=== PATIENT | male | born 1955 | race Caucasian/White ===

== ENCOUNTER 2023-11-07 20:39 | Inpatient (IN) | payer OTHER, SELFPAY ==
[2023-11-07] VITALS (7 sets, daily range): BP systolic 119–141; BP diastolic 62–90; BMI 23.4; BMI 22.7
[2023-11-07 15:46] LABS: % Basophils 0.5 % (0-2); % Eosinophils 3.6 % (0-6); % Immature Granulocytes 0.2 % (0-0.5); % Lymphocytes 24.7 % (20.5-51.1); % Monocytes 9.2 % (1.7-9.3); % Neutrophils 61.8 % (42.2-75.2); Absolute Eosinophils 0.2 10^3/uL (0-0.7); Absolute Lymphocytes 1.4 10^3/uL (1.2-3.4); Absolute Monocytes 0.5 10^3/uL (0.1-0.6); Absolute Neutrophils 3.4 10^3/uL (1.4-6.5); Hematocrit 37.6 % (39.0-52.0); Hemoglobin 13.4 g/dL (13.0-18.0); Mean Corp Hgb Conc. 35.6 g/dL (33.0-37.0); Mean Corpuscular Hgb 32.4 pg (27.0-31.0); Mean Corpuscular Volume 90.8 fL (80.0-94.0); Mean Platelet Volume 10.2 fL (7.4-10.4); Nucleated Red Blood Cells % 0 % (-); Platelet Count 265 10^3/uL (130-400); Red Blood Cell Count 4.14 10^6/uL (4.70-6.10); Red Cell Dist. Width 13.4 % (11.5-14.5); White Blood Cell Count 5.6 10^3/uL (4.8-10.8)
[2023-11-07 16:04] LABS: INR 1.03; PT 13.5 Sec (11.4-14.6)
[2023-11-07 16:05] LABS: APTT 28.5 Sec (23.4-35.0)
[2023-11-07 16:06] LABS: ALT (SGPT) 368 U/L (0-50); AST (SGOT) 182 U/L (17-59); Albumin 4.3 g/dl (3.5-5.0); Alkaline Phosphatase 438 U/L (38-126); Blood Urea Nitrogen 15 mg/dl (9-20); Calcium 9.8 mg/dl (8.4-10.2); Carbon Dioxide 22 mmol/L (22-30); Chloride 101 mmol/L (98-107); Glucose 217 mg/dl (70-99); Lipase 45 U/L (23-300); Potassium 3.9 mmol/L (3.5-5.1); Sodium 137 mmol/L (135-145); Total Bilirubin 11.2 mg/dl (0.2-1.3); Total Protein 7.1 g/dl (6.3-8.2); eGFR > 60.00
--- NOTE | 2023-11-07 17:22 | ED.GENMED ---
History of Present Illness
General
Chief Complaint: Abdominal Symptoms
Source: patient
Time Seen by Provider: 11/07/23 17:11
History of Present Illness
History of Present Illness:
68yoM with a history of erectile dysfunction presenting for evaluation of abdominal pain. Patient reports abdominal and back pain for the past month or so. Pain is worse with eating. He has not been eating much due to his symptoms and has lost
about 20 pounds since his symptoms began. About 1 to 2 weeks ago, he started to notice that his urine appeared dark and his stool was very light-colored. noticed today that his skin started to appear yellow. His PCP and he was advised to go
to the ED for evaluation. Patient denies any regular alcohol use and has only had 1-2 drinks over the past several months. He takes 4 extra strength Tylenol daily for his pain. No previous abdominal surgeries.
Review of Systems
Review of Systems
Constitutional: Reports weight loss and fatigue
ABD/GI: Reports abdominal pain and anorexia
Phy Exam
General Physical Exam
General Presentation: no apparent distress
General age: appears stated age
General Skin: warm and dry
General Habitus: elderly
General Mental: alert
ENT Exam
ENT Exam: normocephalic
Cardiovascular Exam
Cardiovascular Exam: regular rate/rhythm
Pulmonary Exam
Pulmonary Exam: no respiratory distress
Gastrointestinal Exam
Gastrointestinal Exam: soft, non distended and tender (+Mild tenderness in lower abdomen. No rebound or guarding. )
Skin Exam
Skin Exam: warm/dry and jaundice
Psychiatric Exam
Psychiatric Exam: normal mood/affect
Course
Orders/Labs/Results
Orders:
Orders
11/07/23 15:39
Acetaminophen Urgent
Comment: ADD ON
Complete Blood Count/With Diff Urgent
Comprehensive Metabolic Panel Urgent
Lipase Urgent
PT/INR [Prothrombin Time] Urgent
PTT Urgent
11/07/23 17:22
CT Abd/pelvis W Iv Cont Urgent
Comment:
Reason For Exam: Abd pain, jaundice
11/07/23 17:34
Add On- LAB Urgent
Tests Added?: Tylenol level
11/07/23 20:02
Admit/Transfer Patient As Directed
Co-Sign Provider:
Level of Care: Inpatient admission
Assign to:: Medical/Surgical
Physician / Group: Radha
Diagnosis: Jaundice, Pancreatic Mass
Reason for Hospitalization: GI consult
Expected length of stay greater than two midnights?: Yes
ELOS- Estimated Length of Stay in days: 3
I certify the patient meets the requirements for IP care: Yes
11/07/23 20:03
Code Status As Directed
Resuscitation Status: Full Code
PRN Pain Medication Management As Directed
May give lesser potent ordered pain med per pt: Yes
preference::
Protocol:: Medication orders for pain may be administered in a
manner that supports deferring to patient preference
when the pt is:
- Requesting an ordered lesser potent pain medication.
Least to most potent pain medications are defined
as: acetaminophen < NSAID < tramadol < opioids
(morphine, oxycodone, hydromorphone).
- Requesting a lesser dose of the same medication IF
ORDERED.
- Requesting a less intrusive route of administration
if both routes are prescribed by the provider (PO <
IV).
Abnormal Lab Results
11/07/23
15:39
RBC 4.14 L 10^6/uL
(4.70-6.10)
Hct 37.6 L %
(39.0-52.0)
MCH 32.4 H pg
(27.0-31.0)
Glucose 217 H mg/dl
(70-99)
Total Bilirubin 11.2 H mg/dl
(0.2-1.3)
AST 182 H U/L
(17-59)
ALT 368 H U/L
(0-50)
Alkaline Phosphatase 438 H U/L
(38-126)
Acetaminophen < 10 L ug/ml
(10-30)
11/07/23 15:39
11/07/23 15:39
Vital Signs
Initial and Last Documented VS:
Initial Vital Signs
Temp Pulse Resp BP Pulse Ox
97.9 F 74 16 129/77 98
11/07/23 15:30 11/07/23 15:30 11/07/23 15:30 11/07/23 15:30 11/07/23 15:30
Last Documented Vital Signs
Temp Pulse Resp BP Pulse Ox
97.9 F 74 16 131/90 99
11/07/23 15:30 11/07/23 15:30 11/07/23 15:30 11/07/23 20:00 11/07/23 20:00
MDM/Problems Addressed
Differential Diagnosis Includes:
68yoM here with abdominal pain x 1 month with new jaundice. +Fatigue and weight loss. VSS. He is visibly jaundiced on exam. No signs of peritonitis on abdominal exam. Differential diagnosis includes but is not limited to: malignancy,
choledocholithiasis, pancreatitis, hepatitis
Initial ED plan: Abdominal labs checked in triage. Total bilirubin 11, AST 182, ALT 368. Lipase normal. Will proceed with CT abdomen.
*Critical Care Note
Total Time (30-74mins, 75-104mins- exclusive of procedures): Not Applicable
Update Note
Update Note:
CT abdomen shows findings concerning for malignancy with pancreatic head mass with biliary ductal dilatation and possible hepatic metastases. Patient and informed of results. He was admitted for further evaluation.
ED Attending Note
-
Portions of this chart may have been created with voice recognition software.� Occasional wrong word or��sound alike� substitutions may have occurred due to the inherent limitations of voice recognition software.
Discharge Plan
Departure
Patient Disposition: Admit
Date of Disposition: 11/07/23
Time of Disposition: 19:26
Presentation/result/management discussed w/ accepting MD/DO: Hospitalist
Discharge Problem:
Pancreatic mass, Obstructive jaundice
Interventions
Interventions:
*Risk Screen - Suicide Last Done: 11/07/23 17:21
*General Assessment Last Done: 11/07/23 17:21
*Neglect/Abuse Screening Last Done: 11/07/23 17:21
ED- Fall Risk Assessment Last Done: 11/07/23 17:21
*ED COVID-19 Vaccine History Last Done: 11/07/23 17:21
RZ-Digxdz-Tukyifphys Assessment Last Done: 11/07/23 17:21
[2023-11-07 18:30] LABS: Acetaminophen < 10 ug/ml (10-30)
--- NOTE | 2023-11-07 19:59 | HPS.HSE ---
Family Physician
-
Family Physician: Sanford Momin, DO
Chief Complaint
-
Jaundice
History of Present Illness
Patient is a 68 y/o male without significant past medical history who presents with jaundice x 1 day. Patient reports he has been experincing some mid back pain that radiates around the rib cage for the past 2-3 weeks. Patient reports dark urine
with light colored stool over the past 1-2 weeks. Today he noticed his skin was yellow and he came to the emergency department for evaluation. Patient reports 20 lb weight loss over the past few weeks. He denies any fevers, sweats or chills.
Medical History
Past Medical History
Past Medical History: Reports None
Past Surgical History: Reports Other
Additional Past Surgical History:
Orchiectomy for undescended testicle
Social History
Tobacco: Non-smoker
Alcohol: Occasional (No alcohol since July)
Family History
Family History: Not pertinent
Allergies / Home Medications
Allergies reflects when Allergies were last updated in [employer].
Home Medications with original date entered in [employer]
Allergy/Medication List:
Allergies
Allergy/AdvReac Type Severity Reaction Status Date / Time
No Known Allergies Allergy Unverified 11/07/23 15:33
Home Medications
doxylamine succinate 25 mg tablet (Sleep Aid (doxylamine)) 25 mg PO HSPRN PRN sleep 11/07/23
ibuprofen 200 mg tablet 400 mg PO Q6HPRN PRN mild pain 11/07/23
sildenafil 25 mg tablet 25 mg PO DAILYPRN PRN ED 11/07/23
therapeutic multivitamin 1 tab PO DAILY 11/07/23
Review of Systems
-
A 12 point ROS was completed and negative except as noted: Yes
Constitutional: Denies Fever or Chills
Respiratory: Denies Cough or Trouble Breathing
Cardiac: Denies Chest Pain or Palpitations
Abdomen/GI: Reports See HPI
Physical Exam
Vital Signs
Vital Signs
Temp Pulse Resp BP Pulse Ox
97.9 F 74 16 141/84 98
11/07/23 15:30 11/07/23 15:30 11/07/23 15:30 11/07/23 19:09 11/07/23 19:10
Physical Exam
General: Comfortable and Conversant
HEENT: Moist mucous membranes and Other (Sclera Icteric)
Respiratory: Clear and Non Labored Respirations
Cardiac: S1/S2 and Regular Rhythm
GI: Soft, Non Tender and Non Distended
Rectal: Deferred by Provider
Musculoskeletal: No Clubbing, No Cyanosis and No Edema
Skin: Warm, Dry and Jaundice
Neuro: Awake, Alert, Oriented and Nonfocal/grossly intact
Psych: Calm
Laboratory Results
-
11/07/23 15:39
11/07/23 15:39
Laboratory Results
PT 13.5 Sec (11.4-14.6) 11/07/23 15:39
INR 1.03 11/07/23 15:39
APTT 28.5 Sec (23.4-35.0) 11/07/23 15:39
Total Bilirubin 11.2 mg/dl (0.2-1.3) H 11/07/23 15:39
AST 182 U/L (17-59) H 11/07/23 15:39
ALT 368 U/L (0-50) H 11/07/23 15:39
Alkaline Phosphatase 438 U/L (38-126) H 11/07/23 15:39
Lipase 45 U/L (23-300) 11/07/23 15:39
Abd/Pelvis CT Scan:
Findings suspicious for pancreatic head mass/primary malignancy with biliary ductal dilatation.
Several small scattered low-attenuation hepatic lesions suspicious for malignancy/metastatic disease
Sigmoid diverticulosis..
Small simple left renal cyst.
Data Reviewed
-
CT Scan: Report Reviewed by me
Lab Data: Labs Reviewed by me
Impression/Plan
-
Obstructive Jaundice secondary to Pancreatic Mass
-Consult GI
-Check CA 19-9
-Check Abd MRI
-NPO after midnight for possible ERCP/EUS tomorrow
DVT proph: Lovenox
Code Status: Full Code
--- NOTE | 2023-11-07 20:21 | W.PN.UPDATE ---
Update Note
Progress Note Update
Patient seen in conjunction with LISSET. I agree with her findings on history and physical. I concur with the assessment and plan unless stated otherwise.
Briefly this is a 68-year-old male who is otherwise healthy developed abdominal and back pain approximately over 1 month ago. Initially thought this was dyspepsia possibly from H. pylori. He was able to tolerate the pain with minimal nausea or
vomiting. He was using Tylenol 650 mg for pain control and especially to help him sleep at night. He follow-up with his PMD who did not provide a definitive diagnosis. Patient continued to tolerate pain. However this a.m. he woke up with skin
jaundice suddenly. He denied any changes in his abdominal pain. He denies any new vomiting. He denies fevers or chills. Patient denies any history of gallstones. He denies a family history of biliary or liver disease. He has no new medications.
In the emergency department the patient was afebrile hemodynamically stable in no acute distress. CBC was unremarkable. Chemistries were also stable except for elevated total bilirubin of 11.2 ALT of 22 AST of 360 and alk phos of 438. Lipase was
normal.
Her CT of the abdomen pelvis with contrast shows a pancreatic head mass with biliary ductal dilatation and small scattered lesions in the liver.
Assessment and plan
New onset jaundice with mild abdominal pain�new finding of pancreatic head mass consistent with likely pancreatic carcinoma.
- admit to med/surg
- NPO after midnight
- pain control and antiemetics
- check panc ca marker
- MRI abd/ MRCP in am
- possible endoscopic procedure in am
- GI consultation
DVT PPX - lovenox sq
Code Status - Full
[2023-11-07] MEDS: NSS 1000 IV (21:40)
--- NOTE | 2023-11-07 21:59 | PTCARENOTE ---
Patient arrived on unit @0 via stretcher, ambulate from stretcher to bed. Patient AAOx3 denies any pain or discomfort. Skin assessment completed, oriented to unit, call schwab in reach.
[2023-11-08] VITALS (9 sets, daily range): BP systolic 98–140; BP diastolic 57–81; BMI 22.6
[2023-11-08 07:58] LABS: Hematocrit 35.2 % (39.0-52.0); Hemoglobin 13.1 g/dL (13.0-18.0); Mean Corp Hgb Conc. 37.2 g/dL (33.0-37.0); Mean Corpuscular Hgb 34.1 pg (27.0-31.0); Mean Corpuscular Volume 91.7 fL (80.0-94.0); Mean Platelet Volume 10.2 fL (7.4-10.4); Platelet Count 237 10^3/uL (130-400); Red Blood Cell Count 3.84 10^6/uL (4.70-6.10); Red Cell Dist. Width 13.5 % (11.5-14.5); White Blood Cell Count 5.3 10^3/uL (4.8-10.8)
[2023-11-08] MEDS: FLOMAX 0.4 MG PO (07:58)
--- NOTE | 2023-11-08 08:40 | CON.GI ---
Addendum entered and electronically signed by Leonela Schafer MD 11/08/23 10:19:
I saw and examined the patient.
The DAMASCENER's note was reviewed and I agree with the note.
Comment: This is a very pleasant 68-year-old male with no significant past medical history who was in his usual state of health up until about 3 to 4 weeks ago when he started to experience epigastric pain radiating to the back associated with loss
of appetite and about a 8 pound weight loss. 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 He had seen his PCP and was recommended blood work and also
was started on PPI which he says somewhat helped with his symptoms and he was also going to get an H. pylori stool test so he had held his PPI for 10 days and then he had blood work yesterday but he had also noticed yesterday that he looked
jaundiced on his chest called his PCP and was told to come into the ER and on admission he had a CT scan which was concerning for a pancreatic head mass and had labs consistent with obstructive jaundice. No rectal bleeding or melena no diarrhea or
constipation. He says his colonoscopy was over 10 years ago he did have a Cologuard last year that was negative.
Assessment and plan. Obstructive jaundice and MRI confirms pancreatic head mass with liver lesions concerning for mets and also possible neoplastic lymphadenopathy noted. Will schedule him for EUS for biopsy and staging with ERCP and stent
placement with Dr. Garrison later today and if not able to perform today then tomorrow. Currently has no signs of cholangitis or pruritus. Oncology also has been consulted, CA 19-9 and CEA are pending
11/08/23 MRI with MRCP
IMPRESSION: There is an obstructing pancreatic head mass, almost certainly represents pancreatic carcinoma. See above description.
There are hepatic lesions with increased diffusion-weighted signal and decreased enhancement postcontrast, which are highly suspicious for hepatic metastatic lesions.
Slightly enlarged lymph node just inferior to the portacaval space. [id number] lymph node in the interaortocaval region. These are suspicious for neoplastic lymphadenopathy.
Original Note:
Consultation
-
Date/Time Consultation Requested: 11/07/23 2100
Date/Time Consultation Performed: 11/08/23 0840
Requesting Provider: Shae Jensen PA-C
Performing Provider: LISSET Bennett, Leonela Schafer MD
Reason for Consultation: jaundice
Medical History
Chief Complaint / HPI
Chief Complaint: back pain, jaundice
History of Present Illness:
Pt is a 68yo without significant past medical history with onset of jaundice with back pain, nausea and wt loss. On admission noted with bilirubin 11.2 with ASt 182, ALT 368, alk phod 438 with lipase of 45. CT on admission with concern for
pancreatic head mass/ malignancy with ductal dilatation, and several scattered low attenuation hepatic lesions with concern for mets.
In review with patient noted with recent GERD and though he had H pylori as recent partner Paty was treated for disease. He was due for OP stool testing but not completed. He also developed wt loss and back pain with increased NSAID use over
last 2-3 weeks. He then noted dark urine and change in stools with onset of jaundice. He has one episode of vomiting with mild nausea. He denies dysphagia. diarrhea, constipation, or black stools. distant
Past Medical History
Past Medical History: Other (H pylori)
Social History
Tobacco: Non-Smoker
Alcohol: Occasional
Drug: None
Personal: Partner
Living: With Family
Employment: Retired
Family History
Family History: Other (mother with lung CA, no family hx pancreatic CA or colon CA)
Allergies / Home Medications
Allergy/AdvReac Type Severity Reaction Status Date / Time
No Known Allergies Allergy Unverified 11/07/23 15:33
�Medication �Instructions �Recorded
doxylamine succinate 25 mg tablet 25 mg PO HSPRN PRN sleep 11/07/23
(Sleep Aid (doxylamine))
ibuprofen 200 mg tablet 400 mg PO Q6HPRN PRN mild pain 11/07/23
sildenafil 25 mg tablet 25 mg PO DAILYPRN PRN ED 11/07/23
therapeutic multivitamin 1 tab PO DAILY Supplement 11/07/23
Review of Systems
-
History Source: Patient
Constitutional: Reports Weight Loss
EENT: Reports No Symptoms
Respiratory: Reports No Symptoms
Cardiac: Reports No Symptoms
Abdomen/GI: Reports Nausea, Vomiting and Other (indigestion, change in stool color)
: Reports Dark Urine
Musculoskeletal: Reports Other (back pain )
Skin: Reports No Symptoms
Neurological: Reports No Symptoms
Endocrine: Reports No Symptoms
Hematologic/Lymphatic: Reports No Symptoms
Vital Signs
Temp Pulse Resp BP Pulse Ox
98.0 F 67 16 119/62 98
11/07/23 23:35 11/07/23 23:35 11/07/23 23:35 11/07/23 23:35 11/07/23 23:35
Physical Exam
Exam
General: Well Developed, Well Nourished and No Apparent Distress
HEENT: Normocephalic and Other (marked jaundice )
Respiratory: Clear
Cardiac: Regular Rhythm
GI: Soft, Non Tender and Non Distended
Musculoskeletal: No Clubbing and No Cyanosis
Skin: Warm and Dry
Neuro: Awake, Alert and AO x 3
Psych: Calm
Results
WBC 5.3 10^3/uL (4.8-10.8) 11/08/23 07:28
Hgb 13.1 g/dL (13.0-18.0) 11/08/23 07:28
Hct 35.2 % (39.0-52.0) L 11/08/23 07:28
MCV 91.7 fL (80.0-94.0) 11/08/23 07:28
Plt Count 237 10^3/uL (130-400) 11/08/23 07:28
Absolute Neuts (auto) 3.4 10^3/uL (1.4-6.5) 11/07/23 15:39
PT 13.5 Sec (11.4-14.6) 11/07/23 15:39
INR 1.03 11/07/23 15:39
APTT 28.5 Sec (23.4-35.0) 11/07/23 15:39
Sodium 137 mmol/L (135-145) 11/07/23 15:39
Potassium 3.9 mmol/L (3.5-5.1) 11/07/23 15:39
Chloride 101 mmol/L (98-107) 11/07/23 15:39
Carbon Dioxide 22 mmol/L (22-30) 11/07/23 15:39
BUN 15 mg/dl (9-20) 11/07/23 15:39
Creatinine 0.8 mg/dL (0.7-1.3) 11/07/23 15:39
Calcium 9.8 mg/dl (8.4-10.2) 11/07/23 15:39
Total Bilirubin 11.2 mg/dl (0.2-1.3) H 11/07/23 15:39
AST 182 U/L (17-59) H 11/07/23 15:39
ALT 368 U/L (0-50) H 11/07/23 15:39
Alkaline Phosphatase 438 U/L (38-126) H 11/07/23 15:39
Lipase 45 U/L (23-300) 11/07/23 15:39
Diagnostic Image Results:
11/07/23 CT Abd/pelvis W Iv Cont
Findings suspicious for pancreatic head mass/primary malignancy with biliary ductal dilatation.
Several small scattered low-attenuation hepatic lesions suspicious for malignancy/metastatic disease
Sigmoid diverticulosis..
Small simple left renal cyst
Prior GI Procedures:
EGD: none
Colonoscopy: years ago-- hx colonguard neg last year
Assessment / Plan
-
Pt is a 68yo without significant past medical history with onset of jaundice with back pain, nausea, wt loss, dark urine and change in stool color. On admission noted with bilirubin 11.2 with ASt 182, ALT 368, alk phod 438 with lipase of 45. CT on
admission with concern for pancreatic head mass/ malignancy with ductal dilatation, and several scattered low attenuation hepatic lesions with concern for mets. distant hx colonoscopy. reports neg cologuard last year.
-new onset jaundice with nausea/indigestion and back pain with elevated LFT's
-CT concerning for pancreatic mass/ductal dilatation and hepatic lesions
-recent NSAID use for back pain
-wt loss
PLAN:
etiology of jaundice/nausea/wt loss/back pain with concern for pancreatic malignancy with alsi noted liver lesions
await MRI reading
trend LFT's
reviewed with patient will likely need EUS/ERCP with stenting and biopsy possible later today vs tomorrow
Ct ordered by primary team reviewed with nursing to hold for now with possible EUS today
for oncology evaluation
add CEA and Ca19-9
will follow
-
-
Thank you for consultation and allowing me to participate in the patient's care. Please call the professional benefits sales consultant GI physician during the after hours with any questions or concerns.
--- NOTE | 2023-11-08 08:49 | W.PN.HOSP.TC ---
Today's Communication/Plan
-
See PN
Assessment / Plan
Assessment / Plan
68yo M with no significant PMHx, never a smoker, however drinking 1-2 bottles of beer daily for many years came with 1 mo of epigastric pain and jaundice, found pancreatic mass and signs of biliary and pancreatic duct obstruction with bilirubinemia
A/P
#Pancreatic mass with biliary and pancreatic duct obstruction with several hepatic lesions suspected for metastatic disease
Follow LFT
MRCP reading pending
GI consult
Onc consult
initial imaging for staging with CT head/chest/abd/pelvis
#Diverticulosis w/o diverticulitis
#Simple L renal cyst
high fiber diet
DVT ppx Lovenox
Full code
I have spent at least 58min reviewing chart, test results, communication with consultants and direct patient care
Anticipated Discharge: 24 - 48 hours
Subjective/Interval History
-
Date of Service: November 08, 2023
Objective Data
-
Labs:
Laboratory Results
11/08/23
07:28
WBC 5.3
Hgb 13.1
Hct 35.2 L
Plt Count 237
Sodium Pending
Potassium Pending
Chloride Pending
Carbon Dioxide Pending
BUN Pending
Creatinine Pending
Glucose Pending
Calcium Pending
Total Bilirubin Pending
AST Pending
ALT Pending
Alkaline Phosphatase Pending
Vital Signs:
Vital Signs
Temp Pulse Resp BP Pulse Ox
98.0 F 67 16 119/62 98
11/07/23 23:35 11/07/23 23:35 11/07/23 23:35 11/07/23 23:35 11/07/23 23:35
I&O
11/07/23 11/08/23 11/09/23
06:59 06:59 06:59
Intake Total 934 / 934
Balance 934 / 934
Review of Systems
-
History Source: Patient
All other systems: Reviewed and negative
Physical Exam
-
General: No Apparent Distress
HEENT: Normocephalic
Respiratory: Clear to Auscultation
Cardiac: Regular Rhythm and S1/S2
GI: Soft and Nontender (mild epigastric tenderness )
Genito-urinary: No Costovertebral Tender
Skin: Warm and Jaundice
Neuro: Awake, Alert, Oriented and AO x 3
Psych: Calm
[2023-11-08 08:52] LABS: ALT (SGPT) 322 U/L (0-50); AST (SGOT) 160 U/L (17-59); Albumin 3.8 g/dl (3.5-5.0); Alkaline Phosphatase 431 U/L (38-126); Blood Urea Nitrogen 11 mg/dl (9-20); Calcium 9.2 mg/dl (8.4-10.2); Carbon Dioxide 23 mmol/L (22-30); Chloride 105 mmol/L (98-107); Estimated Creatinine Clearance 117 ml/min; Glucose 115 mg/dl (70-99); Potassium 4.1 mmol/L (3.5-5.1); Sodium 139 mmol/L (135-145); Total Bilirubin 10.9 mg/dl (0.2-1.3); Total Protein 6.4 g/dl (6.3-8.2); eGFR > 60.00
--- NOTE | 2023-11-08 10:53 | CON.ONC ---
Documented by User: LISSET Randall 11/08/23 11:06
Impression
Impression
p/w painless jaundice
pancreatic mass with biliary and pancreatic duct obstruction, several hepatic lesions, and adenopathy suggestive of pancreatic cancer with metastasis
weight loss
Plan
Plan
f/u CEA, Ca 19.9
f/u CT chest
f/u hepatitis C ab
f/u ERCP/EUS
f/u GI consult
Will follow for pathology and arrange close outpatient follow up with my office
Patient History
History of Present Illness
68yo M presented with jaundice. He tells me that he has become jaundice with tea colored urine over the past several weeks. He was referred to the ER with OP labs showed an elevated bilirubin level for further evaluation. ER evaluation showed WBC
5.6, Hgb 13.4, MVC 90.8, platelet count 265,000, PT 13.5, INR 1.03, PTT 28.5, Tbili 11.2, AST 160, ALT 322, Alk phos 431. CT ab/pelvis showed a pancreatic head mass with biliary ductal dilatation and several small scattered low-attenuation hepatic
lesions. MRCP showed obstructing pancreatic head mass, hepatic lesions, and slightly enlarged lymph node just inferior to the portacaval space and lymph node in the interaortocaval region. He has been admitted for further evaluation.
Afebrile, no hypoxia or hypotension
Past-Medical/Surgical History
PSH wisdom teeth, undescended testicle
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 Lives with partner, Paty.
Family: mother lung cancer
Patient Medication
�Medication �Instructions �Recorded �Confirmed �Last Taken �Type
doxylamine succinate 25 mg tablet 25 mg PO HSPRN PRN sleep 11/07/23 11/07/23 Unknown History
(Sleep Aid (doxylamine))
ibuprofen 200 mg tablet 400 mg PO Q6HPRN PRN mild pain 11/07/23 11/07/23 11/07/23 History
sildenafil 25 mg tablet 25 mg PO DAILYPRN PRN ED 11/07/23 11/07/23 Unknown History
therapeutic multivitamin 1 tab PO DAILY Supplement 11/07/23 11/07/23 11/07/23 History
Active Medications
Generic Name Dose Route Start Last Admin
Trade Name Freq PRN Reason Stop Dose Admin
Acetaminophen 650 mg 11/07/23 21:11
Acetaminophen 325 Mg Tablet PO 12/05/23 21:10
Q4HPRN PRN
mild pain/ fever>100.5F
Enoxaparin Sodium 40 mg 11/08/23 18:00
Enoxaparin Sodium 40 Mg/0.4 Ml Syringe SC 12/06/23 17:59
QPM CHHAYA
Sodium Chloride 1,000 mls @ 80 mls/hr 11/07/23 21:11 11/07/23 21:40
Nss IV 1,000 mls
.[id number] CHHAYA Administration
Ondansetron HCl 4 mg 11/07/23 21:11
Ondansetron 4 Mg/2 Ml Vial IV 12/05/23 21:10
Q6HPRN PRN
NAUSEA/VOMITING
Oxycodone HCl 5 mg 11/07/23 21:11
Oxycodone 5 Mg Regular Release Tablet PO 11/21/23 21:10
Q4HPRN PRN
moderate/severe pain
Sodium Chloride 0 flush 11/07/23 22:00
Sodium Chloride 0.9% (Flush) Syringe IV 12/05/23 21:59
PER PROTOCOL CHHAYA
Tamsulosin HCl 0.4 mg 11/08/23 08:00 11/08/23 07:58
Tamsulosin 0.4 Mg Capsule PO 12/06/23 07:59 0.4 mg
DAILY CHHAYA Administration
Review of Systems
-
Review of systems notable for HPI, otherwise negative
Physical Exam
-
General: No Apparent Distress and Conversant
HEENT: Jaundice and Moist Mucous Membranes
Cardiology: Normal Sinus Rhythm
Pulmonary: Clear
GI: Soft
Extremities: Pulses Present; Negative Phlebitic Signs or Edema
Neurology: Non Focal
Skin: Warm
Psych: Calm
Labs
Lab Results
WBC 5.3 10^3/uL (4.8-10.8) 11/08/23 07:28
RBC 3.84 10^6/uL (4.70-6.10) L 11/08/23 07:28
Hgb 13.1 g/dL (13.0-18.0) 11/08/23 07:28
Hct 35.2 % (39.0-52.0) L 11/08/23 07:28
MCV 91.7 fL (80.0-94.0) 11/08/23 07:28
MCH 34.1 pg (27.0-31.0) H 11/08/23 07:28
MCHC 37.2 g/dL (33.0-37.0) H 11/08/23 07:28
RDW 13.5 % (11.5-14.5) 11/08/23 07:28
Plt Count 237 10^3/uL (130-400) 11/08/23 07:28
MPV 10.2 fL (7.4-10.4) 11/08/23 07:28
Abs Immat Gran (auto) 0.0 10^3/uL (0-0.05) 11/07/23 15:39
Absolute Neuts (auto) 3.4 10^3/uL (1.4-6.5) 11/07/23 15:39
Absolute Lymphs (auto) 1.4 10^3/uL (1.2-3.4) 11/07/23 15:39
Absolute Monos (auto) 0.5 10^3/uL (0.1-0.6) 11/07/23 15:39
Absolute Eos (auto) 0.2 10^3/uL (0-0.7) 11/07/23 15:39
Absolute Basos (auto) 0.0 10^3/uL (0-0.2) 11/07/23 15:39
Immature Gran % 0.2 % (0-0.5) 11/07/23 15:39
Neutrophils % 61.8 % (42.2-75.2) 11/07/23 15:39
Lymphocytes % 24.7 % (20.5-51.1) 11/07/23 15:39
Monocytes % 9.2 % (1.7-9.3) 11/07/23 15:39
Eosinophils % 3.6 % (0-6) 11/07/23 15:39
Basophils % 0.5 % (0-2) 11/07/23 15:39
Creatinine 0.7 mg/dL (0.7-1.3) 11/08/23 07:28
Vital Signs
Vital Signs
Temp Pulse Resp BP Pulse Ox
98.1 F 68 16 140/77 98
11/08/23 07:00 11/08/23 07:00 11/08/23 07:00 11/08/23 07:00 11/08/23 07:00

Documented by User: Baljeet Hammer DO 11/08/23 11:14
Impression
Impression
Painless jaundice
Pancreatic mass with biliary and pancreatic duct obstruction, several hepatic lesions, and adenopathy suggestive of pancreatic cancer with metastasis
Weight loss
Plan
Plan
f/u CEA, Ca 19.9
f/u CT chest
f/u hepatitis C ab
f/u ERCP/EUS
f/u GI consult
Will follow for pathology and arrange close outpatient follow up with my office for systemic therapy for what appears to be advanced disease
Patient History
History of Present Illness
68yo M presented with jaundice. He tells me that he has become jaundice with tea colored urine over the past several weeks. He was referred to the ER with OP labs showed an elevated bilirubin level for further evaluation. ER evaluation showed WBC
5.6, Hgb 13.4, MVC 90.8, platelet count 265,000, PT 13.5, INR 1.03, PTT 28.5, Tbili 11.2, AST 160, ALT 322, Alk phos 431. CT ab/pelvis showed a pancreatic head mass with biliary ductal dilatation and several small scattered low-attenuation hepatic
lesions. MRCP showed obstructing pancreatic head mass, hepatic lesions, and slightly enlarged lymph node just inferior to the portacaval space and lymph node in the interaortocaval region. He has been admitted for further evaluation.
[2023-11-08] MEDS: NSS 1000 IV (11:12)
[2023-11-08 11:48] LABS: CEA 4.95 ng/ml
--- NOTE | 2023-11-08 13:53 | PN.CDI ---
Addendum entered and electronically signed by Conor Turk MD 11/08/23 14:09:
Not applicable to this patient
Original Note:
CDI
- -
CDI:
Physician Documentation Request
Admit Date: 11/07/23 20:39
Dear Doctor Rosalee,
Clinical Indicators:
Patient admitted with pancreatic mass & jaundice.
11/07 note/assessment: 'pt reports a 20 lb weight loss in past month with decreased appetite due to pain that
radiated around his back.'
-'Weight loss reflective of (10%), significant. With weight loss of > 5% in 1 month and
< 75% estimated needs pt meets AND/ASPEN criteria for moderate protein calorie
malnutrition of chronic illness.'
Based on the above information and your assessment, which of the following most accurately represents the patient's nutritional status?
Moderate Protein Calorie Malnutrition
Other (please specify)
Winth[place] Criteria (ACP Hospitalist 2017)
2 or more criteria must be present for either
non severe or severe malnutrition
Note that the criteria differs related to the
presence of an acute or chronic illness
Acute Illness Chronic Illness
Energy Intake Non Severe: <75% for >7 days Non Severe: <75% for >1 month
Severe: <50% for >5 days Severe: <75% for >1 month
Weight Loss Non Severe: 1-2% over 1 week Non Severe: 5% over 1 month
5% over 1 month 7.5% over 3 months
7.5% over 3 months 10% over 6 months
1 year N/A 20% over 1 year
Severe: >2% over 1 week Severe: >5% over 1 month
>5% over 1 month >7.5% over 3 months
>7.5% over 3 months >10% over 6 months
1 year N/A >20% over 1 year
Body Fat Non Severe: Mild Decrease Non Severe: Mild Loss
Severe: Moderate Decrease Severe: Severe Loss
Muscle Mass Non Severe: Mild Decrease Non Severe: Mild Loss
Severe: Moderate Decrease Severe: Severe Loss
Fluid Accumulation Non Severe: Mild Accumulation Non Severe: Mild Accumulation
Severe: Moderate to severe Severe: Moderate to severe
accumulation accumulation
Reduced Supervisor [employer] Strength Non Severe: N/A Non Severe: N/A
Severe: Measurably reduced Severe: Measurably reduced
Additional criteria that can be used to Determine if Mild or Moderate Malnutrition ([employer] Manual 2018)
Mild Moderate Severe
Albumin gm/dl <3.0 gm/dl <2.5 gm/dl <2.0 gm/dl
Pre Albumin mg/dl <15 gm/dl <10 mg/dl <5.0 mg/dl
BMI <18.5 <17 <16
Use of terms such as suspected, likely, concern for, or probable (associated with a specific diagnosis that is being evaluated, monitored, or treated as if it exists) are acceptable and can be coded in the inpatient setting, when documented at the
time of discharge.
Thank you,
Tasia Larson RN BSN
CDI Specialist
available via tiger text
Please use your independent medical judgment in providing your response.
--- NOTE | 2023-11-08 15:21 | CM ---
Alert awake oriented patient who lives with his PHILLY Newman who lives in a 2 story home with 0 step to enter and 12 steps to bed and bathroom. Pt was at an ERCP spoke with PHILLY Newman on phone.He is independent in driving and in all activities of daily
living.Paty believes he will be dc with out pt follow up.
No VN hx / No SNF history
Pharmacy [facility]
PCP DR Grace Momin
PLAN Home with no anticipated VN needs
[2023-11-08] MEDS: OMNIPAQUE 50 ML PO (16:27)
[2023-11-08] MEDS: LOVENOX 40 MG SC (17:48)
[2023-11-08 20:44] LABS: Hepatitis C Antibody Negative (Negative)
[2023-11-09] MEDS: NSS 1000 IV (04:43)
[2023-11-09 06:00] VITALS: BMI 23.1
[2023-11-09 06:27] LABS: Hematocrit 33.3 % (39.0-52.0); Hemoglobin 12.2 g/dL (13.0-18.0); Mean Corp Hgb Conc. 36.6 g/dL (33.0-37.0); Mean Corpuscular Hgb 33.3 pg (27.0-31.0); Mean Platelet Volume 10.6 fL (7.4-10.4); Platelet Count 237 10^3/uL (130-400); Red Blood Cell Count 3.66 10^6/uL (4.70-6.10); Red Cell Dist. Width 13.6 % (11.5-14.5); White Blood Cell Count 5.6 10^3/uL (4.8-10.8)
[2023-11-09 06:40] LABS: ALT (SGPT) 304 U/L (0-50); AST (SGOT) 135 U/L (17-59); Albumin 3.6 g/dl (3.5-5.0); Alkaline Phosphatase 374 U/L (38-126); Blood Urea Nitrogen 11 mg/dl (9-20); Carbon Dioxide 22 mmol/L (22-30); Chloride 104 mmol/L (98-107); Direct Bilirubin 3.7 mg/dl (0.0-0.4); Estimated Creatinine Clearance > 125 ml/min; Glucose 148 mg/dl (70-99); Potassium 4.4 mmol/L (3.5-5.1); Sodium 139 mmol/L (135-145); Total Bilirubin 5.1 mg/dl (0.2-1.3); Total Protein 6.2 g/dl (6.3-8.2); eGFR > 60.00
[2023-11-09 07:30] VITALS: BP 119/71
[2023-11-09] MEDS: FLOMAX 0.4 MG PO (08:22)
--- NOTE | 2023-11-09 08:47 | W.PN.GI.CBS2 ---
Today's Communication / Plan
-
-- good nutrition. GI sign off, Dr. Garrison in 4 months
Assessment / Plan
-
Pt is a 68yo without significant past medical history with onset of jaundice with back pain, nausea, wt loss, dark urine and change in stool color found to have unresectable pancreatic cancer based on EUS and imaging with FNA pending done on
11/08/2023 now status post palliative stenting. On admission noted with bilirubin 11.2 with ASt 182, ALT 368, alk phod 438 with lipase of 45. CT on admission with concern for pancreatic head mass/ malignancy with ductal dilatation, and several
scattered low attenuation hepatic lesions with concern for mets. distant hx colonoscopy. reports neg cologuard last year.
-new onset jaundice with nausea/indigestion and back pain with elevated LFT's
-CT concerning for pancreatic mass/ductal dilatation and hepatic lesions
-recent NSAID use for back pain
-wt loss
PLAN:
etiology of jaundice/nausea/wt loss/back pain with concern for pancreatic malignancy with alsi noted liver lesions
await MRI reading
trend LFT's
reviewed with patient will likely need EUS/ERCP with stenting and biopsy possible later today vs tomorrow
Ct ordered by primary team reviewed with nursing to hold for now with possible EUS today
for oncology evaluation
add CEA and Ca19-9
will follow
11/08/[address] Garrison showed a pancreatic head mass staged T2 NX MX status post FNA. There is sonographic evidence suggesting vascular involvement with invasion into the SMV with encasement. Not a surgical candidate. Also imaging is
concerning for metastatic disease. Enlarged lymph node in the fernando hepatis region
-- ERCP performed malignant appearing severe biliary stricture in the middle third of the main bile duct status post biliary sphincterotomy plastic stent placed into the right hepatic duct and covered metal stent in the common bile duct.
11/09/2023 -patient will need to follow-up with Dr. Garrison in 4 months, oncology for metastatic pancreatic cancer treatment
-- Review of labs today show a significant improvement in total bilirubin from 11 to 5
CA 19-9 pending
- I reviewed the procedures with him in detail and told him oncology would be running the show. I reinforced the need for good nutrition.
GI will sign off. Care per primary team and oncology. Needs follow-up with Dr. Garrison in 4 months
Subjective
Subjective
Date of Service: November 09, 2023
patient denies any pain and noticed his urine is less dark
Objective
Data Reviewed
Laboratory Data:
Laboratory Results
11/09/23 05:20
11/09/23 05:20
Laboratory Results
PT 13.5 Sec (11.4-14.6) 11/07/23 15:39
INR 1.03 11/07/23 15:39
APTT 28.5 Sec (23.4-35.0) 11/07/23 15:39
Total Bilirubin 5.1 mg/dl (0.2-1.3) H D 11/09/23 05:20
AST 135 U/L (17-59) H 11/09/23 05:20
ALT 304 U/L (0-50) H 11/09/23 05:20
Alkaline Phosphatase 374 U/L (38-126) H 11/09/23 05:20
Lipase 45 U/L (23-300) 11/07/23 15:39
Vital Signs and I&O:
Vital Signs
Temp Pulse Resp BP Pulse Ox
98.0 F 64 16 119/71 99
11/09/23 07:30 11/09/23 07:30 11/09/23 07:30 11/09/23 07:30 11/09/23 07:30
I&O
11/08/23 11/09/23 11/10/23
06:59 06:59 06:59
Intake Total 2474 / 2474
Balance 2474 / 2474
Physical Exam
Physical Exam
HEENT: Other (icteric)
Pulmonary: Clear
GI: Soft
Neuro: Non Focal
--- NOTE | 2023-11-09 10:58 | W.PN.ONC2 ---
Today's Communication / Plan
-
Close OP follow up will be arranged upon discharge
Impression
Impression
p/w Painless jaundice
Pancreatic mass with biliary and pancreatic duct obstruction, several hepatic lesions, and adenopathy suggestive of pancreatic cancer with metastasis. CT chest no evidence of pulmonary mets. NML CEA.
ERCP/EUS-malignant appearing severe biliary stricture of the main bile duct s/p biliary sphincterotomy plastic stent placed into the right hepatic duct and covered metal stent in the common bile duct.
Weight loss
Plan
Plan
f/u Ca 19.9
Will follow for pathology and arrange close outpatient follow up with my office for systemic therapy for what appears to be advanced disease
Subjective/Objective
Chief Complaint
no new complaints
improved Tbili s/p stent
Subjective
denies pain, n/v
Vital Signs:
Vital Signs
Temp Pulse Resp BP Pulse Ox
98.0 F 64 16 119/71 99
11/09/23 07:30 11/09/23 07:30 11/09/23 07:30 11/09/23 07:30 11/09/23 07:30
Lab Results:
Laboratory Data
WBC 5.6 10^3/uL (4.8-10.8) 11/09/23 05:20
Hgb 12.2 g/dL (13.0-18.0) L 11/09/23 05:20
Plt Count 237 10^3/uL (130-400) 11/09/23 05:20
PT 13.5 Sec (11.4-14.6) 11/07/23 15:39
INR 1.03 11/07/23 15:39
APTT 28.5 Sec (23.4-35.0) 11/07/23 15:39
eGFR > 60.00 11/09/23 05:20
Physical Exam
General: No Apparent Distress and Conversant
HEENT: Jaundice and Moist Mucous Membranes
Cardiology: Normal Sinus Rhythm
Pulmonary: Clear
GI: Soft
Extremities: Pulses Present; Negative Phlebitic Signs or Edema
Neurology: Non Focal
Skin: Warm
Psych: Calm
Review of Systems
Review of Systems
ROS notable for subjective, otherwise negative
--- NOTE | 2023-11-09 11:06 | W.PN.HOSP.TC ---
Today's Communication/Plan
-
dc
Assessment / Plan
Assessment / Plan
68yo M with no significant PMHx, never a smoker, however drinking 1-2 bottles of beer daily for many years came with 1 mo of epigastric pain and jaundice, found pancreatic mass and signs of biliary and pancreatic duct obstruction with bilirubinemia,
s/p ERCP with plastic and metal biliary stents placed on 11/09/23 with subsequent decrease in bilirubin. MRI abd found liver lesion suspicious for mets and pancreatic head tumor also encircling SMA and SMV without obstruction. Onc planning for
further outpatient workup. Medically stable for d/c
A/P
#Pancreatic mass with biliary and pancreatic duct obstruction with several hepatic lesions suspected for metastatic disease
Follow LFT
GI consult
Onc consult
initial imaging for staging with CT head/chest/abd/pelvis
#Diverticulosis w/o diverticulitis
#Simple L renal cyst
high fiber diet
DVT ppx Lovenox
Full code
I have spent at least 58min reviewing chart, test results, communication with consultants and direct patient care
Anticipated Discharge: Today
Subjective/Interval History
-
Date of Service: November 09, 2023
Objective Data
-
Labs:
Laboratory Results
11/09/23
05:20
WBC 5.6
Hgb 12.2 L
Hct 33.3 L
Plt Count 237
Sodium 139
Potassium 4.4
Chloride 104
Carbon Dioxide 22
BUN 11
Creatinine 0.6 L
Glucose 148 H
Calcium 9.0
Total Bilirubin 5.1 H D
AST 135 H
ALT 304 H
Alkaline Phosphatase 374 H
Vital Signs:
Vital Signs
Temp Pulse Resp BP Pulse Ox
98.0 F 64 16 119/71 99
11/09/23 07:30 11/09/23 07:30 11/09/23 07:30 11/09/23 07:30 11/09/23 07:30
I&O
11/08/23 11/09/23 11/10/23
06:59 06:59 06:59
Intake Total 7834 / 3324
Balance 9784 / 2474
Physical Exam
-
General: No Apparent Distress
HEENT: Normocephalic, Atraumatic and Moist Mucous Membranes
Cardiac: Regular Rhythm
Skin: Warm
Neuro: Awake, Alert, Oriented and AO x 3
--- NOTE | 2023-11-09 11:17 | W.DCSUMMARY ---
Discharge Summary
Discharge Data
Date of Admission: 11/07/23
Date of Discharge: 11/09/23
-
Pending Results: No
Hospital Course
68yo M with no significant PMHx, never a smoker, however drinking 1-2 bottles of beer daily for many years came with 1 mo of epigastric pain and jaundice, found pancreatic mass and signs of biliary and pancreatic duct obstruction with bilirubinemia,
s/p ERCP with plastic and metal biliary stents placed on 11/09/23 with subsequent decrease in bilirubin. MRI abd found liver lesion suspicious for mets and pancreatic head tumor also encircling SMA and SMV without obstruction. Onc planning for
further outpatient workup. Medically stable for d/c with close outpatient follow up with Onc. GI to see patient in 4mo
I have spent at least 38min discharging the patient
A/P
#Pancreatic mass with biliary and pancreatic duct obstruction with several hepatic lesions suspected for metastatic disease
#Diverticulosis w/o diverticulitis
#Simple L renal cyst
Discharge Plan
-
Patient Disposition: Home (Routine Discharge)
Diet: Low Fat
Driving Restrictions: As prior to admission
Referrals:
Baljeet Hammer DO [Active] - in less than 1 week (for mgmt of pancreatic tumor)
Sanford Momin DO [Family Provider] -
Ulises Garrison MD [Active] - (Schedule in 4 months)
Prescriptions:
New
tamsulosin 0.4 mg Capsule
0.4 mg PO DAILY Qty: 30 0RF
Continued
therapeutic multivitamin Tablet
1 tab PO DAILY
sildenafil 25 mg Tablet
25 mg PO DAILYPRN PRN (Reason: ED)
ibuprofen 200 mg Tablet
400 mg PO Q6HPRN PRN (Reason: mild pain)
Sleep Aid (doxylamine) 25 mg Tablet
25 mg PO HSPRN PRN (Reason: sleep)
Discharge Date and Time
Print Language: SYRIAN
[2023-11-09 13:05] VITALS: BP 116/75
--- NOTE | 2023-11-09 17:39 | CM ---
MD entered order for discharge.
spoke with pt he said he was ready for dc.
Paty MARA will drive hi m home.
Offered Vn he declined need.
PLAn Home no needs
[2023-11-10 10:29] LABS: CA 19-9 1375 U/mL (<=35)
== END 2023-11-09 13:32 | disposition home or self-care (01) | DRG 435 ==
LOC: 3 WEST ACU 20:39
PROVIDERS: Internal Medicine Gastroenterology; Nurse Practitioner Adult Health; Physician Assistant Medical; ADMITTING PHYSICIAN Internal Medicine; ATTENDING PHYSICIAN Internal Medicine; CONSULT PHYSICIAN Internal Medicine Gastroenterology; CONSULT PHYSICIAN Internal Medicine Hematology & Oncology; EMERGENCY PHYSICIAN Student in an Organized Health Care Education/Training Program; FAMILY PHYSICIAN Student in an Organized Health Care Education/Training Program
PROC: 0FBG8ZX Excision of Pancreas, Via Natural or Artificial Opening Endoscopic, Diagnostic (ICD-10-PCS; 2023-11-08)
PROC: 0F798DZ Dilation of Common Bile Duct with Intraluminal Device, Via Natural or Artificial Opening Endoscopic (ICD-10-PCS; 2023-11-08)
DX: C25.0 Malignant neoplasm of head of pancreas (principal); K83.1 Obstruction of bile duct; C78.7 Secondary malignant neoplasm of liver and intrahepatic bile duct; R63.4 Abnormal weight loss; K83.8 Other specified diseases of biliary tract; K57.30 Diverticulosis of large intestine without perforation or abscess without bleeding; N28.1 Cyst of kidney, acquired; K21.9 Gastro-esophageal reflux disease without esophagitis; M54.6 Pain in thoracic spine; N52.9 Male erectile dysfunction, unspecified; R59.0 Localized enlarged lymph nodes; R79.89 Other specified abnormal findings of blood chemistry; Z68.23 Body mass index [BMI] 23.0-23.9, adult; Z79.899 Other long term (current) drug therapy
CPT/HCPCS: 88172; 88173; 88305; 70450; 71260; 74177; 74183; 74330; 76000; 80053; 80143; 82248; 82378; 83690; 85025; 85027; 85610; 85730; 86301; 86803; 99285; A9575; C1769; C1874; C2617; Q9967

== ENCOUNTER → 2023-11-28 10:26 | Outpatient (REF) | payer OTHER, SELFPAY ==
[2023-11-28 10:52] LABS: % Basophils 0.4 % (0-2); % Eosinophils 4.9 % (0-6); % Lymphocytes 27.2 % (20.5-51.1); % Monocytes 8.6 % (1.7-9.3); % Neutrophils 58.9 % (42.2-75.2); Absolute Eosinophils 0.3 10^3/uL (0-0.7); Absolute Lymphocytes 1.5 10^3/uL (1.2-3.4); Absolute Monocytes 0.5 10^3/uL (0.1-0.6); Absolute Neutrophils 3.2 10^3/uL (1.4-6.5); Hematocrit 39.1 % (39.0-52.0); Mean Corp Hgb Conc. 35.8 g/dL (33.0-37.0); Mean Corpuscular Volume 92.2 fL (80.0-94.0); Mean Platelet Volume 9.6 fL (7.4-10.4); Platelet Count 194 10^3/uL (130-400); Red Blood Cell Count 4.24 10^6/uL (4.70-6.10); Red Cell Dist. Width 12.2 % (11.5-14.5); White Blood Cell Count 5.4 10^3/uL (4.8-10.8)
[2023-11-28 12:14] LABS: ALT (SGPT) 56 U/L (0-50); AST (SGOT) 40 U/L (17-59); Albumin 4.2 g/dl (3.5-5.0); Alkaline Phosphatase 174 U/L (38-126); Blood Urea Nitrogen 9 mg/dl (9-20); Calcium 9.6 mg/dl (8.4-10.2); Carbon Dioxide 23 mmol/L (22-30); Chloride 105 mmol/L (98-107); Glucose 118 mg/dl (70-99); Sodium 142 mmol/L (135-145); Total Bilirubin 1.4 mg/dl (0.2-1.3); Total Protein 6.7 g/dl (6.3-8.2); eGFR > 60.00
[2023-11-28 12:53] LABS: Phosphorus 3.5 mg/dl (2.5-4.5)
[2023-12-01 03:16] LABS: CA 19-9 2211 U/mL (<=35)
== END ==
LOC: OIDL 10:26
PROVIDERS: ATTENDING PHYSICIAN Internal Medicine Hematology & Oncology
DX: C25.0 Malignant neoplasm of head of pancreas (principal); C78.7 Secondary malignant neoplasm of liver and intrahepatic bile duct
CPT/HCPCS: 36415; 80053; 84100; 85025; 86301

== ENCOUNTER → 2023-11-28 10:28 | Outpatient (REF) | payer OTHER, SELFPAY ==
[2023-11-28 11:56] LABS: Reticulocyte Count 1.2 % (0.4-2.8)
[2023-11-28 12:05] LABS: INR 1.04; PT 13.6 Sec (11.4-14.6)
[2023-11-28 12:06] LABS: APTT 31.5 Sec (23.4-35.0); Fibrinogen 358 MG/DL (199-459)
[2023-11-28 12:11] LABS: Urine Albumin Negative (Neg - Trace); Urine Bilirubin Negative (Negative); Urine Character Clear (Clear); Urine Color Yellow; Urine Glucose Negative (Negative); Urine Ketone Negative (Negative); Urine Leukocyte Negative (Negative); Urine Nitrite Negative (Negative); Urine Occult Blood Negative (Negative); Urine Urobilinogen Negative (Neg - 1+)
[2023-11-28 12:12] LABS: Amylase 37 U/L (30-110); Creatine Phosphokinase 55 U/L (55-170); LDH 185 U/L (120-246); Lipase 42 U/L (23-300); Magnesium 2.1 mg/dl (1.6-2.3)
[2023-11-28 13:22] LABS: Free T4 1.02 ng/dl (0.78-2.19)
[2023-11-28 13:35] LABS: TSH 1.28 uIU/ml (0.47-4.68)
== END ==
LOC: OIDL 10:28
PROVIDERS: ATTENDING PHYSICIAN Internal Medicine Hematology & Oncology
DX: C25.0 Malignant neoplasm of head of pancreas (principal); C78.7 Secondary malignant neoplasm of liver and intrahepatic bile duct
CPT/HCPCS: 81003; 82150; 82550; 83615; 83690; 83735; 84439; 84443; 85045; 85384; 85610; 85730

== ENCOUNTER → 2023-12-04 07:19 | Outpatient (REF) | payer SELFPAY ==
[2023-12-04 08:12] LABS: Urine Albumin Trace (Neg - Trace); Urine Bilirubin Negative (Negative); Urine Character Clear (Clear); Urine Color Yellow; Urine Glucose Negative (Negative); Urine Ketone Negative (Negative); Urine Leukocyte Negative (Negative); Urine Nitrite Negative (Negative); Urine Occult Blood Negative (Negative); Urine Specific Gravity 1.025 (<1.030); Urine Urobilinogen Negative (Neg - 1+)
[2023-12-04 08:21] LABS: Reticulocyte Count 1.1 % (0.4-2.8)
[2023-12-04 09:03] LABS: Amylase 38 U/L (30-110); Creatine Phosphokinase 57 U/L (55-170); LDH 202 U/L (120-246); Lipase 41 U/L (23-300); Magnesium 2.2 mg/dl (1.6-2.3)
[2023-12-04 09:09] LABS: Free T4 1.14 ng/dl (0.78-2.19)
[2023-12-04 09:11] LABS: APTT 29.5 Sec (23.4-35.0); Fibrinogen 305 MG/DL (199-459); INR 0.99; PT 12.9 Sec (11.4-14.6)
[2023-12-04 09:23] LABS: TSH 1.87 uIU/ml (0.47-4.68)
[2023-12-06 12:06] LABS: Total T3 (Sendout) 132 ng/dL (80-200)
[2023-12-06 12:55] LABS: Free T3 4.98 pg/ml (2.77-5.27)
== END ==
LOC: RAD 07:19
PROVIDERS: ATTENDING PHYSICIAN Internal Medicine Hematology & Oncology; FAMILY PHYSICIAN Student in an Organized Health Care Education/Training Program
DX: C25.0 Malignant neoplasm of head of pancreas (principal); C78.7 Secondary malignant neoplasm of liver and intrahepatic bile duct
CPT/HCPCS: 36415; 71260; 74177; 81003; 82150; 82550; 83615; 83690; 83735; 84439; 84443; 84480; 84481; 85045; 85384; 85610; 85730; 93005; Q9967

== ENCOUNTER → 2023-12-06 10:22 | Outpatient (REF) | payer OTHER, SELFPAY ==
[2023-12-06 10:44] VITALS: BP 102/75; BP_SYST 69; BMI 22.5
[2023-12-06] MEDS: ANCEF 10 IV (11:16)
[2023-12-06 12:30] VITALS: BP 128/54
== END ==
LOC: RADI 10:22
PROVIDERS: ATTENDING PHYSICIAN Internal Medicine Hematology & Oncology; FAMILY PHYSICIAN Student in an Organized Health Care Education/Training Program
DX: C25.0 Malignant neoplasm of head of pancreas (principal)
CPT/HCPCS: 36561; 76937; 77001; 99152; 99153; C1788

== ENCOUNTER → 2023-12-10 15:10 | Outpatient (REF) | payer OTHER, SELFPAY | LOC: RCS 15:10 | PROVIDERS: ATTENDING PHYSICIAN Internal Medicine Hematology & Oncology; FAMILY PHYSICIAN Student in an Organized Health Care Education/Training Program | DX: C25.0 Malignant neoplasm of head of pancreas (principal); C78.7 Secondary malignant neoplasm of liver and intrahepatic bile duct | CPT/HCPCS: 93005 ==

== ENCOUNTER → 2023-12-10 15:34 | Outpatient (REF) | payer OTHER, SELFPAY ==
[2023-12-10 15:57] LABS: % Basophils 0.4 % (0-2); % Eosinophils 3.9 % (0-6); % Immature Granulocytes 0.2 % (0-0.5); % Monocytes 11.1 % (1.7-9.3); % Neutrophils 51.4 % (42.2-75.2); Absolute Eosinophils 0.2 10^3/uL (0-0.7); Absolute Lymphocytes 1.7 10^3/uL (1.2-3.4); Absolute Monocytes 0.6 10^3/uL (0.1-0.6); Absolute Neutrophils 2.6 10^3/uL (1.4-6.5); Hematocrit 39.4 % (39.0-52.0); Hemoglobin 13.9 g/dL (13.0-18.0); Mean Corp Hgb Conc. 35.3 g/dL (33.0-37.0); Mean Corpuscular Hgb 33.9 pg (27.0-31.0); Mean Corpuscular Volume 96.1 fL (80.0-94.0); Mean Platelet Volume 10.1 fL (7.4-10.4); Nucleated Red Blood Cells % 0 % (-); Platelet Count 209 10^3/uL (130-400); Red Cell Dist. Width 12.6 % (11.5-14.5); White Blood Cell Count 5.1 10^3/uL (4.8-10.8)
[2023-12-10 15:59] LABS: INR 1.03; PT 13.3 Sec (11.4-14.6)
[2023-12-10 16:00] LABS: APTT 25.6 Sec (23.4-35.0)
[2023-12-10 16:01] LABS: Fibrinogen 316 MG/DL (199-459)
[2023-12-10 16:03] LABS: ALT (SGPT) 48 U/L (0-50); AST (SGOT) 43 U/L (17-59); Albumin 4.3 g/dl (3.5-5.0); Alkaline Phosphatase 161 U/L (38-126); Amylase < 30 U/L (30-110); Blood Urea Nitrogen 13 mg/dl (9-20); Calcium 9.5 mg/dl (8.4-10.2); Carbon Dioxide 23 mmol/L (22-30); Chloride 105 mmol/L (98-107); Creatine Phosphokinase 108 U/L (55-170); Glucose 111 mg/dl (70-99); LDH 206 U/L (120-246); Lipase 32 U/L (23-300); Magnesium 2.2 mg/dl (1.6-2.3); Phosphorus 3.8 mg/dl (2.5-4.5); Potassium 4.3 mmol/L (3.5-5.1); Sodium 140 mmol/L (135-145); Total Protein 6.8 g/dl (6.3-8.2); eGFR > 60.00
[2023-12-10 16:04] LABS: Urine Albumin Trace (Neg - Trace); Urine Bilirubin 1+ (Negative); Urine Character Clear (Clear); Urine Color Yellow; Urine Glucose Negative (Negative); Urine Ketone Trace (Negative); Urine Leukocyte Negative (Negative); Urine Nitrite Negative (Negative); Urine Occult Blood Negative (Negative); Urine Urobilinogen Negative (Neg - 1+)
== END ==
LOC: OIDL 15:34
PROVIDERS: ATTENDING PHYSICIAN Internal Medicine Hematology & Oncology
DX: C25.0 Malignant neoplasm of head of pancreas (principal); C78.7 Secondary malignant neoplasm of liver and intrahepatic bile duct
CPT/HCPCS: 80053; 81003; 82150; 82550; 83615; 83690; 83735; 84100; 85025; 85045; 85384; 85610; 85730

== ENCOUNTER → 2023-12-12 15:47 | Outpatient (REF) | payer OTHER, SELFPAY ==
[2023-12-12 11:52] LABS: Free T4 1.17 ng/dl (0.78-2.19)
[2023-12-12 12:05] LABS: TSH 1.83 uIU/ml (0.47-4.68)
== END ==
LOC: OIDL 15:47
PROVIDERS: ATTENDING PHYSICIAN Internal Medicine Hematology & Oncology
DX: C25.0 Malignant neoplasm of head of pancreas (principal); C78.7 Secondary malignant neoplasm of liver and intrahepatic bile duct
CPT/HCPCS: 84439; 84443

== ENCOUNTER → 2023-12-18 14:36 | Outpatient (REF) | payer OTHER, SELFPAY ==
[2023-12-18 15:06] LABS: % Basophils 0.1 % (0-2); % Eosinophils 2.6 % (0-6); % Immature Granulocytes 1.1 % (0-0.5); % Lymphocytes 11.8 % (20.5-51.1); % Monocytes 7.6 % (1.7-9.3); % Neutrophils 76.8 % (42.2-75.2); Absolute Eosinophils 0.3 10^3/uL (0-0.7); Absolute Immature Granulocytes 0.1 10^3/uL (0-0.05); Absolute Lymphocytes 1.5 10^3/uL (1.2-3.4); Absolute Neutrophils 9.9 10^3/uL (1.4-6.5); Hemoglobin 12.9 g/dL (13.0-18.0); Mean Corp Hgb Conc. 35.8 g/dL (33.0-37.0); Mean Corpuscular Hgb 33.2 pg (27.0-31.0); Mean Corpuscular Volume 92.8 fL (80.0-94.0); Mean Platelet Volume 9.8 fL (7.4-10.4); Platelet Count 117 10^3/uL (130-400); Red Blood Cell Count 3.88 10^6/uL (4.70-6.10); Red Cell Dist. Width 11.8 % (11.5-14.5); White Blood Cell Count 12.8 10^3/uL (4.8-10.8)
[2023-12-18 15:46] LABS: Nucleated Red Blood Cells % 0 % (-); Reticulocyte Count 0.2 % (0.4-2.8)
[2023-12-18 16:16] LABS: ALT (SGPT) 60 U/L (0-50); AST (SGOT) 36 U/L (17-59); Albumin 3.7 g/dl (3.5-5.0); Alkaline Phosphatase 180 U/L (38-126); Blood Urea Nitrogen 21 mg/dl (9-20); Calcium 9.6 mg/dl (8.4-10.2); Carbon Dioxide 23 mmol/L (22-30); Chloride 102 mmol/L (98-107); Glucose 138 mg/dl (70-99); Magnesium 1.9 mg/dl (1.6-2.3); Phosphorus 5.6 mg/dl (2.5-4.5); Sodium 138 mmol/L (135-145); Total Bilirubin 0.8 mg/dl (0.2-1.3); Total Protein 6.2 g/dl (6.3-8.2); eGFR > 60.00
[2023-12-18 16:27] LABS: Amylase < 30 U/L (30-110); Creatine Phosphokinase 42 U/L (55-170); LDH 226 U/L (120-246); Lipase 29 U/L (23-300)
== END ==
LOC: OIDL 14:36
PROVIDERS: ATTENDING PHYSICIAN Internal Medicine Hematology & Oncology
DX: C25.0 Malignant neoplasm of head of pancreas (principal)
CPT/HCPCS: 36415; 80053; 82150; 82550; 83615; 83690; 83735; 84100; 85025; 85045

== ENCOUNTER → 2023-12-19 14:05 | Outpatient (REF) | payer OTHER, SELFPAY ==
[2023-12-19 14:16] LABS: % Basophils 0.1 % (0-2); % Eosinophils 3.4 % (0-6); % Immature Granulocytes 0.6 % (0-0.5); % Lymphocytes 17.1 % (20.5-51.1); % Monocytes 10.1 % (1.7-9.3); % Neutrophils 68.7 % (42.2-75.2); Absolute Eosinophils 0.4 10^3/uL (0-0.7); Absolute Immature Granulocytes 0.1 10^3/uL (0-0.05); Absolute Lymphocytes 1.8 10^3/uL (1.2-3.4); Absolute Monocytes 1.1 10^3/uL (0.1-0.6); Absolute Neutrophils 7.3 10^3/uL (1.4-6.5); Hemoglobin 13.2 g/dL (13.0-18.0); Mean Corp Hgb Conc. 35.7 g/dL (33.0-37.0); Mean Corpuscular Hgb 32.8 pg (27.0-31.0); Platelet Count 115 10^3/uL (130-400); Red Blood Cell Count 4.02 10^6/uL (4.70-6.10); Red Cell Dist. Width 11.9 % (11.5-14.5); White Blood Cell Count 10.6 10^3/uL (4.8-10.8)
[2023-12-19 15:32] LABS: ALT (SGPT) 61 U/L (0-50); AST (SGOT) 38 U/L (17-59); Albumin 3.9 g/dl (3.5-5.0); Alkaline Phosphatase 212 U/L (38-126); Blood Urea Nitrogen 19 mg/dl (9-20); Calcium 9.7 mg/dl (8.4-10.2); Carbon Dioxide 25 mmol/L (22-30); Chloride 100 mmol/L (98-107); Glucose 101 mg/dl (70-99); Phosphorus 5.3 mg/dl (2.5-4.5); Potassium 3.6 mmol/L (3.5-5.1); Sodium 136 mmol/L (135-145); Total Protein 6.4 g/dl (6.3-8.2); eGFR > 60.00
== END ==
LOC: OIDL 14:05
PROVIDERS: ATTENDING PHYSICIAN Internal Medicine Hematology & Oncology
DX: C25.0 Malignant neoplasm of head of pancreas (principal)
CPT/HCPCS: 36415; 80053; 84100; 85025

== ENCOUNTER → 2023-12-24 14:00 | Outpatient (REF) | payer OTHER, SELFPAY ==
[2023-12-24 14:19] LABS: % Basophils 0.2 % (0-2); % Eosinophils 2.5 % (0-6); % Immature Granulocytes 0.7 % (0-0.5); % Monocytes 6.5 % (1.7-9.3); % Neutrophils 67.1 % (42.2-75.2); Absolute Eosinophils 0.2 10^3/uL (0-0.7); Absolute Immature Granulocytes 0.1 10^3/uL (0-0.05); Absolute Monocytes 0.6 10^3/uL (0.1-0.6); Absolute Neutrophils 5.7 10^3/uL (1.4-6.5); Hematocrit 34.4 % (39.0-52.0); Hemoglobin 12.3 g/dL (13.0-18.0); Mean Corp Hgb Conc. 35.8 g/dL (33.0-37.0); Mean Corpuscular Hgb 33.9 pg (27.0-31.0); Mean Corpuscular Volume 94.8 fL (80.0-94.0); Mean Platelet Volume 10.2 fL (7.4-10.4); Nucleated Red Blood Cells % 0 % (-); Platelet Count 152 10^3/uL (130-400); Red Blood Cell Count 3.63 10^6/uL (4.70-6.10); Red Cell Dist. Width 12.7 % (11.5-14.5); Reticulocyte Count 1.5 % (0.4-2.8); White Blood Cell Count 8.5 10^3/uL (4.8-10.8)
[2023-12-24 14:30] LABS: Urine Albumin Negative (Neg - Trace); Urine Bilirubin Negative (Negative); Urine Character Clear (Clear); Urine Color Yellow; Urine Glucose Negative (Negative); Urine Ketone Negative (Negative); Urine Leukocyte Negative (Negative); Urine Nitrite Negative (Negative); Urine Occult Blood Negative (Negative); Urine Specific Gravity 1.025 (<1.030); Urine Urobilinogen Negative (Neg - 1+)
[2023-12-24 14:36] LABS: ALT (SGPT) 54 U/L (0-50); AST (SGOT) 32 U/L (17-59); Albumin 3.5 g/dl (3.5-5.0); Alkaline Phosphatase 206 U/L (38-126); Amylase < 30 U/L (30-110); Blood Urea Nitrogen 15 mg/dl (9-20); Calcium 8.9 mg/dl (8.4-10.2); Carbon Dioxide 22 mmol/L (22-30); Chloride 103 mmol/L (98-107); Creatine Phosphokinase 46 U/L (55-170); Glucose 163 mg/dl (70-99); LDH 197 U/L (120-246); Lipase 22 U/L (23-300); Phosphorus 4.5 mg/dl (2.5-4.5); Potassium 3.5 mmol/L (3.5-5.1); Sodium 138 mmol/L (135-145); Total Bilirubin 0.7 mg/dl (0.2-1.3); Total Protein 5.9 g/dl (6.3-8.2); eGFR > 60.00
== END ==
LOC: OIDL 14:00
PROVIDERS: ATTENDING PHYSICIAN Internal Medicine Hematology & Oncology
DX: C25.0 Malignant neoplasm of head of pancreas (principal)
CPT/HCPCS: 80053; 81003; 82150; 82550; 83615; 83690; 83735; 84100; 85025; 85045

== ENCOUNTER 2024-01-04 16:39 | Emergency (ER) | payer OTHER, SELFPAY ==
[2024-01-04 16:45] VITALS: BP 99/78
[2024-01-04 17:18] LABS: ALT (SGPT) 52 U/L (0-50); AST (SGOT) 35 U/L (17-59); Albumin 3.7 g/dl (3.5-5.0); Alkaline Phosphatase 262 U/L (38-126); Blood Urea Nitrogen 17 mg/dl (9-20); Calcium 9.1 mg/dl (8.4-10.2); Carbon Dioxide 23 mmol/L (22-30); Chloride 99 mmol/L (98-107); Glucose 116 mg/dl (70-99); Potassium 4.5 mmol/L (3.5-5.1); Sodium 133 mmol/L (135-145); Total Bilirubin 0.5 mg/dl (0.2-1.3); Total Protein 6.3 g/dl (6.3-8.2); eGFR > 60.00
[2024-01-04 17:22] LABS: Hematocrit 36.5 % (39.0-52.0); Hemoglobin 13.1 g/dL (13.0-18.0); Mean Corp Hgb Conc. 35.9 g/dL (33.0-37.0); Mean Corpuscular Hgb 32.8 pg (27.0-31.0); Mean Corpuscular Volume 91.5 fL (80.0-94.0); Platelet Count 173 10^3/uL (130-400); Red Blood Cell Count 3.99 10^6/uL (4.70-6.10); Red Cell Dist. Width 12.5 % (11.5-14.5); White Blood Cell Count 12.5 10^3/uL (4.8-10.8)
[2024-01-04 17:29] LABS: Troponin I < 0.012 ng/ml
[2024-01-04 19:04] LABS: % Basophils 0.3 % (0-2); % Eosinophils 0.6 % (0-6); % Immature Granulocytes 1.5 % (0-0.5); % Lymphocytes 15.3 % (20.5-51.1); % Monocytes 10.7 % (1.7-9.3); % Neutrophils 71.6 % (42.2-75.2); Absolute Eosinophils 0.1 10^3/uL (0-0.7); Absolute Immature Granulocytes 0.2 10^3/uL (0-0.05); Absolute Lymphocytes 1.9 10^3/uL (1.2-3.4); Absolute Monocytes 1.3 10^3/uL (0.1-0.6); Nucleated Red Blood Cells % 0 % (-)
[2024-01-04 19:19] VITALS: BP 114/65
[2024-01-04 19:25] VITALS: BMI 20.2
--- NOTE | 2024-01-04 19:28 | EDRN ---
Pt says he has been dizzy today and he passed out three times. Pt says he went from sitting to standing and passed out three times. Pt denies injury. Pt had LOC for few seconds first time it was observed. Other two times unknown how long pt had
LOC. Pt says when he is sitting or lying down he feels fine. 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 Pt says his appetite is good and he has been drinking fluids. Pt has
slight lower abd pain that he says he usually gets prior to BM. Pt denies cp, sob, n/v, fever/chills/cough, urinary symptoms. Pt has diarrhea from chemo drug he is taking for which he takes imodium every 6 hours. Pt adds his hair is falling out.
[2024-01-04 19:38] VITALS: BP 94/61
--- NOTE | 2024-01-04 19:40 | ED.GENMED ---
History of Present Illness
General
Chief Complaint: Dizziness
Time Seen by Provider: 01/04/24 19:20
History of Present Illness
History of Present Illness:
68-year-old male with history of metastatic pancreatic cancer currently undergoing trial chemo/immunotherapy presents to the emergency department for evaluation of multiple syncopal events today. States that he feels dizzy whenever he rises from a
sitting position. All 4 syncopal events occurred during position changes. No history of vasovagal or orthostatic syncope. Denies any chest pain or palpitations. No associated shortness of breath associated with the syncope. Feels well while
sitting still in bed. Does report chronic diarrhea secondary to his chemotherapy.
Review of Systems
Review of Systems
Allergies reviewed?: Yes
All Other Systems: ROS reviewed and negative except as documented in HPI and ROS
Phy Exam
Physical Exam
Physical Exam:
GEN: Well appearing, NAD, WDWN, thin and cachectic appearing
HEENT: Oral mucosa moist, no scleral icterus
Cardiac: Regular rate and rhythm, no murmurs
Lung: No respiratory distress, no tachypnea, lungs clear to auscultation bilaterally
MSK: No gross deformity or injuries
Skin: Good color, no pallor or jaundice, no rashes
Neuro: AO x3, moves all extremities freely
Psych: Calm, cooperative
Course
Orders/Labs/Results
Orders:
Orders
01/04/24 16:40
EKG [Electrocardiogram (*1)] Urgent
Reason for Study: Syncope
EKG- Treatment ONCE
01/04/24 16:52
Complete Blood Count/With Diff Urgent
Comprehensive Metabolic Panel Urgent
Troponin I Urgent
01/04/24 18:59
Add On- LAB Urgent
Tests Added?: add on diff to CBC
01/04/24 19:40
0.9% Sodium Chloride 1000 ml [Nss] 1,000 ml IV BOLUS
Abnormal Lab Results
01/04/24
16:52
WBC 12.5 H 10^3/uL
(4.8-10.8)
RBC 3.99 L 10^6/uL
(4.70-6.10)
Hct 36.5 L %
(39.0-52.0)
MCH 32.8 H pg
(27.0-31.0)
Abs Immat Gran (auto) 0.2 H 10^3/uL
(0-0.05)
Absolute Neuts (auto) 9.0 H 10^3/uL
(1.4-6.5)
Absolute Monos (auto) 1.3 H 10^3/uL
(0.1-0.6)
Immature Gran % 1.5 H %
(0-0.5)
Lymphocytes % 15.3 L %
(20.5-51.1)
Monocytes % 10.7 H %
(1.7-9.3)
Sodium 133 L mmol/L
(135-145)
Glucose 116 H mg/dl
(70-99)
ALT 52 H U/L
(0-50)
Alkaline Phosphatase 262 H U/L
(38-126)
01/04/24 16:52
01/04/24 16:52
Vital Signs
Initial and Last Documented VS:
Initial Vital Signs
Temp Pulse Resp BP Pulse Ox
98 F 69 16 99/78 98
01/04/24 16:45 01/04/24 16:45 01/04/24 16:45 01/04/24 16:45 01/04/24 16:45
Last Documented Vital Signs
Temp Pulse Resp BP Pulse Ox
98 F 65 14 103/63 98
01/04/24 16:45 01/04/24 20:25 01/04/24 20:32 01/04/24 20:32 01/04/24 16:45
MDM/Problems Addressed
MDM/Problems Addressed:
Patient initially very orthostatic however improved with IV fluids. Likely vasovagal syncope/orthostatic syncope on the basis of dehydration due to diarrhea from chemotherapy. Stable at time of discharge
Comment
Comment:
EKG independently interpreted by me is limited due to patient motion artifact however normal sinus rhythm at a rate of [address] changes concerning for ischemia
*Critical Care Note
Total Time (30-74mins, 75-104mins- exclusive of procedures): Not Applicable
ED Attending Note
-
Portions of this chart may have been created with voice recognition software.� Occasional wrong word or��sound alike� substitutions may have occurred due to the inherent limitations of voice recognition software.
Discharge Plan
Departure
Patient Disposition: Home (Routine Discharge)
Date of Disposition: 01/04/24
Time of Disposition: 20:51
Patient with high blood pressure during this ER visit?: No
Discharge Problem:
Orthostatic hypotension, Syncope, vasovagal
Instructions: Orthostatic hypotension
Prescriptions:
No Action
sildenafil 25 mg Tablet
25 mg PO DAILYPRN PRN (Reason: ED)
Sleep Aid (doxylamine) 25 mg Tablet
25 mg PO HSPRN PRN (Reason: sleep)
tamsulosin 0.4 mg Capsule
0.4 mg PO DAILY Qty: 30 0RF
loperamide [Imodium] 2 mg Capsule
4 mg PO Q6
Chemo Trial Drug
5 tab PO DAILY
Patient Comments:
pt does not remember name of drug
Interventions
Interventions:
*Risk Screen - Suicide Last Done: 01/04/24 16:47
*General Assessment Last Done: 01/04/24 19:25
*Neglect/Abuse Screening Last Done: 01/04/24 16:47
ED- Fall Risk Assessment Last Done: 01/04/24 19:47
*ED COVID-19 Vaccine History Last Done: 01/04/24 19:25
*Nursing Disposition Last Done: 01/04/24 21:00
ED- Neurological Assessment Last Done: 01/04/24 19:35
ED- Cardiac Assessment Last Done: 01/04/24 19:35
Discharge Date and Time
Print Language: MACEDONIAN
[2024-01-04] MEDS: NSS 1000 IV (19:44)
[2024-01-04 20:32] VITALS: BP 103/63
== END 2024-01-04 21:00 | disposition home or self-care (01) ==
LOC: EMR 16:39
PROVIDERS: Student in an Organized Health Care Education/Training Program; EMERGENCY PHYSICIAN Emergency Medicine
DX: I95.1 Orthostatic hypotension (principal); R42 Dizziness and giddiness; C78.89 Secondary malignant neoplasm of other digestive organs
CPT/HCPCS: 99283; 96360; 80053; 84484; 85025; 93005

== ENCOUNTER → 2024-01-07 15:19 | Outpatient (REF) | payer OTHER, SELFPAY ==
[2024-01-07 16:09] LABS: % Basophils 0.4 % (0-2); % Eosinophils 0.3 % (0-6); % Immature Granulocytes 1.2 % (0-0.5); % Lymphocytes 12.2 % (20.5-51.1); % Monocytes 6.8 % (1.7-9.3); % Neutrophils 79.1 % (42.2-75.2); Absolute Basophils 0.1 10^3/uL (0-0.2); Absolute Eosinophils 0.1 10^3/uL (0-0.7); Absolute Immature Granulocytes 0.2 10^3/uL (0-0.05); Absolute Monocytes 1.1 10^3/uL (0.1-0.6); Absolute Neutrophils 12.7 10^3/uL (1.4-6.5); Hematocrit 35.7 % (39.0-52.0); Mean Corp Hgb Conc. 36.4 g/dL (33.0-37.0); Mean Corpuscular Hgb 34.7 pg (27.0-31.0); Mean Corpuscular Volume 95.2 fL (80.0-94.0); Mean Platelet Volume 10.5 fL (7.4-10.4); Nucleated Red Blood Cells % 0 % (-); Platelet Count 217 10^3/uL (130-400); Red Blood Cell Count 3.75 10^6/uL (4.70-6.10); Red Cell Dist. Width 13.3 % (11.5-14.5); Reticulocyte Count 2.1 % (0.4-2.8); White Blood Cell Count 16.1 10^3/uL (4.8-10.8)
[2024-01-07 16:23] LABS: Urine Albumin Negative (Neg - Trace); Urine Bilirubin Negative (Negative); Urine Character Clear (Clear); Urine Color Yellow; Urine Glucose Negative (Negative); Urine Ketone Negative (Negative); Urine Leukocyte Negative (Negative); Urine Nitrite Negative (Negative); Urine Occult Blood Negative (Negative); Urine Specific Gravity 1.025 (<1.030); Urine Urobilinogen Negative (Neg - 1+)
[2024-01-07 16:31] LABS: ALT (SGPT) 53 U/L (0-50); AST (SGOT) 38 U/L (17-59); Albumin 3.3 g/dl (3.5-5.0); Alkaline Phosphatase 266 U/L (38-126); Blood Urea Nitrogen 16 mg/dl (9-20); Calcium 8.8 mg/dl (8.4-10.2); Carbon Dioxide 22 mmol/L (22-30); Chloride 100 mmol/L (98-107); Glucose 103 mg/dl (70-99); Magnesium 2.1 mg/dl (1.6-2.3); Phosphorus 5.8 mg/dl (2.5-4.5); Potassium 3.9 mmol/L (3.5-5.1); Sodium 134 mmol/L (135-145); Total Bilirubin 0.5 mg/dl (0.2-1.3); Total Protein 5.8 g/dl (6.3-8.2); eGFR > 60.00
[2024-01-07 17:16] LABS: Amylase < 30 U/L (30-110); Creatine Phosphokinase 42 U/L (55-170); LDH 214 U/L (120-246); Lipase 30 U/L (23-300)
== END ==
LOC: OIDL 15:19
PROVIDERS: ATTENDING PHYSICIAN Internal Medicine Hematology & Oncology
DX: C25.0 Malignant neoplasm of head of pancreas (principal); C78.7 Secondary malignant neoplasm of liver and intrahepatic bile duct
CPT/HCPCS: 80053; 81003; 82150; 82550; 83615; 83690; 83735; 84100; 85025; 85045

== ENCOUNTER → 2024-01-18 15:00 | Outpatient (REF) | payer OTHER, SELFPAY | LOC: OIDL 15:00 | PROVIDERS: ATTENDING PHYSICIAN Internal Medicine Hematology & Oncology | DX: C25.0 Malignant neoplasm of head of pancreas (principal); C78.7 Secondary malignant neoplasm of liver and intrahepatic bile duct | CPT/HCPCS: 80053; 83735; 85025 ==

== ENCOUNTER → 2024-01-21 10:35 | Outpatient (REF) | payer OTHER, SELFPAY | LOC: RAD 10:35 | PROVIDERS: ATTENDING PHYSICIAN Internal Medicine Hematology & Oncology; FAMILY PHYSICIAN Student in an Organized Health Care Education/Training Program | DX: C25.0 Malignant neoplasm of head of pancreas (principal); C78.7 Secondary malignant neoplasm of liver and intrahepatic bile duct | CPT/HCPCS: 71260; 74177; 93005; Q9967 ==

== ENCOUNTER → 2024-01-21 16:36 | Outpatient (REF) | payer OTHER, SELFPAY ==
[2024-01-21 17:40] LABS: ALT (SGPT) 84 U/L (0-50); AST (SGOT) 51 U/L (17-59); Alkaline Phosphatase 260 U/L (38-126); Amylase < 30 U/L (30-110); Blood Urea Nitrogen 23 mg/dl (9-20); Calcium 8.5 mg/dl (8.4-10.2); Carbon Dioxide 18 mmol/L (22-30); Chloride 98 mmol/L (98-107); Creatine Phosphokinase 62 U/L (55-170); Glucose 107 mg/dl (70-99); LDH 349 U/L (120-246); Lipase 38 U/L (23-300); Magnesium 1.8 mg/dl (1.6-2.3); Phosphorus 6.4 mg/dl (2.5-4.5); Potassium 3.6 mmol/L (3.5-5.1); Sodium 131 mmol/L (135-145); Total Bilirubin 0.7 mg/dl (0.2-1.3); Total Protein 5.6 g/dl (6.3-8.2); Urine Albumin Trace (Neg - Trace); Urine Bilirubin 1+ (Negative); Urine Character Clear (Clear); Urine Color Yellow; Urine Glucose Negative (Negative); Urine Ketone Negative (Negative); Urine Leukocyte Negative (Negative); Urine Nitrite Negative (Negative); Urine Occult Blood Negative (Negative); Urine Urobilinogen Negative (Neg - 1+); eGFR > 60.00
[2024-01-21 17:56] LABS: Free T3 2.41 pg/ml (2.77-5.27); Free T4 0.94 ng/dl (0.78-2.19)
[2024-01-21 18:10] LABS: TSH 2.81 uIU/ml (0.47-4.68)
[2024-01-21 18:12] LABS: Hematocrit 38.8 % (39.0-52.0); Hemoglobin 13.4 g/dL (13.0-18.0); Mean Corp Hgb Conc. 34.5 g/dL (33.0-37.0); Mean Corpuscular Hgb 33.6 pg (27.0-31.0); Mean Corpuscular Volume 97.2 fL (80.0-94.0); Mean Platelet Volume 10.9 fL (7.4-10.4); Platelet Count 177 10^3/uL (130-400); Red Blood Cell Count 3.99 10^6/uL (4.70-6.10); White Blood Cell Count 9.5 10^3/uL (4.8-10.8)
[2024-01-21 18:58] LABS: % Basophils 0.7 % (0-2); % Immature Granulocytes 1.7 % (0-0.5); % Lymphocytes 8.9 % (20.5-51.1); % Monocytes 6.5 % (1.7-9.3); % Neutrophils 82.2 % (42.2-75.2); Absolute Basophils 0.1 10^3/uL (0-0.2); Absolute Immature Granulocytes 0.2 10^3/uL (0-0.05); Absolute Lymphocytes 0.8 10^3/uL (1.2-3.4); Absolute Monocytes 0.6 10^3/uL (0.1-0.6); Absolute Neutrophils 7.8 10^3/uL (1.4-6.5); Nucleated Red Blood Cells % 0 % (-)
[2024-01-21 19:06] LABS: Reticulocyte Count 3.3 % (0.4-2.8)
== END ==
LOC: CLAB 16:36
PROVIDERS: ATTENDING PHYSICIAN Internal Medicine Hematology & Oncology
DX: C25.0 Malignant neoplasm of head of pancreas (principal); C78.7 Secondary malignant neoplasm of liver and intrahepatic bile duct
CPT/HCPCS: 80053; 81003; 82150; 82550; 83615; 83690; 83735; 84100; 84439; 84443; 84481; 85025; 85045

== ENCOUNTER → 2024-02-22 11:25 | Outpatient (REF) | payer OTHER, SELFPAY ==
[2024-02-22 11:39] LABS: % Eosinophils 0.2 % (0-6); % Immature Granulocytes 0.2 % (0-0.5); % Neutrophils 88.6 % (42.2-75.2); Absolute Lymphocytes 0.5 10^3/uL (1.2-3.4); Absolute Monocytes 0.1 10^3/uL (0.1-0.6); Absolute Neutrophils 4.4 10^3/uL (1.4-6.5); Hematocrit 35.6 % (39.0-52.0); Hemoglobin 11.8 g/dL (13.0-18.0); Mean Corp Hgb Conc. 33.1 g/dL (33.0-37.0); Mean Corpuscular Hgb 33.2 pg (27.0-31.0); Mean Corpuscular Volume 100.3 fL (80.0-94.0); Mean Platelet Volume 9.2 fL (7.4-10.4); Platelet Count 145 10^3/uL (130-400); Red Blood Cell Count 3.55 10^6/uL (4.70-6.10); Red Cell Dist. Width 14.2 % (11.5-14.5)
[2024-02-22 13:02] LABS: ALT (SGPT) 85 U/L (0-50); AST (SGOT) 72 U/L (17-59); Albumin 3.2 g/dl (3.5-5.0); Alkaline Phosphatase 162 U/L (38-126); Blood Urea Nitrogen 9 mg/dl (9-20); Calcium 8.2 mg/dl (8.4-10.2); Carbon Dioxide 25 mmol/L (22-30); Chloride 103 mmol/L (98-107); Glucose 188 mg/dl (70-99); Sodium 137 mmol/L (135-145); Total Bilirubin 0.9 mg/dl (0.2-1.3); Total Protein 5.8 g/dl (6.3-8.2); eGFR > 60.00
[2024-02-22 13:34] LABS: Hepatitis B Surface Antigen Negative (Negative)
[2024-02-22 13:52] LABS: Hepatitis B Core Ab, Total Negative (Negative); Hepatitis B Surface Antibody Negative
== END ==
LOC: OIDL 11:25
PROVIDERS: ATTENDING PHYSICIAN Internal Medicine Hematology & Oncology; FAMILY PHYSICIAN Student in an Organized Health Care Education/Training Program
DX: C25.0 Malignant neoplasm of head of pancreas (principal)
CPT/HCPCS: 80053; 85025; 86704; 86706; 87340

== ENCOUNTER → 2024-03-11 10:04 | Outpatient (REF) | payer OTHER, SELFPAY ==
[2024-03-11 10:19] LABS: % Basophils 0.1 % (0-2); % Eosinophils 0.1 % (0-6); % Immature Granulocytes 0.1 % (0-0.5); % Monocytes 4.4 % (1.7-9.3); % Neutrophils 90.3 % (42.2-75.2); Absolute Lymphocytes 0.4 10^3/uL (1.2-3.4); Absolute Monocytes 0.4 10^3/uL (0.1-0.6); Absolute Neutrophils 7.2 10^3/uL (1.4-6.5); Hematocrit 34.3 % (39.0-52.0); Hemoglobin 11.3 g/dL (13.0-18.0); Mean Corp Hgb Conc. 32.9 g/dL (33.0-37.0); Mean Corpuscular Hgb 32.8 pg (27.0-31.0); Mean Corpuscular Volume 99.7 fL (80.0-94.0); Mean Platelet Volume 8.9 fL (7.4-10.4); Platelet Count 168 10^3/uL (130-400); Red Blood Cell Count 3.44 10^6/uL (4.70-6.10); Red Cell Dist. Width 13.5 % (11.5-14.5); White Blood Cell Count 7.9 10^3/uL (4.8-10.8)
[2024-03-11 12:19] LABS: ALT (SGPT) 42 U/L (0-50); AST (SGOT) 41 U/L (17-59); Albumin 3.8 g/dl (3.5-5.0); Alkaline Phosphatase 154 U/L (38-126); Blood Urea Nitrogen 13 mg/dl (9-20); Calcium 8.4 mg/dl (8.4-10.2); Carbon Dioxide 19 mmol/L (22-30); Chloride 101 mmol/L (98-107); Glucose 170 mg/dl (70-99); Magnesium 2.3 mg/dl (1.6-2.3); Potassium 4.7 mmol/L (3.5-5.1); Sodium 131 mmol/L (135-145); Total Bilirubin 0.9 mg/dl (0.2-1.3); Total Protein 6.8 g/dl (6.3-8.2); eGFR > 60.00
[2024-03-13 21:28] LABS: CA 19-9 3287 U/mL (<=35)
== END ==
LOC: OIDL 10:04
PROVIDERS: ATTENDING PHYSICIAN Internal Medicine Hematology & Oncology
DX: C25.0 Malignant neoplasm of head of pancreas (principal)
CPT/HCPCS: 36415; 80053; 83735; 85025; 86301

== ENCOUNTER → 2024-03-24 10:38 | Outpatient (REF) | payer OTHER, SELFPAY ==
[2024-03-24 11:08] LABS: % Basophils 0.2 % (0-2); % Eosinophils 0.2 % (0-6); % Immature Granulocytes 0.1 % (0-0.5); % Lymphocytes 6.6 % (20.5-51.1); % Monocytes 6.2 % (1.7-9.3); % Neutrophils 86.7 % (42.2-75.2); Absolute Lymphocytes 0.6 10^3/uL (1.2-3.4); Absolute Monocytes 0.5 10^3/uL (0.1-0.6); Absolute Neutrophils 7.2 10^3/uL (1.4-6.5); Hematocrit 33.5 % (39.0-52.0); Hemoglobin 11.2 g/dL (13.0-18.0); Mean Corp Hgb Conc. 33.4 g/dL (33.0-37.0); Mean Corpuscular Hgb 32.9 pg (27.0-31.0); Mean Corpuscular Volume 98.5 fL (80.0-94.0); Mean Platelet Volume 9.9 fL (7.4-10.4); Platelet Count 150 10^3/uL (130-400); Red Cell Dist. Width 13.1 % (11.5-14.5); White Blood Cell Count 8.3 10^3/uL (4.8-10.8)
[2024-03-24 12:46] LABS: ALT (SGPT) 33 U/L (0-50); AST (SGOT) 35 U/L (17-59); Albumin 3.1 g/dl (3.5-5.0); Alkaline Phosphatase 164 U/L (38-126); Blood Urea Nitrogen 17 mg/dl (9-20); Calcium 8.7 mg/dl (8.4-10.2); Carbon Dioxide 18 mmol/L (22-30); Chloride 101 mmol/L (98-107); Glucose 143 mg/dl (70-99); Magnesium 2.2 mg/dl (1.6-2.3); Phosphorus 2.3 mg/dl (2.5-4.5); Potassium 4.5 mmol/L (3.5-5.1); Sodium 132 mmol/L (135-145); Total Bilirubin 1.3 mg/dl (0.2-1.3); eGFR > 60.00
== END ==
LOC: OIDL 10:38
PROVIDERS: ATTENDING PHYSICIAN Internal Medicine Hematology & Oncology; FAMILY PHYSICIAN Student in an Organized Health Care Education/Training Program
DX: C25.0 Malignant neoplasm of head of pancreas (principal)
CPT/HCPCS: 36415; 80053; 83735; 84100; 85025

== ENCOUNTER → 2024-04-01 15:00 | Outpatient (REF) | payer OTHER, SELFPAY ==
[2024-04-01 14:54] LABS: % Basophils 0.1 % (0-2); % Immature Granulocytes 0.4 % (0-0.5); % Lymphocytes 10.1 % (20.5-51.1); % Monocytes 5.9 % (1.7-9.3); % Neutrophils 83.5 % (42.2-75.2); Absolute Lymphocytes 0.9 10^3/uL (1.2-3.4); Absolute Monocytes 0.5 10^3/uL (0.1-0.6); Absolute Neutrophils 7.1 10^3/uL (1.4-6.5); Hematocrit 33.8 % (39.0-52.0); Hemoglobin 11.2 g/dL (13.0-18.0); Mean Corp Hgb Conc. 33.1 g/dL (33.0-37.0); Mean Corpuscular Hgb 32.3 pg (27.0-31.0); Mean Corpuscular Volume 97.4 fL (80.0-94.0); Mean Platelet Volume 9.1 fL (7.4-10.4); Platelet Count 282 10^3/uL (130-400); Red Blood Cell Count 3.47 10^6/uL (4.70-6.10); Red Cell Dist. Width 12.9 % (11.5-14.5); White Blood Cell Count 8.5 10^3/uL (4.8-10.8)
[2024-04-01 16:01] LABS: ALT (SGPT) 38 U/L (0-50); AST (SGOT) 37 U/L (17-59); Alkaline Phosphatase 250 U/L (38-126); Blood Urea Nitrogen 20 mg/dl (9-20); Calcium 8.6 mg/dl (8.4-10.2); Carbon Dioxide 26 mmol/L (22-30); Chloride 95 mmol/L (98-107); Glucose 260 mg/dl (70-99); Potassium 4.6 mmol/L (3.5-5.1); Sodium 130 mmol/L (135-145); Total Bilirubin 1.1 mg/dl (0.2-1.3); eGFR > 60.00
[2024-04-01 16:09] LABS: Albumin 3.1 g/dl (3.5-5.0)
== END ==
LOC: OIDL 15:00
PROVIDERS: ATTENDING PHYSICIAN Internal Medicine Hematology & Oncology; FAMILY PHYSICIAN Student in an Organized Health Care Education/Training Program
DX: C25.0 Malignant neoplasm of head of pancreas (principal); C78.7 Secondary malignant neoplasm of liver and intrahepatic bile duct; Z92.26 Personal history of immune checkpoint inhibitor therapy; T45.AX5 Adverse effect of immune checkpoint inhibitors and immunostimulant drugs; R19.7 Diarrhea, unspecified; K52.1 Toxic gastroenteritis and colitis
CPT/HCPCS: 36415; 80053; 85025

== ENCOUNTER → 2024-04-03 14:45 | Outpatient (REF) | payer OTHER, SELFPAY | LOC: RAD 14:45 | PROVIDERS: ATTENDING PHYSICIAN Internal Medicine Hematology & Oncology; FAMILY PHYSICIAN Student in an Organized Health Care Education/Training Program | DX: C25.0 Malignant neoplasm of head of pancreas (principal); C78.7 Secondary malignant neoplasm of liver and intrahepatic bile duct; Z92.26 Personal history of immune checkpoint inhibitor therapy; T45.AX5 Adverse effect of immune checkpoint inhibitors and immunostimulant drugs; K52.1 Toxic gastroenteritis and colitis | CPT/HCPCS: 71260; 74177; Q9967 ==

== ENCOUNTER 2024-04-09 04:20 | Inpatient (IN) | payer OTHER, SELFPAY ==
[2024-04-09] VITALS (21 sets, daily range): BP systolic 75–108; BP diastolic 52–74; BMI 21.2; BMI 21.6
[2024-04-09 01:56] LABS: % Basophils 0.3 % (0-2); % Eosinophils 0.8 % (0-6); % Immature Granulocytes 0.6 % (0-0.5); % Lymphocytes 6.8 % (20.5-51.1); % Monocytes 2.5 % (1.7-9.3); Absolute Basophils 0.1 10^3/uL (0-0.2); Absolute Eosinophils 0.2 10^3/uL (0-0.7); Absolute Immature Granulocytes 0.1 10^3/uL (0-0.05); Absolute Lymphocytes 1.3 10^3/uL (1.2-3.4); Absolute Monocytes 0.5 10^3/uL (0.1-0.6); Absolute Neutrophils 16.7 10^3/uL (1.4-6.5); Hematocrit 39.4 % (39.0-52.0); Hemoglobin 13.3 g/dL (13.0-18.0); Mean Corp Hgb Conc. 33.8 g/dL (33.0-37.0); Mean Corpuscular Hgb 31.4 pg (27.0-31.0); Mean Corpuscular Volume 92.9 fL (80.0-94.0); Mean Platelet Volume 9.4 fL (7.4-10.4); Nucleated Red Blood Cells % 0 % (-); Platelet Count 329 10^3/uL (130-400); Red Blood Cell Count 4.24 10^6/uL (4.70-6.10); Red Cell Dist. Width 13.5 % (11.5-14.5); White Blood Cell Count 18.8 10^3/uL (4.8-10.8)
--- NOTE | 2024-04-09 01:59 | ED.GENMED ---
History of Present Illness
General
Chief Complaint: Vomiting Blood
Source: patient and spouse
Exam Limitations: none
Time Seen by Provider: 04/09/24 01:49
Nursing documentation reviewed up to this point in time: agreed with
History of Present Illness
History of Present Illness:
69-year-old male currently being treated for pancreatic cancer with Dr. Hammer at [facility], history of chronic diarrhea since starting chemotherapy last December then had to stop due to severe diarrhea. 3 weeks ago started again with
chemo but again had severe diarrhea. Had CT abdomen/pelvis on 04/03 d/t diarrhea and found bilateral PEs and started on Eliquis, increase in pancreatic mass w increase in metastatic disease. Also new large volume ascites. Pt denies fever. Does feel
nauseous, abdominal pain worsened at midnight and vomited couple teaspoons amount of black emesis which relieved that pain some.
States pain is 6/10.
Past History
Past History
ED Past Medical History: Cancer (Pancreatic with metastasis), Other (Multiple PEs) and Other (chronic diarrhea)
Social History
Alcohol: None
Personal:
Living: with family
Review of Systems
Review of Systems
Allergies reviewed?: Yes
All Other Systems: ROS reviewed and negative except as documented in HPI and ROS
Constitutional: Reports fatigue; Denies fever
EENT: Denies sore throat
Respiratory: Denies trouble breathing
Cardiac: Denies chest pain
ABD/GI: Reports abdominal pain, nausea, vomiting, diarrhea and anorexia
: Denies dysuria, frequency or difficulty voiding
Musculoskeletal: Reports no symptoms
Skin: Reports other (Access port R upper chest wall )
Neurological: Reports no symptoms
Phy Exam
Physical Exam
Physical Exam:
GENERAL: No acute distress. A&Ox3.
CONSTITUTIONAL: Afebrile.
EYES: clear, conjunctivae normal
ENMT: moist mucus membranes, Pharynx nl
RESPIRATORY: Regular respirations, nonlabored, lungs clear.
CARDIOVASCULAR: Regular rate and rhythm, no murmurs, no rubs.
GI: Distended, tender, hypoactive BS
MUSCULOSKELETAL: Moves with ease. Well perfused. No edema
SKIN: Warm, dry, pale, mildly jaundiced. Access port R upper chest wall
PSYCH: Normal mood and affect. Well kept, interactive and appropriate
NEUROLOGIC: Awake, alert and oriented. No focal neurological deficits
Course
Orders/Labs/Results
Orders:
Orders
04/09/24 01:40
EKG [Electrocardiogram (*1)] Urgent
Reason for Study: Chest Pain
04/09/24 01:44
Type+Screen Urgent
Complete Blood Count/With Diff Urgent
Comprehensive Metabolic Panel Urgent
Lactate Level [Lactic Acid] Urgent
PTT Urgent
Prothrombin Time Urgent
04/09/24 01:58
0.9% Sodium Chloride 1000 ml [Nss] 1,000 ml IV BOLUS
Morphine Sulfate 2 mg IV NOW STA
Ondansetron Injectable [Zofran] 4 mg IV NOW STA
04/09/24 02:12
ABO2 Urgent
[employer] Wristband Number:
Associate notified that ABO2 has been ordered: [id number]
Date: 04/09/24
Time: 02:09
Vehicle Monitor Technician ID: [id number]
04/09/24 03:34
Prochlorperazine [Compazine] 10 mg .ROUTE .STK-MED ONE
04/09/24 03:39
CT Abd/pelvis W Iv Cont Stat
Comment:
Reason For Exam: ab.pain, eval obs, panc ca, tari obs and ascites
HYDROmorphone [Dilaudid] 0.5 mg IV NOW STA
04/09/24 03:44
Prochlorperazine [Compazine] 10 mg IV NOW STA
04/09/24 03:58
Admit/Transfer Patient As Directed
Co-Sign Provider:
Level of Care: Inpatient admission
Assign to:: Medical/Surgical
Physician / Group: hospitalist
Diagnosis: abdominal pain
Reason for Hospitalization: abdominal pain.
Expected length of stay greater than two midnights?: Yes
ELOS- Estimated Length of Stay in days: 2
I certify the patient meets the requirements for IP care: Yes
Cefepime HCl [Maxipime] 2,000 mg IV NOW STA
MetroNIDAZOLE 500 MG/100 ML [Flagyl 500 mg] 100 ml IV NOW
PRN Pain Medication Management As Directed
May give lesser potent ordered pain med per pt: Yes
preference::
Protocol:: Medication orders for pain may be administered in a
manner that supports deferring to patient preference
when the pt is:
- Requesting an ordered lesser potent pain medication.
Least to most potent pain medications are defined
as: acetaminophen < NSAID < tramadol < opioids
(morphine, oxycodone, hydromorphone).
- Requesting a lesser dose of the same medication IF
ORDERED.
- Requesting a less intrusive route of administration
if both routes are prescribed by the provider (PO <
IV).
04/09/24 04:00
Flush (0.9% Sodium Chloride) [Flush (Nss)] See Dose Instructions IV PER PROTOCOL
04/09/24 04:01
Code Status As Directed
Resuscitation Status: Full Code
04/09/24 Breakfast
NPO
Allow oral meds: Yes
Allow clear liquids: Sips of Clears
NPO with Ice Chips: Yes
04/09/24 06:46
Acetaminophen [Tylenol] 650 mg PO Q4HPRN PRN
HYDROmorphone [Dilaudid] 0.5 mg IV Q4HPRN PRN
Lactated Ringers [Lr] 1,000 ml IV 125 mls/hr
Ondansetron Injectable [Zofran] 4 mg IV Q6HPRN PRN
Oxycodone [Roxicodone] 5 mg PO Q4HPRN PRN
04/09/24 06:46
Consult Notification Routine
Specialty to Notify: Gastroenterology
Date consulting provider notified: 04/09/24
Time consulting provider notified: 18:19
Notified:: Provider
Comment: MICHAEL BETH
Consult Notification Routine
Specialty to Notify: IRAD (Interventional Radiology)
Date consulting provider notified: 04/09/24
Time consulting provider notified: 18:18
Notified:: Provider
Comment: MACKENZIE ALMEIDA
GASTROINTESTINAL CONSULT Routine
Consulting Provider: Michael Beth
Was physician already notified: No
Reason for consult: panc ca, ascites, rising bili
IRAD CONSULT Routine
Consulting Provider: Mackenzie Almeida
Was physician already notified: No
Reason for Consult/Procedure: dgx and therapeutic paracentesis
Acknowledgement that appropriate orders are entered: Yes
Activity As Directed
Activity Level: With Assistance
Pneumatic Compression Sleeves As Directed
Type: Knee high
Vital Signs As Directed
Frequency: Per unit guidelines
DX Deep Vein Thrombosis Video Routine
04/09/24 08:00
Apixaban [Eliquis] 5 mg PO BID
Pantoprazole [Protonix IV] 40 mg IV DAILY
04/09/24 11:53
Body Fluid Albumin Routine
Fluid Source: Peritoneal (Ascites)
Date Specimen was Collected: 04/09/24
Time Specimen was Collected: 11:49
Body Fluid Amylase Routine
Fluid Source: Peritoneal (Ascites)
Date Specimen was Collected: 04/09/24
Time Specimen was Collected: 11:49
Body Fluid Cell Count Routine
What is the Body Fluid: peritoneal fluid
Date Specimen was Collected: 04/09/24
Time Specimen was Collected: 11:49
Comment: post procedure
Body Fluid LDH Routine
Fluid Source: Peritoneal (Ascites)
Date Specimen was Collected: 04/09/24
Time Specimen was Collected: 11:49
Body Fluid Protein Routine
Fluid Source: Peritoneal (Ascites)
Date Specimen was Collected: 04/09/24
Time Specimen was Collected: 11:49
Fluid Culture with Gram Stain Routine
NICKO Source: Peritoneal Fluid
Specimen Description:
Date Specimen was Collected: 04/09/24
Time Specimen was Collected: 11:49
Comment: Post Procedure
04/09/24 14:00
MetroNIDAZOLE 500 MG/100 ML [Flagyl 500 mg] 100 ml IV Q8H
04/09/24 18:00
Cefepime HCl [Maxipime] 2,000 mg IV Q12H
04/09/24 18:39
Urine Reflex Culture from UA [Urinalysis Reflex To Culture] Stat
Date Specimen was Collected: 04/09/24
Time Specimen was Collected: 18:35
Abnormal Lab Results
04/09/24
01:44
WBC 18.8 H 10^3/uL
(4.8-10.8)
RBC 4.24 L 10^6/uL
(4.70-6.10)
MCH 31.4 H pg
(27.0-31.0)
Abs Immat Gran (auto) 0.1 H 10^3/uL
(0-0.05)
Absolute Neuts (auto) 16.7 H 10^3/uL
(1.4-6.5)
Immature Gran % 0.6 H %
(0-0.5)
Neutrophils % 89.0 H %
(42.2-75.2)
Lymphocytes % 6.8 L %
(20.5-51.1)
PT 26.1 H Sec
(11.4-14.6)
APTT 37.4 H Sec
(23.4-35.0)
Sodium 128 L mmol/L
(135-145)
Chloride 97 L mmol/L
(98-107)
Carbon Dioxide 15 L mmol/L
(22-30)
BUN 22 H mg/dl
(9-20)
Creatinine 1.5 H mg/dL
(0.7-1.3)
Glucose 140 H mg/dl
(70-99)
Lactic Acid 5.8 H* mmol/L
(0.7-2.0)
Calcium 8.1 L mg/dl
(8.4-10.2)
Total Bilirubin 4.9 H mg/dl
(0.2-1.3)
AST 167 H U/L
(17-59)
ALT 128 H U/L
(0-50)
Alkaline Phosphatase 1005 H U/L
(38-126)
Albumin 2.7 L g/dl
(3.5-5.0)
04/09/24 01:44
04/09/24 01:44
Vital Signs
Initial and Last Documented VS:
Initial Vital Signs
Temp Pulse Resp BP Pulse Ox
99 F 104 20 75/52 95
04/09/24 01:19 04/09/24 01:19 04/09/24 01:19 04/09/24 01:19 04/09/24 01:19
Last Documented Vital Signs
Temp Pulse Resp BP Pulse Ox
98.1 F 83 16 102/68 92
04/11/24 07:38 04/11/24 07:38 04/11/24 07:38 04/11/24 07:38 04/11/24 07:38
Sales Representative Meats consulted with Physician
Sales Representative Meats consulted with physician?: Yes
Name of Physician Consulted: Deb
MDM/Problems Addressed
Differential Diagnosis Includes:
progressing abdominal mass, ascites, SBP
MDM/Problems Addressed:
69-year-old male currently being treated for pancreatic cancer with Dr. Hammer at [facility], history of chronic diarrhea since starting chemotherapy last December then had to stop due to severe diarrhea. 3 weeks ago started again with
chemo but again had severe diarrhea. Had CT abdomen/pelvis on 04/03 d/t diarrhea and found bilateral PEs and started on Eliquis, increase in pancreatic mass w increase in metastatic disease. Also new large volume ascites. Pt denies fever. Does feel
nauseous, abdominal pain worsened at midnight and vomited couple teaspoons amount of black emesis which relieved that pain some.
States pain is 6/10.
Afebrile,
CBC: WBC 18.8 w left shift
CMP: Creat 1.5
Lactate: 5.8
2:50 a.m.
Abd/pelvis CT result pending
Hospitalist notified of admission
Case discussed with Dr. Boyd
*Critical Care Note
Total Time (30-74mins, 75-104mins- exclusive of procedures): Not Applicable
ED Attending Note
-
Portions of this chart may have been created with voice recognition software.� Occasional wrong word or��sound alike� substitutions may have occurred due to the inherent limitations of voice recognition software.
Discharge Plan
Departure
Patient Disposition: Admit
Date of Disposition: 04/09/24
Time of Disposition: 02:55
Presentation/result/management discussed w/ accepting MD/DO: Hospitalist
Condition: Serious
Discharge Problem:
Pancreatic cancer, Abdominal pain, Abdominal distension
Interventions
Interventions:
*Risk Screen - Suicide Last Done: 04/09/24 01:19
*General Assessment Last Done: 04/09/24 01:41
*Neglect/Abuse Screening Last Done: 04/09/24 01:19
*ED- Fall Risk Assessment Last Done: 04/09/24 01:41
*ED COVID-19 Vaccine History Last Done: 04/09/24 14:59
*Nursing Disposition Last Done: 04/09/24 06:48
JQ-Amwllk-Hrkbsacxyv Assessment Last Done: 04/09/24 01:41
ED- Cardiac Assessment Last Done: 04/09/24 01:41
ED- Neurological Assessment Last Done: 04/09/24 01:41
ED- Pulmonary Assessment Last Done: 04/09/24 01:41
Discharge Date and Time
Discharge Date/Time: 04/09/24 06:48
[2024-04-09] MEDS: ZOFRAN 4 MG IV (02:03)
[2024-04-09] MEDS: NSS 1000 IV (02:03)
[2024-04-09] MEDS: MORPHINE SULFATE 2 MG IV (02:03)
[2024-04-09 02:08] LABS: INR 2.39; PT 26.1 Sec (11.4-14.6)
[2024-04-09 02:09] LABS: APTT 37.4 Sec (23.4-35.0)
[2024-04-09 02:12] LABS: Lactic Acid 5.8 mmol/L (0.7-2.0)
[2024-04-09 02:16] LABS: AST (SGOT) 167 U/L (17-59); Albumin 2.7 g/dl (3.5-5.0); Alkaline Phosphatase 1005 U/L (38-126); Blood Urea Nitrogen 22 mg/dl (9-20); Calcium 8.1 mg/dl (8.4-10.2); Carbon Dioxide 15 mmol/L (22-30); Chloride 97 mmol/L (98-107); Estimated Creatinine Clearance 50 ml/min; Glucose 140 mg/dl (70-99); Potassium 4.5 mmol/L (3.5-5.1); Sodium 128 mmol/L (135-145); Total Bilirubin 4.9 mg/dl (0.2-1.3); Total Protein 6.4 g/dl (6.3-8.2); eGFR 50.08
[2024-04-09 02:26] LABS: ALT (SGPT) 128 U/L (0-50)
--- NOTE | 2024-04-09 03:40 | HPS.HSE ---
Family Physician
-
Family Physician: Sanford Momin, DO
Chief Complaint
-
Abdominal pain and vomiting
History of Present Illness
This is a 69-year-old was diagnosed with pancreatic cancer in November 2023 status post biliary stent placement presenting to the emergency department with 1 day history of abdominal pain and vomiting.
Patient and spouse provided history. He reported that patient was initially on experimental chemotherapeutic regimen with resultant severe continuous diarrhea for several weeks. He had to be discontinued on the experimental trial and has been off
for chemo for several weeks up until around 3 weeks ago when he was started on a new regimen. They cannot tell me the exact regimen is being followed by Dr. Horvath. Even with this regimen the patient has continued to have diarrhea and there is
plan to start a different regimen in 1 day from today.
Patient had a recent follow-up CT scan which showed increased interval progression of his pancreatic cancer with new large volume ascites. He also had new finding of pulmonary embolism. This was done on 04/03. Patient reported that he started
having abdominal discomfort and generalized pain about 2 days ago. He did follow-up with oncology and time there was a plan to place him on a fentanyl patch but was not yet approved. He was given oxycodone and antiemetics. Patient took the
oxycodone at home but had nausea vomiting. He also tried a antiemetics Compazine. Continue to have nausea and vomiting. The patient reported he then had 1 large episode of possibly coffee-ground emesis. No diarrhea. He denies having fevers but
cannot safely chills or not. He denies any urinary symptoms.
Here in the emergency department he was afebrile, blood pressure was initially 90/64, pulse was 86. He was satting 90% on room air. White count is 18,000 with hemoglobin of 13.3 and a platelet count 339. Sodium was 128 bicarb 15, BUN 22 and a
creatinine of 1.5. Glucose was normal at 140. He had lactic acid of 5.8, bilirubin was now elevated to 4.9 with slight elevation in AST and ALT to the 110s. Phos was elevated to 1000.
Medical History
Past Medical History
Past Medical History: Reports Cancer (Primary cancer diagnosed November 2023. Status post biliary stenting?)
Past Surgical History: Reports Other
Social History
Tobacco: Non-smoker
Alcohol: None
Drug: None
Personal:
Living: With Family
Family History
Family History: Not pertinent
Allergies / Home Medications
Allergies reflects when Allergies were last updated in [facility].
Home Medications with original date entered in [facility]
Allergy/Medication List:
Allergies
Allergy/AdvReac Type Severity Reaction Status Date / Time
No Known Allergies Allergy Verified 01/04/24 19:26
Home Medications
Eliquis 5 mg tablet, 5 mg p.o. twice daily
Review of Systems
-
History Source: Patient and Family
Constitutional: Reports Fatigue
EENT: Reports No Symptoms
Respiratory: Reports No Symptoms
Cardiac: Reports No Symptoms
Abdomen/GI: Reports Abdominal Pain, Nausea, Vomiting and Diarrhea
: Reports No Symptoms
Musculoskeletal: Reports No Symptoms
Skin: Reports No Symptoms
Neurological: Reports No Symptoms
Endocrine: Reports No Symptoms
Hematologic/Lymphatic: Reports No Symptoms
Psych: Reports No Symptoms
Physical Exam
Vital Signs
Vital Signs
Temp Pulse Resp BP Pulse Ox
98.3 F 86 19 89/64 93
04/09/24 01:35 04/09/24 03:00 04/09/24 03:00 04/09/24 03:00 04/09/24 03:00
Physical Exam
General: Pain, Poor Appetite and Appears Chronically Ill
HEENT: NormoCephalic, Anicteric and Moist mucous membranes
Respiratory: Clear
Cardiac: S1/S2 and Regular Rhythm
Breast: Deferred by me
GI: Tender (Generalized) and Distended
Rectal: Deferred by Provider
Genito-urinary: Deferred by me
Musculoskeletal: No Clubbing, No Cyanosis and No Edema
Skin: Warm
Neuro: AO x 3 and Nonfocal/grossly intact
Hematologic/Lymphatic: No Lymphadenopathy
Psych: Calm
Laboratory Results
-
04/09/24 01:44
04/09/24 01:44
Laboratory Results
PT 26.1 Sec (11.4-14.6) H 04/09/24 01:44
INR 2.39 04/09/24 01:44
APTT 37.4 Sec (23.4-35.0) H 04/09/24 01:44
Lactic Acid 5.8 mmol/L (0.7-2.0) H* 04/09/24 01:44
Total Bilirubin 4.9 mg/dl (0.2-1.3) H 04/09/24 01:44
AST 167 U/L (17-59) H 04/09/24 01:44
ALT 128 U/L (0-50) H 04/09/24 01:44
Alkaline Phosphatase 1005 U/L (38-126) H 04/09/24 01:44
Data Reviewed
-
CT Scan: Report Reviewed by me (From 04/03/24)
Lab Data: Labs Reviewed by me
Old Records: Reviewed
Impression/Plan
-
IMPRESSION:
69-year-old with metastatic pancreatic cancer on chemotherapy last chemotherapy was ago presenting with abdominal distention abdominal pain nausea and vomiting. Has leukocytosis and elevated total bilirubin and alk phos. History complicated by
history of PE on Eliquis. History in addition he has severe lactic acidosis of 5.8, INR was 2.3, sodium 128. Is hemodynamically stable with somewhat soft blood pressure of 90s over 60. Suspect pain from ascites with possibility of new biliary
obstruction. UA is equivocal although is positive he does have lots of squamous cells. He has ongoing chronic diarrhea and is highly dehydrated but cannot rule out sepsis in the setting of elevated lactic acid and elevated PVCs.
PLAN:
1. Abdominal pain -cholestasis with elevated bilirubin likely from enlarging pancreatic masses, ascites
- admit to med/surg
- obtain follow up CT scan to eval for biliary obstruction
- trend tbili and lft
- npo for now
- IR consult for therapeutic paracentesis and to rule out infection
- will start empiric cefepime/flagyl for cholangitis
- supportive measures with antiemetics and pain control
- hob > 30
- GI consult
2. Sepsis - Elevated lactic acid and leukocytosis. Source possibly ascites vs cholangitis
- abx as above
- IV fluids with LR after 2 L bolus
- ascites drainage
- urine cultures
3. Hyponatremia - Patient w/ chronic diarrhea and now vomiting and low BPs. Suspect hypovolemic from fluid losses. Recent Na 130 - 133.
- IV fluids as above for resuscitation
- repeat in am
4. ROSALINO - Similarly suspect pre-renal
- continue iv fluids for now
DVT PPX - on apixaban
Code status - Full code
[2024-04-09] MEDS: COMPAZINE 10 MG IV (03:44)
[2024-04-09] MEDS: MAXIPIME 2000 MG IV ×2 (05:28→17:54)
[2024-04-09] MEDS: FLAGYL 500 MG 100 IV ×3 (05:29→21:15)
[2024-04-09] MEDS: DILAUDID 0.5 MG IV (05:29)
[2024-04-09] MEDS: LR 1000 IV ×2 (07:50→22:04)
[2024-04-09] MEDS: NSS (PRESERVATIVE FREE) 10 ML IV (07:56)
[2024-04-09] MEDS: ELIQUIS 5 MG PO (07:56)
[2024-04-09] MEDS: PROTONIX IV 40 MG IV (07:57)
--- NOTE | 2024-04-09 10:13 | CON.GI ---
Addendum entered and electronically signed by Michael Marques MD 04/09/24 16:00:
I saw and examined the patient.
The PISTON [employer]KER or PA's note was reviewed and I agree with the note.
Comment: 69yo male dx'd with metastatic pancreatic cancer last fall s/p ERCP metal stent and plastic stent then. Was getting Folfirinox, ketryda, futinatinib and developed colitis required remicade. Presents now with CGE, abd pain. WBC 18.8.
Fluid tapped today WBC 10,335 and 92% PMN. CT on admission showed colon and SB thickening concerning for entrocolitis but underdistention not completely excluded, no evidence for perforation. LImited exam w/o oral contrast. TBil 4.9, AST 167, ALT
128, increased from 04/01/24 (bili 1.1). Rpt Bili down to 2.4.
REC:
Agree with ceftriaxone/flagyl to rx SBP
Await fluid culture and sensitivities
Give IV albumin 1.5g/kg day 1 (125g) and then 1g/kg day 3 (75g)
Trend LFTs. SBP could explain presentation, so no indication for stent change at this time. Can reconsider, but LFTs improved on repeat.
Addendum entered and electronically signed by LISSET Good 04/09/24 11:33:
reviewed with Dr. 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 Pt was on trial and had to stop due to colitis.
Original Note:
Consultation
-
Date/Time Consultation Requested: 04/09/24 8645
Date/Time Consultation Performed: 04/09/24 1015
Requesting Provider: Alexus Garcia MD
Performing Provider: LISSET Bennett, Michael Marques MD
Reason for Consultation: vomiting blood, abdominal pain
Medical History
Chief Complaint / HPI
Chief Complaint: abdominal pain, vomiting black emesis.
History of Present Illness:
Pt is a 69yo with hx pancreatic CA with mets to liver/lymph nodes diagnosed in November 2023. At diagnosis pt completed EUS with T2NxMX with evidence for vascular involvement with invasion into SMA with encasement with mets and enlarged fernando
hepatis nodes. ERCP completed with severe biliary stricture in middle third of main bile duct with sphincterotomy and placement of plastic stent in right hepatic duct and metal stent in CBD . Pt was started on chemo in December but stopped due to
severe diarrhea. He resumed 3 weeks ago and due again today. Pt also noted with follow up imaging on 04/03 with new PE - started on Eliquis increased size of pancreatic mass and hepatic mets, with cont encasement and narrowing of SMV with new
narrowing of proximal main portal vein and new large volume ascites. He now present with abdominal pain and dark emesis. CT on admission concern for colonic and SB thickening and enterocolitis, large amount of ascites. Labs notable for WBC 18.8,
hbg 13.3, platelets 329, Na 128, creat 1.5, lactate 5.8, bili 4.9, AST 167, ALT 128, alk phos 1005. Pt also noted with hypotension.
At this time patient admits to vomiting small amount of dark emesis, He has had about 15 lbs wt loss since diagnosis. Diarrhea with some improvement but admits to taking some narcotics for abdominal pain. He was taking Aleve daily but stopped
about 3 weeks ago when started on Eliquis.
Past Medical History
Past Medical History: Cancer (pancreatic cancer with mets ) and Other (chronic diarrhea, multiple PE's, H pylori)
Social History
Tobacco: Non-Smoker
Alcohol: None
Drug: None
Personal: Partner
Employment: Retired
Family History
Family History: Other (mother with lung CA, uncle with panc CA)
Allergies / Home Medications
Allergy/AdvReac Type Severity Reaction Status Date / Time
No Known Allergies Allergy Verified 01/04/24 19:26
�Medication �Instructions �Recorded
doxylamine succinate 25 mg tablet 25 mg PO HSPRN PRN sleep 11/07/23
(Sleep Aid (doxylamine))
sildenafil 25 mg tablet 25 mg PO DAILYPRN PRN ED 11/07/23
tamsulosin 0.4 mg capsule 0.4 mg PO DAILY #30 caps 11/09/23
Chemo Trial Drug 5 tab PO DAILY 01/04/24
loperamide 2 mg capsule 4 mg PO Q6 01/04/24
Review of Systems
-
History Source: Patient
Constitutional: Reports Weight Loss and Fatigue
EENT: Reports No Symptoms
Respiratory: Reports No Symptoms
Abdomen/GI: Reports Abdominal Pain, Nausea and Vomiting (dark black emesis )
Musculoskeletal: Reports No Symptoms
Skin: Reports No Symptoms
Neurological: Reports Weakness
Endocrine: Reports No Symptoms
Hematologic/Lymphatic: Reports Bleeding
Vital Signs
Temp Pulse Resp BP Pulse Ox
97.9 F 89 16 96/61 93
04/09/24 06:44 04/09/24 06:44 04/09/24 06:44 04/09/24 06:44 04/09/24 06:44
Physical Exam
Exam
General: Other (thin appearing but awake and alert)
HEENT: Normocephalic and Anicteric
Respiratory: Clear
Cardiac: Regular Rhythm and Peripheral Edema
GI: Soft, Tender (diffuse with mild guarding) and Distended
Musculoskeletal: No Clubbing and No Cyanosis
Skin: Warm and Dry
Neuro: Awake, Alert and AO x 3
Psych: Calm
Results
WBC 18.8 10^3/uL (4.8-10.8) H 04/09/24 01:44
Hgb 13.3 g/dL (13.0-18.0) 04/09/24 01:44
Hct 39.4 % (39.0-52.0) 04/09/24 01:44
MCV 92.9 fL (80.0-94.0) 04/09/24 01:44
Plt Count 329 10^3/uL (130-400) 04/09/24 01:44
Absolute Neuts (auto) 16.7 10^3/uL (1.4-6.5) H 04/09/24 01:44
PT 26.1 Sec (11.4-14.6) H 04/09/24 01:44
INR 2.39 04/09/24 01:44
APTT 37.4 Sec (23.4-35.0) H 04/09/24 01:44
Sodium 128 mmol/L (135-145) L 04/09/24 01:44
Potassium 4.5 mmol/L (3.5-5.1) 04/09/24 01:44
Chloride 97 mmol/L (98-107) L 04/09/24 01:44
Carbon Dioxide 15 mmol/L (22-30) L 04/09/24 01:44
BUN 22 mg/dl (9-20) H 04/09/24 01:44
Creatinine 1.5 mg/dL (0.7-1.3) H 04/09/24 01:44
Calcium 8.1 mg/dl (8.4-10.2) L 04/09/24 01:44
Total Bilirubin 4.9 mg/dl (0.2-1.3) H 04/09/24 01:44
AST 167 U/L (17-59) H 04/09/24 01:44
ALT 128 U/L (0-50) H 04/09/24 01:44
Alkaline Phosphatase 1005 U/L (38-126) H 04/09/24 01:44
Diagnostic Image Results:
11/07/23 CT Abd/pelvis W Iv Cont
Findings suspicious for pancreatic head mass/primary malignancy with biliary ductal dilatation.
Several small scattered low-attenuation hepatic lesions suspicious for malignancy/metastatic disease
Sigmoid diverticulosis..
Small simple left renal cyst
11/2023 MRI with and without contrast
IMPRESSION: There is an obstructing pancreatic head mass, almost certainly represents pancreatic carcinoma. See above description.
There are hepatic lesions with increased diffusion-weighted signal and decreased enhancement postcontrast, which are highly suspicious for hepatic metastatic lesions.
Slightly enlarged lymph node just inferior to the portacaval space. [id number] lymph node in the interaortocaval region. These are suspicious for neoplastic lymphadenopathy.
01/21/24 CT Chest/abd/pel W Iv Cont
1. Unchanged heterogeneously enhancing mass within the pancreatic head, measuring approximately 4.7 cm in diameter, likely corresponding to the patient's known pancreatic carcinoma. Pancreatic tumor encases and narrows the superior mesenteric artery
and superior mesenteric vein, unchanged compared to prior CT.
2. Multiple hepatic metastases, without significant change compared to prior study.
3. Small amount of pelvic free fluid, new compared to prior study.
In addition, there is a 1.4 cm portacaval lymph node on series 301 image 24, not significantly changed in size compared to prior CT. Remaining findings are unchanged. Portacaval lymph node was discussed with the research coordinator at [facility] on 02/12/2024.
04/03/24 CT Chest/abd/pel W Iv Cont
1. There are new pulmonary emboli involving the right interlobar artery and truncus anterior which extend into the right segmental pulmonary arteries. There is a left lower lobe lobar embolus which extends into 2 lower lobe segmental pulmonary
arteries.
2. There is increased size of the hypoattenuating mass within the pancreatic head which measures up to 5.0 cm, previously 4.7 cm. There is persistent encasement and narrowing of the superior mesenteric artery and vein. There is new narrowing of the
proximal main portal vein.
3. Increased size of the hepatic metastasis with new metastasis including a 4.0 cm lesion in the caudate lobe.
4. New large volume ascites.
04/09/24 CT A/p
Appearance of colonic and small bowel wall thickening concerning for enterocolitis. New. Findings due to limited distention cannot be completely excluded. Limited exam without oral contrast.
Findings consistent with known pancreatic head mass. . Stable
Hypodense hepatic lesions consistent with known hepatic metastasis. Stable.
Pneumobilia. Improved. Biliary and pancreatic stents. Stable.
Large amount of abdominopelvic ascites. Progressed.
Hepatic fatty infiltration. Stable
Nodular hepatic margin suggesting cirrhosis. Stable.
Findings suggesting mild volume overload or third spacing. Stable
Small left renal cysts. Stable.
Mild diverticulosis. Stable
Prior GI Procedures:
11/08/[address] Garrison showed a pancreatic head mass staged T2 NX MX status post FNA. There is sonographic evidence suggesting vascular involvement with invasion into the SMV with encasement. Not a surgical candidate. Also imaging is
concerning for metastatic disease. Enlarged lymph node in the fernando hepatis region
-- ERCP performed malignant appearing severe biliary stricture in the middle third of the main bile duct status post biliary sphincterotomy plastic stent placed into the right hepatic duct and covered metal stent in the common bile duct.
EGD: none
Colonoscopy: years ago-- hx Cologuard neg last year
Assessment / Plan
-
Pt is a 69yo with hx pancreatic CA with mets to liver/lymph nodes diagnosed in November 2023. At diagnosis pt completed EUS with T2NxMX with evidence for vascular involvement with invasion into SMA with encasement with mets and enlarged fernando
hepatis nodes. ERCP completed with severe biliary stricture in middle third of main bile duct with sphincterotomy and placement of plastic stent in right hepatic duct and metal stent in CBD . Pt was started on chemo in December but stopped due to
severe diarrhea. He resumed 3 weeks ago and due again today. Pt also noted with follow up imaging on 04/03 with new PE - started on Eliquis increased size of pancreatic mass and hepatic mets, with cont encasement and narrowing of SMV with new
narrowing of proximal main portal vein and new large volume ascites. He now present with abdominal pain and dark emesis. CT on admission concern for colonic and SB thickening and enterocolitis, large amount of ascites. Labs notable for WBC 18.8,
hbg 13.3, platelets 329, Na 128, creat 1.5, lactate 5.8, bili 4.9, AST 167, ALT 128, alk phos 1005. Pt also noted with hypotension.
-metastatic pancreatic adeno CA with mets to liver, nodes, vascular involvement
-hx prior EUS/ERCP with biliary stenting
-diffuse abdominal pain
-hypotension/leukocytosis/elevated lactate with concern for sepsis
-dark emesis
-increased LFT's
-coagulopathy is setting of Eliquis use
-ROSALINO on admission
-CT with colonic and SB thickening concern for enteritis
-new ascites/LE edema
-recent PE on newly added Eliquis
-prior NSAID use
-recent diarrhea
PLAN:
Pt with concern for sepsis on admission-- Etiology unclear -- biliary with hx stent, Ascites with SBP, entercolitis vs related to recent chemo vs other
will add blood cultures
still with abdominal pain with some guarding- pain appear diffuse agree with para to rule out SBP -- will add cytology to testing
will review with Dr. Marques need for ERCP with rise in LFT's with stents in place
reviewed with Dr. Brewer for holding Eliquis ( last dose 3/5 AM) with dark emesis and rise in LFT's if ERCP needed
cont NPO
IV fluid/abx
trend labs and creat with rise since admission
t/c eventual EGD
sent message to oncology to clarify most recent treatment completed
-
-
Thank you for consultation and allowing me to participate in the patient's care. Please call the composition [facility] GI physician during the after hours with any questions or concerns.
[2024-04-09 13:07] LABS: Body Fluid Mononuclear 7.9 %; Body Fluid Polymorphonuclear 92.1 %; Body Fluid WBC 10335 /CUMM
[2024-04-09 13:09] LABS: Body Fluid Albumin < 1.0 g/dl; Body Fluid Amylase < 30 U/L; Body Fluid LDH 362 U/L; Body Fluid Protein 2.5 g/dl
[2024-04-09] MEDS: FLEXBUMIN 50 IV (13:23)
[2024-04-09 14:23] LABS: Body Fluid Second Tech AMA
--- NOTE | 2024-04-09 14:25 | W.PN.HOSP.TC ---
Today's Communication/Plan
-
Follow-up blood and ascitic fluid cultures.
Empiric antibiotics
IV fluids
Albumin.
GI evaluation for stent placement
Follow lactic acid and CMP
Assessment / Plan
Assessment / Plan
Impression:
69-year-old with metastatic pancreatic cancer on chemotherapy last chemotherapy was ago presenting with abdominal distention abdominal pain nausea and vomiting. Has leukocytosis and elevated total bilirubin and alk phos. History complicated by
history of PE on Eliquis. History in addition he has severe lactic acidosis of 5.8, INR was 2.3, sodium 128. Is hemodynamically stable with somewhat soft blood pressure of 90s over 60. Suspect pain from ascites with possibility of new biliary
obstruction. UA is equivocal although is positive he does have lots of squamous cells. He has ongoing chronic diarrhea and is highly dehydrated but cannot rule out sepsis in the setting of elevated lactic acid and elevated PVCs.
Sepsis.
� Suspect intra-abdominal source, possible SBP/biliary obstruction
New onset of ascites
Elevated LFTs mixed pattern with significant bilirubinemia
Concerns for enteritis�colitis related to recent immunotherapy
Acute kidney injury.
Lactic acidosis.
Hypovolemic hyponatremia.
Reported dark emesis on admission
Conditions prior to admission:
Metastatic pancreatic adenocarcinoma with hepatic mets, vascular involvement
Biliary stent in place
Status post Folfironix Keytruda Futinatinib
Reported associated colitis requiring Remicade
Recently on trial therapy
Recent diagnosis of pulmonary embolism initiated on Eliquis
04/09/24 CT A/p
Appearance of colonic and small bowel wall thickening concerning for enterocolitis. New. Findings due to limited distention cannot be completely excluded. Limited exam without oral contrast.
Findings consistent with known pancreatic head mass. . Stable
Hypodense hepatic lesions consistent with known hepatic metastasis. Stable.
Pneumobilia. Improved. Biliary and pancreatic stents. Stable.
Large amount of abdominopelvic ascites. Progressed.
Hepatic fatty infiltration. Stable
Nodular hepatic margin suggesting cirrhosis. Stable.
Findings suggesting mild volume overload or third spacing. Stable
Small left renal cysts. Stable.
Mild diverticulosis. Stable
04/03/24 CT Chest/abd/pel W Iv Cont
1. There are new pulmonary emboli involving the right interlobar artery and truncus anterior which extend into the right segmental pulmonary arteries. There is a left lower lobe lobar embolus which extends into 2 lower lobe segmental pulmonary
arteries.
2. There is increased size of the hypoattenuating mass within the pancreatic head which measures up to 5.0 cm, previously 4.7 cm. There is persistent encasement and narrowing of the superior mesenteric artery and vein. There is new narrowing of the
proximal main portal vein.
3. Increased size of the hepatic metastasis with new metastasis including a 4.0 cm lesion in the caudate lobe.
4. New large volume ascites.
Plan:
Sepsis
Septic shock with hypotension
Suspect biliary source or SBP. New onset of ascites.
Status post paracentesis 04/09 6500 mL with elevated PMN count. Elevated white count in ascitic fluid could be related to malignant ascites versus SBP
There is a concern for enterocolitis related to immunotherapy. If persistent diarrhea check stool cultures/stool for C. difficile
Follow cultures.
GI/GI advanced endoscopy evaluation for biliary stent placement.
Follow LFTs closely.
Empiric antibiotics cefepime/metronidazole pain
Albumin infusion
Acute kidney injury
Hypovolemic hyponatremia.
Lactic acidosis.
Bladder scan.
Check urine sodium and urine osmolarity.
Lactated Ringer's.
Albumin.
Follow serial BMP and lactic acid level
Reported hematemesis on admission
Monitor for recurrence he.
Hemoglobin stable at 13.
IV PPI.
Hold Eliquis
Recent diagnosis of pulmonary embolism
Initiated on Eliquis on 04/03
Hold anticoagulation acutely given above issues including possible need for endoscopic evaluation and stent exchange as well as episode of hematemesis per
If prolonged period of time without oral anticoagulation, consider heparin bridge or IVC interruption.
Anticipated Discharge: > 48 hours
Subjective/Interval History
-
Date of Service: April 09, 2024
Objective Data
-
Labs:
Laboratory Results
04/09/24 04/09/24
01:44 14:17
WBC Pending
Hgb Pending
Hct Pending
Plt Count Pending
Sodium Pending
Potassium Pending
Chloride Pending
Carbon Dioxide Pending
BUN Pending
Creatinine Pending
Glucose Pending
Calcium Pending
Total Bilirubin Pending
AST Pending
ALT 128 H Pending
Alkaline Phosphatase Pending
Vital Signs:
Vital Signs
Temp Pulse Resp BP Pulse Ox
98.1 F 91 16 106/66 95
04/09/24 13:34 04/09/24 13:34 04/09/24 13:34 04/09/24 13:34 04/09/24 13:34
Physical Exam
-
General: Well Developed and No Apparent Distress
HEENT: Normocephalic, Atraumatic and Moist Mucous Membranes
Respiratory: Clear to Auscultation
Cardiac: Regular Rhythm and S1/S2; Negative Murmur, Rub or Gallop
GI: Soft, Nontender, Nondistended and Normal Bowel Sounds; Negative Organomegaly
Rectal: Deferred by Provider
Musculoskeletal: No Clubbing, No Cyanosis and No Edema
Skin: Negative Rash
Neuro: Nonfocal/Grossly Intact
[2024-04-09 14:35] LABS: Hematocrit 35.1 % (39.0-52.0); Hemoglobin 11.7 g/dL (13.0-18.0); Mean Corp Hgb Conc. 33.3 g/dL (33.0-37.0); Mean Corpuscular Hgb 31.9 pg (27.0-31.0); Mean Corpuscular Volume 95.6 fL (80.0-94.0); Mean Platelet Volume 9.8 fL (7.4-10.4); Platelet Count 256 10^3/uL (130-400); Red Blood Cell Count 3.67 10^6/uL (4.70-6.10); Red Cell Dist. Width 13.4 % (11.5-14.5); White Blood Cell Count 16.6 10^3/uL (4.8-10.8)
[2024-04-09 14:43] LABS: ALT (SGPT) 95 U/L (0-50); AST (SGOT) 81 U/L (17-59); Albumin 2.5 g/dl (3.5-5.0); Alkaline Phosphatase 592 U/L (38-126); Blood Urea Nitrogen 30 mg/dl (9-20); Calcium 8.1 mg/dl (8.4-10.2); Carbon Dioxide 21 mmol/L (22-30); Chloride 97 mmol/L (98-107); Estimated Creatinine Clearance 39 ml/min; Glucose 167 mg/dl (70-99); Potassium 5.1 mmol/L (3.5-5.1); Sodium 128 mmol/L (135-145); Total Bilirubin 2.4 mg/dl (0.2-1.3); Total Protein 5.6 g/dl (6.3-8.2); eGFR 35.46
[2024-04-09 15:02] LABS: % Basophils 0.2 % (0-2); % Immature Granulocytes 0.5 % (0-0.5); % Lymphocytes 5.9 % (20.5-51.1); % Monocytes 2.8 % (1.7-9.3); % Neutrophils 90.6 % (42.2-75.2); Absolute Immature Granulocytes 0.1 10^3/uL (0-0.05); Absolute Monocytes 0.5 10^3/uL (0.1-0.6); Absolute Neutrophils 15.1 10^3/uL (1.4-6.5); Nucleated Red Blood Cells % 0 % (-)
--- NOTE | 2024-04-09 15:05 | CM ---
Patient seen at bedside earlier today as he was going to test. Patient requested CM call Paty his life partner. Paty stated that she has a POA for patient. they live in a 2 story home with steps. Patient PCP Dr. Momin and he uses [facility] in
[place]. Patient has needed increased help from significant other recently and she would like assessment for home health needs. Paty asking for physician to call her. CM will continue to follow for discharge planning needs.
Plan; home with family; watch for VN needs.
[2024-04-09] MEDS: FLEXBUMIN 100 IV (16:51)
[2024-04-09] MEDS: STERILE WATER FOR INJECTION 10 ML IV (17:54)
[2024-04-09 18:48] LABS: Urine Albumin 2+ (Neg - Trace); Urine Bilirubin 1+ (Negative); Urine Character Clear (Clear); Urine Color Amber; Urine Glucose Negative (Negative); Urine Ketone 1+ (Negative); Urine Leukocyte 1+ (Negative); Urine Nitrite Negative (Negative); Urine Occult Blood 1+ (Negative); Urine Urobilinogen 1+ (Neg - 1+)
[2024-04-09 18:52] LABS: Osmolality Urine 573 mOsm/kg (300-900)
[2024-04-09 18:58] LABS: Urine Squamous Cell 0-2 /LPF (Few)
[2024-04-09 18:59] LABS: Urine Mucus Moderate; Urine Red Blood Cell 0-2 /HPF (0-2)
[2024-04-09 19:00] LABS: Urine Bacteria Few (Negative)
[2024-04-09 19:07] LABS: Urine Sodium 17 mmol/L (30-90)
[2024-04-09 22:31] LABS: Lactic Acid 1.9 mmol/L (0.7-2.0)
[2024-04-10] MEDS: FLEXBUMIN 100 IV ×3 (00:23→17:08)
[2024-04-10] MEDS: STERILE WATER FOR INJECTION 10 ML IV (05:45)
[2024-04-10] MEDS: MAXIPIME 2000 MG IV (05:45)
[2024-04-10] MEDS: FLAGYL 500 MG 100 IV ×2 (05:45→13:15)
[2024-04-10 06:42] LABS: INR 3.38; PT 34.5 Sec (11.4-14.6)
[2024-04-10 06:53] LABS: % Basophils 0.2 % (0-2); % Immature Granulocytes 0.6 % (0-0.5); % Lymphocytes 8.3 % (20.5-51.1); % Monocytes 3.4 % (1.7-9.3); % Neutrophils 87.5 % (42.2-75.2); Absolute Immature Granulocytes 0.1 10^3/uL (0-0.05); Absolute Monocytes 0.4 10^3/uL (0.1-0.6); Absolute Neutrophils 10.4 10^3/uL (1.4-6.5); Hemoglobin 8.6 g/dL (13.0-18.0); Mean Corp Hgb Conc. 34.4 g/dL (33.0-37.0); Mean Corpuscular Volume 92.9 fL (80.0-94.0); Mean Platelet Volume 9.7 fL (7.4-10.4); Nucleated Red Blood Cells % 0 % (-); Platelet Count 168 10^3/uL (130-400); Red Blood Cell Count 2.69 10^6/uL (4.70-6.10); Red Cell Dist. Width 13.5 % (11.5-14.5); White Blood Cell Count 11.8 10^3/uL (4.8-10.8)
[2024-04-10 07:55] VITALS: BP 92/59
[2024-04-10 08:14] LABS: ALT (SGPT) 57 U/L (0-50); AST (SGOT) 44 U/L (17-59); Albumin 2.2 g/dl (3.5-5.0); Alkaline Phosphatase 307 U/L (38-126); Blood Urea Nitrogen 31 mg/dl (9-20); Calcium 7.9 mg/dl (8.4-10.2); Carbon Dioxide 24 mmol/L (22-30); Chloride 100 mmol/L (98-107); Direct Bilirubin 0.8 mg/dl (0.0-0.4); Estimated Creatinine Clearance 64 ml/min; Glucose 130 mg/dl (70-99); Potassium 4.6 mmol/L (3.5-5.1); Sodium 126 mmol/L (135-145); Total Bilirubin 1.5 mg/dl (0.2-1.3); Total Protein 4.7 g/dl (6.3-8.2); eGFR > 60.00
[2024-04-10] MEDS: PROTONIX IV 40 MG IV (08:38)
[2024-04-10] MEDS: NSS (PRESERVATIVE FREE) 10 ML IV (08:39)
[2024-04-10] MEDS: LR IV ×2 (08:52)
--- NOTE | 2024-04-10 11:07 | CON.ONC ---
Addendum entered and electronically signed by Baljeet Hammer DO 04/10/24 12:00:
Had a dose of FOLFOX on 03/13.
Original Note:
Impression
Impression
Progressive pancreatic cancer
Symptomatic ascites rule out SBP no bacterial growth yet reported
Likely upper GI bleed with emesis of coffee grounds
Large volume pulmonary embolus without clinical symptoms
Colitis/malabsorption- previous protracted steroid use
Anemia with 5 g drop now 8.6 g/dL
Plan
Plan
Monitor for stress dose steroids
Omeprazole
Gastroenterology to evaluate possibility of upper GI bleed to ascertain safety of anticoagulation
If bleeding IVC filter
Eliquis on hold
Paracentesis as needed for pain relief, balance with depletion of albumin
Continue antibiotics
Goals of care restorative, although complications and rapid progression of disease may be exhausting his will to treat
He is yet to have a significant opportunity for systemic therapy
Patient History
History of Present Illness
Patient is well-known to me as a 69-year-old was diagnosed with pancreatic cancer in November 2023 status post biliary stent placement having increasing abdominal discomfort and recent development of ascites. He received an initial systemic
treatment on clinical trial with FOLFIRINOX/pembrolizumab/futibatinib. He received 3 cycles of treatment but suffered intractable colitis presumably secondary to PD-L1 therapy last dose administered 01/09/2024. He was treated with 2 cycles of
Remicade and aggressive support. His diarrhea has now started to subside with the initiation of Creon. A recent CT scan restaging for the clinical trial revealed evidence of serendipitously discovered large burden pulmonary embolus and evidence of
progressive disease. Eliquis was initiated early in the week. Unfortunately he developed onset sudden onset of worsening discomfort and an episodes of coffee-ground emesis for which he was sent to the emergency room and has been admitted to the "[facility]. Paracentesis and culture obtained with a presumptive diagnosis of SBP. Eliquis reversed and no additional episodes of coffee-ground emesis reported. His performance status has steadily declined and initiation second line chemotherapy
with gemcitabine and Abraxane was deferred this week.
Past-Medical/Surgical History
Past Medical History
Cancer (pancreatic cancer with mets ) and Other (chronic diarrhea, multiple PE's, H pylori)
Social History
Tobacco: Non-Smoker
Alcohol: None
Drug: None
Personal: Partner
Employment: Retired from [employer]
Family History
Family History: Other (mother with lung CA, uncle with panc CA)
Patient Medication
�Medication �Instructions �Recorded �Confirmed �Last Taken �Type
doxylamine succinate 25 mg tablet 25 mg PO HSPRN PRN sleep 11/07/23 01/04/24 Unknown History
(Sleep Aid (doxylamine))
sildenafil 25 mg tablet 25 mg PO DAILYPRN PRN ED 11/07/23 01/04/24 Unknown History
tamsulosin 0.4 mg capsule 0.4 mg PO DAILY #30 caps 11/09/23 01/04/24 12/06/23 Rx
Chemo Trial Drug 5 tab PO DAILY 01/04/24 01/04/24 Unknown History
loperamide 2 mg capsule 4 mg PO Q6 01/04/24 01/04/24 Unknown History
Active Medications
Generic Name Dose Route Start Last Admin
Trade Name Freq PRN Reason Stop Dose Admin
Acetaminophen 650 mg 04/09/24 06:46
Acetaminophen 325 Mg Tablet PO 05/07/24 06:45
Q4HPRN PRN
mild pain/DELGADILLO/temp> 100.4F
Apixaban 5 mg 04/09/24 08:00 04/09/24 07:56
Apixaban (Eliquis) 5 Mg Tablet PO 05/07/24 07:59 5 mg
BID CHHAYA Administration
Cefepime HCl 2,000 mg 04/09/24 18:00 04/10/24 05:45
Cefepime Hcl 2,000 Mg/12.5 Ml Vial IV 2,000 mg
Q12H CHHAYA Administration
Heparin Sodium (Porcine) 500 unit 04/09/24 10:00 04/09/24 11:14
Heparin Pf (100 Units/Ml) 5 Ml Syr Sc Port IV 05/07/24 09:59 500 unit
PER PROTOCOL CHHAYA Administration
Hydromorphone HCl 0.5 mg 04/09/24 06:46
Hydromorphone 0.5 Mg/0.5 Ml Syringe IV 04/23/24 06:45
Q4HPRN PRN
severe pain
Metronidazole 100 mls @ 100 mls/hr 04/09/24 14:00 04/10/24 05:45
Flagyl 500 Mg IV 100 mls
Q8H CHHAYA Administration
Albumin Human 25 grams in 100 mls @ 60 mls/hr 04/09/24 15:40 04/10/24 08:37
Flexbumin IV 04/10/24 17:19 100 mls
Q8H CHHAYA Administration
Ondansetron HCl 4 mg 04/09/24 06:46
Ondansetron 4 Mg/2 Ml Vial IV 05/07/24 06:45
Q6HPRN PRN
nausea and vomiting
Oxycodone HCl 5 mg 04/09/24 06:46
Oxycodone 5 Mg Regular Release Tablet PO 04/23/24 06:45
Q4HPRN PRN
moderate pain
Pantoprazole Sodium 40 mg 04/09/24 08:00 04/10/24 08:38
Pantoprazole Sodium 40 Mg/10 Ml Vial IV 05/07/24 07:59 40 mg
DAILY CHHAYA Administration
Sodium Chloride 0 flush 04/09/24 04:00
Sodium Chloride 0.9% (Flush) Syringe IV 05/07/24 03:59
PER PROTOCOL CHHAYA
Sodium Chloride 0 flush 04/09/24 07:00
Sodium Chloride 0.9% (Flush) Syringe IV 05/07/24 06:59
PER PROTOCOL CHHAYA
Sodium Chloride 10 ml 04/09/24 08:00 04/10/24 08:39
Sodium Chloride 0.9% (Preservative Free) 10 Ml Vial IV 05/07/24 07:59 10 ml
DAILY CHHAYA Administration
Sterile Water 10 ml 04/09/24 18:00 04/10/24 05:45
Sterile Water For Injection 10 Ml Vial IV 05/07/24 17:59 10 ml
Q12H CHHAYA Administration
Review of Systems
-
12 point review of systems fails elicit additional complaints other than those reviewed in the HPI
Physical Exam
-
Physical Exam
Exam
General: Other (thin appearing but awake and alert)
HEENT: Normocephalic and Anicteric
Respiratory: Clear
Cardiac: Regular Rhythm and Peripheral Edema
GI: Soft, less tender and distention recurring
Musculoskeletal: No Clubbing and No Cyanosis
Skin: Warm and Dry
Neuro: Awake, Alert and AO x 3
Psych: Calm
Labs
Lab Results
WBC 11.8 10^3/uL (4.8-10.8) H 04/10/24 06:15
RBC 2.69 10^6/uL (4.70-6.10) L 04/10/24 06:15
Hgb 8.6 g/dL (13.0-18.0) L D 04/10/24 06:15
Hct 25.0 % (39.0-52.0) L 04/10/24 06:15
MCV 92.9 fL (80.0-94.0) 04/10/24 06:15
MCH 32.0 pg (27.0-31.0) H 04/10/24 06:15
MCHC 34.4 g/dL (33.0-37.0) 04/10/24 06:15
RDW 13.5 % (11.5-14.5) 04/10/24 06:15
Plt Count 168 10^3/uL (130-400) D 04/10/24 06:15
MPV 9.7 fL (7.4-10.4) 04/10/24 06:15
Abs Immat Gran (auto) 0.1 10^3/uL (0-0.05) H 04/10/24 06:15
Absolute Neuts (auto) 10.4 10^3/uL (1.4-6.5) H 04/10/24 06:15
Absolute Lymphs (auto) 1.0 10^3/uL (1.2-3.4) L 04/10/24 06:15
Absolute Monos (auto) 0.4 10^3/uL (0.1-0.6) 04/10/24 06:15
Absolute Eos (auto) 0.0 10^3/uL (0-0.7) 04/10/24 06:15
Absolute Basos (auto) 0.0 10^3/uL (0-0.2) 04/10/24 06:15
Immature Gran % 0.6 % (0-0.5) H 04/10/24 06:15
Neutrophils % 87.5 % (42.2-75.2) H 04/10/24 06:15
Lymphocytes % 8.3 % (20.5-51.1) L 04/10/24 06:15
Monocytes % 3.4 % (1.7-9.3) 04/10/24 06:15
Eosinophils % 0.0 % (0-6) 04/10/24 06:15
Basophils % 0.2 % (0-2) 04/10/24 06:15
Creatinine 1.2 mg/dL (0.7-1.3) 04/10/24 06:15
Vital Signs
Vital Signs
Temp Pulse Resp BP Pulse Ox
97.8 F 88 17 92/59 93
04/10/24 07:55 04/10/24 07:55 04/10/24 07:55 04/10/24 07:55 04/10/24 07:55
--- NOTE | 2024-04-10 11:31 | W.PN.GI.CBS2 ---
Addendum entered and electronically signed by LISSET Good 04/10/24 16:29:
clarification-- anemia with concern for acute blood loss with coffee ground emesis on admission
Addendum entered and electronically signed by Michael Marques MD 04/10/24 13:22:
I saw and examined the patient.
The POLE INCISOR OPERATOR or PA's note was reviewed and I agree with the note.
Comment: Abd pain improved. No emesis
ABD soft mild distention, mild tender
REC:
Cont abx for SBP. Await fluid culture. Elevated WBC could also be due to tumor
Give 1g/kg IV albumin tomorrow
Hgb dropped to 8 today. Hematology wishes to resume anticoagulation for PE, but need to r/o UGIB.
Plan EGD tomorrow. I held eliquis, order appears active but looks like last dose was yesterday am
If EGD negative, ok anticoagulate. If positive, IVC filter
Original Note:
Today's Communication / Plan
-
+ abdominal pain with distention on admission with concern for SBP with elevated WBC's-- can also be related to malignant process with pathology pending
s/p Albumin day 1 still completing and will need further albumin Day 3
cont abx
LFT's improving
pt also with dark emesis on admission and drop in hbg was running in 11 range but now 8.6
no further vomiting or dark stools
I reviewed with Dr. Hammer -- would like to consider EGD to rule out PUD with recent steroid use vs need to consider filter
discussed with patient and significant other -- consider options and will further review with Dr. Marques for today vs tomorrow
Eliquis is due to resume tonight will need to decide if proceeding with continued use
cont to trend hbg
ok to resume panc enzymes as pt takes at home
may need repeat para as increased ascites -- discussed with Dr. Hammer for ongoing need as may be malignant ascites
Assessment / Plan
-
Pt is a 69yo with hx pancreatic CA with mets to liver/lymph nodes diagnosed in November 2023. At diagnosis pt completed EUS with [id number] with evidence for vascular involvement with invasion into SMA with encasement with mets and enlarged fernando
hepatis nodes. ERCP completed with severe biliary stricture in middle third of main bile duct with sphincterotomy and placement of plastic stent in right hepatic duct and metal stent in CBD . Pt was started on Folfironix Keytruda Futinatinib in
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 He resumed Folfox 3 weeks ago and due again this week but held with admission. . Pt also noted with follow up imaging on 04/03
with new PE - with new start of Eliquis increased size of pancreatic mass and hepatic mets, with cont encasement and narrowing of SMV with new narrowing of proximal main portal vein and new large volume ascites. He now present with abdominal pain
and dark emesis. CT on admission concern for colonic and SB thickening and enterocolitis, large amount of ascites. Labs notable for WBC 18.8, hbg 13.3, platelets 329, Na 128, creat 1.5, lactate 5.8, bili 4.9, AST 167, ALT 128, alk phos 1005. Pt
also noted with hypotension. s/p with marked elevated WBC with concern for SBP.
-metastatic pancreatic adeno CA with mets to liver, nodes, vascular involvement
-hx prior EUS/ERCP with biliary stenting
-diffuse abdominal pain with concern for SBP
-hypotension/leukocytosis/elevated lactate with concern for sepsis
-dark emesis
-hyponatremia
-increased LFT's
-coagulopathy is setting of Eliquis use
-ROSALINO on admission
-CT with colonic and SB thickening concern for enteritis
-new ascites/LE edema
-recent PE on newly added Eliquis
-prior NSAID use
-recent diarrhea
PLAN:
+ abdominal pain with distention on admission with concern for SBP with elevated WBC's-- can also be related to malignant process with pathology pending
s/p Albumin day 1 still completing and will need further albumin Day 3
cont abx
LFT's improving
pt also with dark emesis on admission and drop in hbg was running in 11 range but now 8.6
no further vomiting or dark stools
I reviewed with Dr. Hammer -- would like to consider EGD to rule out PUD with recent steroid use vs need to consider filter
discussed with patient and significant other -- consider options and will further review with Dr. Marques for today vs tomorrow
Eliquis is due to resume tonight will need to decide if proceeding with continued use
cont to trend hbg
ok to resume panc enzymes as pt takes at home
may need repeat para as increased ascites -- discussed with Dr. Hammer for ongoing need as may be malignant ascites
Subjective
Subjective
Date of Service: April 10, 2024
abdominal pain 04/14 was 610 prior to admission, continued decreased appetite, no stools recorded
Objective
Data Reviewed
Laboratory Data:
Laboratory Results
04/10/24 06:15
04/10/24 06:15
Laboratory Results
PT 34.5 Sec (11.4-14.6) H 04/10/24 06:15
INR 3.38 04/10/24 06:15
APTT 37.4 Sec (23.4-35.0) H 04/09/24 01:44
Total Bilirubin 1.5 mg/dl (0.2-1.3) H 04/10/24 06:15
AST 44 U/L (17-59) 04/10/24 06:15
ALT 57 U/L (0-50) H 04/10/24 06:15
Alkaline Phosphatase 307 U/L (38-126) H 04/10/24 06:15
Vital Signs and I&O:
Vital Signs
Temp Pulse Resp BP Pulse Ox
97.8 F 88 17 92/59 93
04/10/24 07:55 04/10/24 07:55 04/10/24 07:55 04/10/24 07:55 04/10/24 07:55
I&O
04/09/24 04/10/24 04/11/24
06:59 06:59 06:59
Intake Total 1030 / 1030
Output Total 850 / 850
Balance 180 / 180
Physical Exam
Physical Exam
HEENT: Anicteric and Moist mucous membranes
Cardiology: Normal Sinus Rhythm
Pulmonary: Clear
GI: Soft, Distended and Tender (with mild guarding but improved from 04/09 )
Extremities: Edema
Neuro: Non Focal
[2024-04-10] MEDS: FLUSH (NSS) 1 FLUSH IV (12:01)
[2024-04-10] MEDS: ZENPEP DELAYED RELEASE CAPSULE 1 CAPSULE PO (13:14)
--- NOTE | 2024-04-10 14:27 | CON.ID ---
Consultation
-
Date/Time Consultation Requested: 04/10/24 13:59
Date/Time Consultation Performed: 04/10/24 14:28
Requesting Provider: Dr Brewer
Performing Provider: Dr Wolf
Reason for Consultation: SBP vs malignant ascites
Chief Complaint / Past History
Chief Complaint
Abdominal pain and vomiting
History of Present Illness
Mr Lopez is a 69 year old male diagnosed with pancreatic cancer with hepatic mets 11/28 s/p biliary stent placement who presented here 04/09 for 2 days of abdominal pain and vomiting. Emesis was reportedly dark. No dark stools. He saw his
oncologist and was prescribed a fentanyl patch (ordered but not yet approved by his insurance), oxycodone and antiemetics. Continued with nausea and vomiting and progressed to coffee-ground emesis. No diarrhea. No fevers, patient unsure about
chills.
Of note patient was enrolled in a clinical trial however subsequently developed severe, continuous diarrhea for several weeks and he was withdrawn from the trial. A follow up CT scan 04/03 showed progression and new large volume ascites. Then about
3 weeks ago he was started on a new regimen with Dr Horvath - MERCEDEZ on 03/13. Unfortunately diarrhea has been ongoing and patient reports he was due to start a third new regimen 04/10 (the day after admission).
Since arrival here patient has been afebrile, bp initially hypotensive responding to fluids, wbc initially 18 now 11.8, hgb initially 13 now8.6, plt 168, a left shift is noted and has persisted, eosinophils are not present, cr baseline is 0.9 - on
arrival 1.5, peaked at 2.0 and today 1.2, ua on arrival with 6-10 wbc/hpf and few bacteria, 3/5 underwent paracentesis with 5.6L of clear fluid removed, with 10K wbc and 92% PMNs, albumin <1, LDH 362, body fluid culture is no growth to date, blood
cultures x2 are no growth at 24 hours, a urine culture is in progress, pathology on the specimen is pending, patient did receive albumin on day 1 and day 3, na128 on arrival now 126, lactic acid initially 5.8 now 1.9, t bili 4.9 now 1.5, d bili 0.8,
ast now 44, alt 57, alk phos 307 - peaked at 1005, CT a/p with IV contrast: concern for enterocolitis, biliary and pancreatic stents in place, ascites progressed, suggestion of cirrhosis, patient currently on cefepime and IV metronidazole. ID is
consulted for assistance with management.
Past History
Additional Past Medical History:
Primary cancer diagnosed November 2023. Status post biliary stenting
Additional Past Surgical History:
Biliary Stenting
Port
Allergy History:
No Known Allergies Allergy (Verified 01/04/24 19:26)
Medications Reviewed: Yes
Social History
Tobacco: Non-Smoker
Alcohol: None
Drug: None
Family History
Family History: Not Pertinent
Review of Systems
Review of Systems
General: Negative Fever or Chills
All systems: All other systems were reviewed and were negative
Vital Signs
Temp Pulse Resp BP Pulse Ox
97.8 F 88 17 92/59 93
04/10/24 07:55 04/10/24 07:55 04/10/24 07:55 04/10/24 07:55 04/10/24 07:55
Physical Exam
Physical Exam
Constitutional: No Acute Distress and Chronically Ill
Cardiovascular: Regular Rate and S1/S2; Negative Murmur or Rub
Pulmonary: Clear and Symmetric; Negative Wheezes, Rales or Rhonchi
Gastrointestinal: Soft, Non Tender, Distended and Normal Bowel Sounds
Skin: Warm and Dry; Negative Rash or Jaundice
Lab / Diagnostic Study Results
04/10/24 06:15
04/10/24 06:15
Abs Immat Gran (auto) 0.1 10^3/uL (0-0.05) H 04/10/24 06:15
Absolute Neuts (auto) 10.4 10^3/uL (1.4-6.5) H 04/10/24 06:15
Absolute Lymphs (auto) 1.0 10^3/uL (1.2-3.4) L 04/10/24 06:15
Absolute Monos (auto) 0.4 10^3/uL (0.1-0.6) 04/10/24 06:15
Absolute Basos (auto) 0.0 10^3/uL (0-0.2) 04/10/24 06:15
Immature Gran % 0.6 % (0-0.5) H 04/10/24 06:15
Neutrophils % 87.5 % (42.2-75.2) H 04/10/24 06:15
Lymphocytes % 8.3 % (20.5-51.1) L 04/10/24 06:15
Monocytes % 3.4 % (1.7-9.3) 04/10/24 06:15
Eosinophils % 0.0 % (0-6) 04/10/24 06:15
Basophils % 0.2 % (0-2) 04/10/24 06:15
PT 34.5 Sec (11.4-14.6) H 04/10/24 06:15
INR 3.38 04/10/24 06:15
Lactic Acid Cancelled 04/10/24 06:00
Ur Squamous Epith Cells 0-2 /LPF (Few) 04/09/24 18:39
Microbiology Results
Micro:
04/09/24 14:17 Blood Culture - Preliminary
Blood/Venous No Growth in 24 hours- Final report to follow
04/09/24 11:02 Blood Culture - Preliminary
Blood/Venous No Growth in 24 hours- Final report to follow
04/09/24 11:53 Body Fluid Culture - Preliminary
Peritoneal Fluid No Growth After 18-24 Hours
Gram Stain - Preliminary
04/09/24 18:39 Urine Culture - Pending
Urine
Assessment / Plan
Malignant Ascites vs SBP
Likely chronic Enteritis
Pancreatic Cancer - Metastatic
Suspected Cirrhosis
- body fluid could be consistent with malignant ascites or SBP - follow up pathology
- if a repeat paracentesis is pursued would resend cell count, differential, LDH, culture could be done into a blood culture bottle to increase yield - I can assist with ordering, please notify me via tiger text if needed
- start ceftriaxone, stop cefepime
- follow up blood cultures
Chronic diarrhea
Likely chronic enteritis
- ceftriaxone as above, can continue metronidazole for present - switched to oral
- check CMV quant PCR on the blood and serology
Note that goal is currently restorative
--- NOTE | 2024-04-10 14:28 | CM ---
Patient seen at bedside IMM reviewed and signed form placed on chart. Patient family would really like pt/ot at home and CM will send request for assessment. CM will continue to follow for discharge planning needs.
Plan; home with VN pending assessment
[2024-04-10 15:05] VITALS: BP 105/68
--- NOTE | 2024-04-10 15:55 | W.PN.HOSP.TC ---
Today's Communication/Plan
-
IV antibiotics
Follow cultures ID consultation
Albumin
Stop IV fluids
Follow-up for worsening of hyponatremia
Follow hemoglobin.
IV PPI.
Hold Eliquis.
EGD in a.m.
Assessment / Plan
Assessment / Plan
Impression:
69-year-old with metastatic pancreatic cancer on chemotherapy last chemotherapy was ago presenting with abdominal distention abdominal pain nausea and vomiting. Has leukocytosis and elevated total bilirubin and alk phos. History complicated by
history of PE on Eliquis. History in addition he has severe lactic acidosis of 5.8, INR was 2.3, sodium 128. Is hemodynamically stable with somewhat soft blood pressure of 90s over 60. Suspect pain from ascites with possibility of new biliary
obstruction. UA is equivocal although is positive he does have lots of squamous cells. He has ongoing chronic diarrhea and is highly dehydrated but cannot rule out sepsis in the setting of elevated lactic acid and elevated PVCs.
Sepsis.
� Suspect intra-abdominal source, possible SBP/biliary obstruction
New onset of ascites
Elevated LFTs mixed pattern with significant bilirubinemia
Concerns for enteritis�colitis related to recent immunotherapy
Acute kidney injury.
Lactic acidosis.
Hypovolemic hyponatremia.
Reported dark emesis on admission
Conditions prior to admission:
Metastatic pancreatic adenocarcinoma with hepatic mets, vascular involvement
Biliary stent in place
Status post Folfironix Keytruda Futinatinib
Reported associated colitis requiring Remicade
Recently on trial therapy
Recent diagnosis of pulmonary embolism initiated on Eliquis
04/09/24 CT A/p
Appearance of colonic and small bowel wall thickening concerning for enterocolitis. New. Findings due to limited distention cannot be completely excluded. Limited exam without oral contrast.
Findings consistent with known pancreatic head mass. . Stable
Hypodense hepatic lesions consistent with known hepatic metastasis. Stable.
Pneumobilia. Improved. Biliary and pancreatic stents. Stable.
Large amount of abdominopelvic ascites. Progressed.
Hepatic fatty infiltration. Stable
Nodular hepatic margin suggesting cirrhosis. Stable.
Findings suggesting mild volume overload or third spacing. Stable
Small left renal cysts. Stable.
Mild diverticulosis. Stable
04/03/24 CT Chest/abd/pel W Iv Cont
1. There are new pulmonary emboli involving the right interlobar artery and truncus anterior which extend into the right segmental pulmonary arteries. There is a left lower lobe lobar embolus which extends into 2 lower lobe segmental pulmonary
arteries.
2. There is increased size of the hypoattenuating mass within the pancreatic head which measures up to 5.0 cm, previously 4.7 cm. There is persistent encasement and narrowing of the superior mesenteric artery and vein. There is new narrowing of the
proximal main portal vein.
3. Increased size of the hepatic metastasis with new metastasis including a 4.0 cm lesion in the caudate lobe.
4. New large volume ascites.
Plan:
Sepsis/SIRS
Septic shock with hypotension
Hypotension likely multifactorial due to severe dehydration and possible infection
Suspect biliary source or SBP. New onset of ascites.
Status post paracentesis / 6500 mL with elevated PMN count. Elevated white count in ascitic fluid could be related to malignant ascites versus SBP
There is a concern for enterocolitis related to immunotherapy.
Reports improved diarrhea
Blood culture negative to date
Ascitic fluid with pending Gram stain and cultures negative to date
Continue broad-spectrum antibiotics
ID consultation
Acute kidney injury
Hyponatremia
Hypovolemic hyponatremia.
Lactic acidosis.
Bladder scan with no retention
Low urine sodium with increased urine osm likely consistent with volume depletion as well as component of ADH
Creatinine trending down with volume expansion
Continue albumin
Hold off on further IV fluids while on albumin
Follow serial BMP and lactic acid level
Reported hematemesis on admission
Monitor for recurrence he.
Hemoglobin trending down from 13-8.6. Likely dilutional with volume expansion although could not rule out gastrointestinal hemorrhage
IV PPI.
Hold Eliquis
For EGD on 04/11
Recent diagnosis of pulmonary embolism
Initiated on Eliquis on 04/03
Hold anticoagulation acutely given above issues including possible need for endoscopic evaluation and stent exchange as well as episode of hematemesis per
If prolonged period of time without oral anticoagulation, consider heparin bridge or IVC interruption.
Anticipated Discharge: > 48 hours
Subjective/Interval History
-
Date of Service: April 10, 2024
Objective Data
-
Labs:
Laboratory Results
04/10/24
06:15
WBC 11.8 H
Hgb 8.6 L D
Hct 25.0 L
Plt Count 168 D
PT 34.5 H
INR 3.38
Sodium 126 L
Potassium 4.6
Chloride 100
Carbon Dioxide 24
BUN 31 H
Creatinine 1.2
Glucose 130 H
Calcium 7.9 L
Total Bilirubin 1.5 H
AST 44
ALT 57 H
Alkaline Phosphatase 307 H
Vital Signs:
Vital Signs
Temp Pulse Resp BP Pulse Ox
98.6 F 91 16 105/68 93
04/10/24 15:05 04/10/24 15:05 04/10/24 15:05 04/10/24 15:05 04/10/24 15:05
I&O
04/09/24 04/10/24 04/11/24
06:59 06:59 06:59
Intake Total 1030 / 1030
Output Total 850 / 850
Balance 180 / 180
Physical Exam
-
General: Well Developed and No Apparent Distress
HEENT: Normocephalic, Atraumatic and Moist Mucous Membranes
Respiratory: Clear to Auscultation
Cardiac: Regular Rhythm and S1/S2; Negative Murmur, Rub or Gallop
GI: Soft, Nontender, Nondistended and Normal Bowel Sounds; Negative Organomegaly
Rectal: Deferred by Provider
Musculoskeletal: No Clubbing, No Cyanosis and No Edema
Skin: Negative Rash
Neuro: Nonfocal/Grossly Intact
--- NOTE | 2024-04-10 16:08 | PN.CDI ---
CDI
- -
CDI:
Physician Documentation Request
Admit Date: 04/09/24 04:20
Dear Doctor /SEAMING INSPECTOR,
Please review the following and provide your response in the progress notes.
Clinical Indicators:
Pt admitted with Sepsis 2/2 possible SBP vs biliary source /Pancreatic cancer with mets
GI progress note 04/10 , ' Hgb dropped to 8 today. Hematology wishes to resume anticoagulation for PE, but need to r/o UGIB.Plan EGD tomorrow. I held eliquis...pt also with dark emesis on admission and drop in hbg was running in 11 range but now
8.6...'
Oncology consult 04/10,'Likely upper GI bleed with emesis of coffee grounds..Anemia with 5 g drop now 8.6 g/dL....'
04/09/24 04/10/24
01:44 06:15
Hgb 13.3 8.6 L D
Hct 39.4 25.0 L
Please provide a diagnosis or the above finding:
Acute blood loss anemia
Drop in HGB only
Other ( please specify)
Use of terms such as suspected, likely, concern for, or probable (associated with a specific diagnosis that is being evaluated, monitored, or treated as if it exists) are acceptable and can be coded in the inpatient setting, when documented at the
time of discharge.
Thank you,
Ramona Couch RN
CDI Specialist
[place] [facility]
Please use your independent medical judgment in providing your response.
[2024-04-10] MEDS: ROCEPHIN 2000 MG IV (17:10)
[2024-04-10] MEDS: STERILE WATER FOR INJECTION 20 ML IV (17:11)
[2024-04-10] MEDS: ZENPEP DELAYED RELEASE CAPSULE PO ×2 (18:02→18:03)
[2024-04-10] MEDS: FLAGYL 500 MG PO (21:28)
[2024-04-10] MEDS: TYLENOL 650 MG PO (21:39)
[2024-04-10 23:50] VITALS: BP 96/66
[2024-04-10 23:55] VITALS: BP 100/58
[2024-04-11] VITALS (8 sets, daily range): BP systolic 16–111; BP diastolic 59–76
[2024-04-11] MEDS: FLAGYL 500 MG PO ×3 (05:12→21:45)
[2024-04-11 05:33] LABS: % Basophils 0.1 % (0-2); % Eosinophils 0.1 % (0-6); % Immature Granulocytes 1.7 % (0-0.5); % Lymphocytes 6.4 % (20.5-51.1); % Monocytes 4.1 % (1.7-9.3); % Neutrophils 87.6 % (42.2-75.2); Absolute Immature Granulocytes 0.2 10^3/uL (0-0.05); Absolute Lymphocytes 0.9 10^3/uL (1.2-3.4); Absolute Monocytes 0.6 10^3/uL (0.1-0.6); Absolute Neutrophils 11.8 10^3/uL (1.4-6.5); Hematocrit 25.1 % (39.0-52.0); Hemoglobin 8.8 g/dL (13.0-18.0); Mean Corp Hgb Conc. 35.1 g/dL (33.0-37.0); Mean Corpuscular Hgb 32.6 pg (27.0-31.0); Mean Platelet Volume 10.3 fL (7.4-10.4); Nucleated Red Blood Cells % 0 % (-); Platelet Count 161 10^3/uL (130-400); Red Cell Dist. Width 13.4 % (11.5-14.5); White Blood Cell Count 13.5 10^3/uL (4.8-10.8)
[2024-04-11 06:41] LABS: ALT (SGPT) 43 U/L (0-50); AST (SGOT) 38 U/L (17-59); Albumin 2.3 g/dl (3.5-5.0); Alkaline Phosphatase 296 U/L (38-126); Blood Urea Nitrogen 21 mg/dl (9-20); Carbon Dioxide 23 mmol/L (22-30); Chloride 98 mmol/L (98-107); Estimated Creatinine Clearance 86 ml/min; Glucose 92 mg/dl (70-99); Potassium 4.1 mmol/L (3.5-5.1); Sodium 128 mmol/L (135-145); Total Bilirubin 1.2 mg/dl (0.2-1.3); Total Protein 4.9 g/dl (6.3-8.2); eGFR > 60.00
[2024-04-11] MEDS: ZENPEP DELAYED RELEASE CAPSULE PO ×2 (07:54→18:04)
[2024-04-11] MEDS: FLEXBUMIN 300 IV (08:39)
[2024-04-11] MEDS: PROTONIX IV 40 MG IV (08:41)
[2024-04-11] MEDS: NSS (PRESERVATIVE FREE) 10 ML IV (08:41)
--- NOTE | 2024-04-11 10:23 | CM ---
Addendum entered by Heena Arambula 04/11/24 13:29:
Patient asking CM for palliative care consult as well as VN/PT/OT, CM sent tt to physician and patient does not have home O2. CM will continue to follow for discharge planning needs.
Original Note:
Patient at bedside in tears, emotional supports provided. Patient out of room at this time. Patient and continue to ask for supports from VN when discharged, no PT/OT ordered. physician aware of patient request. CM will continue to follow
for discharge planning needs.
Plan; home with VN vs home with no needs.
--- NOTE | 2024-04-11 10:36 | W.PN.ONC2 ---
Today's Communication / Plan
-
.
Impression
Impression
metastatic pancreatic cancer
Symptomatic ascites s/p therapeutic/diagnostic para 04/09 -[id number]
ABLA secondary to UGIB -EGD w coffee ground, Multiple diffuse erosions in the duodenum edema and erythema and some oozing on contact
Pulmonary emboli dx 04/03/[address]
Plan
Plan
follow gastric bx pathology
follow ascites cultures,negative to date. Follow ascites cytology. discussed need for prn para upon discharge through our office
AC on hold, defer to GI for safety of resumption
trend coags and CBC
IVC filter while off AC
on PPI
on IVabx
Reviewed comfort focused vs palliative care. Goals of care restorative. He is yet to have a significant opportunity for systemic therapy. Consult palliative care
Optimize PS, nutrition -PT, OT, dietary
Subjective/Objective
Subjective
no new complaints
Vital Signs:
Vital Signs
Temp Pulse Resp BP Pulse Ox
98.2 F 85 16 101/65 99
04/11/24 10:30 04/11/24 10:30 04/11/24 10:30 04/11/24 10:30 04/11/24 10:30
Lab Results:
Laboratory Data
WBC 13.5 10^3/uL (4.8-10.8) H 04/11/24 05:00
Hgb 8.8 g/dL (13.0-18.0) L 04/11/24 05:00
Plt Count 161 10^3/uL (130-400) 04/11/24 05:00
PT 34.5 Sec (11.4-14.6) H 04/10/24 06:15
INR 3.38 04/10/24 06:15
APTT 37.4 Sec (23.4-35.0) H 04/09/24 01:44
eGFR > 60.00 04/11/24 05:00
Physical Exam
HEENT: Moist Mucous Membranes; No Jaundice
Cardiology: Normal Sinus Rhythm
Pulmonary: Clear
GI: Soft and Distended
Extremities: Pulses Present; No Edema
Neuro: Non Focal
[2024-04-11] MEDS: ZENPEP DELAYED RELEASE CAPSULE 1 CAPSULE PO ×2 (13:49→21:45)
--- NOTE | 2024-04-11 14:12 | W.CON.PAL ---
Consultation
-
Date/Time Consultation Requested: 04/11
Date/Time Consultation Performed: 04/11
Requesting Provider: Daniella
Performing Provider: Bernarda DARLING
Reason for Consult: Goals of Care Discussion
Primary Diagnosis: pancreatic cancer
Reason for Admission
Illness Course/HPI
69 year old M with PMH of metastatic pancreatic cancer (liver, vascular mets) dx November 2023 s/p biliary stent placement admitted with increasing abdominal discomfort and new ascites.
In terms of oncology treatment, received an initial systemic treatment with clinical trial s/p 3 cycles (last 01/2024) c/b intractable colitis s/p 2 cycles of Remicade and aggressive support. Started on creon with some improvement in diarrhea.
Unfortunately, recent CT scan for restaging purposes revealed evidence of large burden PE and evidence of progressive disease. Started Eliquis for PE.
Admitted to ED with sudden onset of worsening discomfort and episodes of coffee-ground emesis. Also with ascites s/p paracentesis, c/f SBP vs malignancy ascites, still pending but on ABX. ID following. Eliquis reversed with no additional episodes of
coffee-ground emesis. Per oncology, he was planned to start second line chemo this week but his performance status has steadily declined so this was deferred.
Oncology spoke with patient about palliative/hospice vs restorative treatment. Goals remain restorative at this time.
Seen at bedside with significant other and 2 sons present. Discussed role of PC service. They are interested in following as an outpatient. Their goals are to hopefully get him back to treatment once he gets PT/OT. Thankfully his symptoms are well
managed at this time.
Goals of Care Discussion
-
Individuals Present for Discussion & Relationship to Patient:
see hpi
Objective Data
-
Objective Data:
Vital Signs
Temp Pulse Resp BP Pulse Ox
98.2 F 85 16 101/65 99
04/11/24 10:30 04/11/24 10:30 04/11/24 10:30 04/11/24 10:30 04/11/24 12:59
Laboratory Results
04/11/24 05:00
04/11/24 05:00
PT 34.5 Sec (11.4-14.6) H 04/10/24 06:15
INR 3.38 04/10/24 06:15
APTT 37.4 Sec (23.4-35.0) H 04/09/24 01:44
Total Protein 4.9 g/dl (6.3-8.2) L 04/11/24 05:00
Albumin 2.3 g/dl (3.5-5.0) L 04/11/24 05:00
Urine Color [place] 04/09/24 18:39
Urine Clarity Clear (Clear) 04/09/24 18:39
Urine pH 5.0 (5.0-9.0) 04/09/24 18:39
Ur Specific [place] 1.020 (<1.030) 04/09/24 18:39
Urine Ketones 1+ (Negative) A 04/09/24 18:39
Urine Bilirubin 1+ (Negative) A 04/09/24 18:39
Palliative Performance Scale
Palliative Performance Scale:
PPS Level Ambulation Activity & Evidence of Disease Self Care Intake Conscious Level
100% Full Normal Activity & Work; Full Intake Full
No Evidence of Disease
90% Full Normal Activity & Work; Full Normal Full
Some Evidence of Disease
80% Full Normal Activity with Effort Full Normal or Full
Some Evidence of Disease Reduced
70% Reduced Unable Normal Job/Work Full Normal or Full
Significant Disease Reduced
60% Reduced Unable Hobby/Housework Occasional Normal or Full or Confusion
Significant Disease Assistance Reduced
50% Mainly Sit/Lie Unable to do Any Work Considerable Normal or Full or Confusion
Extensive Disease Assistance Req'd Reduced
40% Mainly in Bed Unable to do Most Activity Mainly Assistance Normal or Full or Drowsy;
Extensive Disease Reduced +/- Confusion
30% Totally Bed Unable to do Any Activity Total Care Normal or Full or Drowsy;
Bound Extensive Disease Reduced +/- Confusion
20% Totally Bed Bound Unable to do Any Activity Total Care Minimal to Full or Drowsy;
Extensive Disease Sips +/- Confusion
10% Totally Bed Bound Unable to do Any Activity Total Care Mouth Care Drowsy or Coma;
Extensive Disease Only +/- Confusion
0%
PPS Score Level:
Assessment / Plan
-
Assessment/Plan:
69 year old M with metastatic pancreatic cancer
- goals are treatment oriented
- plan for home with PT/OT this or sunday. Wants to get more treatment if able to do so.
- interested in outpatient palliative follow up - info provided
Care Reviewed
Data Reviewed
Radiology procedure: Image Reviewed
Medical Tests: I reviewed
Reviewed with: Patient, Family and Physician
--- NOTE | 2024-04-11 14:42 | W.PN.ID1 ---
Date of Service
Date of Service: April 11, 2024
Today's Communication
- ceftriaxone as above, can continue metronidazole for present - switched to oral
- check CMV quant PCR on the blood and serology
Assessment / Plan
Malignant Ascites vs SBP
Likely chronic Enteritis
Pancreatic Cancer - Metastatic
Suspected Cirrhosis
- body fluid could be consistent with malignant ascites or SBP - follow up pathology
- if a repeat paracentesis is pursued would resend cell count, differential, LDH, culture could be done into a blood culture bottle to increase yield - I can assist with ordering, please notify me via tiger text if needed
- c/w ceftriaxone
- follow up blood cultures
Chronic diarrhea
Likely chronic enteritis
- ceftriaxone as above, can continue metronidazole for present - switched to oral
- check CMV quant PCR on the blood and serology
Note that goal is currently restorative
Chief Complaint
-: Other (sbp vs malignant ascites)
Subjective / Review of Systems
remains afebrile
bp stable
EGD with multiple erosions in the duodenum
Vital Signs / Physical Exam
Vital Signs
Vital Signs
Temp Pulse Resp BP Pulse Ox
98.2 F 85 16 101/65 99
04/11/24 10:30 04/11/24 10:30 04/11/24 10:30 04/11/24 10:30 04/11/24 12:59
Physical Exam
Constitutional: No Acute Distress and Chronically Ill
Cardiovascular: Regular Rate and S1/S2; Negative Murmur or Rub
Pulmonary: Clear and Symmetric; Negative Wheezes or Rales
Gastrointestinal: Soft, Non Tender, Non Distended and Normal Bowel Sounds
Skin: Warm and Dry; Negative Rash or Jaundice
Objective Data
Lab Data
Lab Results
04/11/24 05:00
04/11/24 05:00
PT 34.5 Sec (11.4-14.6) H 04/10/24 06:15
INR 3.38 04/10/24 06:15
APTT 37.4 Sec (23.4-35.0) H 04/09/24 01:44
Estimated Creat Clear 86 ml/min 04/11/24 05:00
Lactic Acid Cancelled 04/10/24 06:00
Total Bilirubin 1.2 mg/dl (0.2-1.3) 04/11/24 05:00
AST 38 U/L (17-59) 04/11/24 05:00
ALT 43 U/L (0-50) 04/11/24 05:00
Alkaline Phosphatase 296 U/L (38-126) H 04/11/24 05:00
Most recent labs reviewed.
Micro Results:
04/09/24 14:17 Blood Culture - Preliminary
Blood/Venous No Growth in 48 hours- Final report to follow
04/09/24 11:53 Body Fluid Culture - Preliminary
Peritoneal Fluid No Growth After 48 Hours
Gram Stain - Preliminary
04/09/24 18:39 Urine Culture - Final
Urine NO GROWTH
04/09/24 11:02 Blood Culture - Preliminary
Blood/Venous No Growth in 48 hours- Final report to follow
--- NOTE | 2024-04-11 16:04 | W.PN.HOSP.TC ---
Today's Communication/Plan
-
IV antibiotics.
Consider to repeat paracentesis.
Hold anticoagulation
IV PPI taken duodenal ulcer.
IVC filter
Assessment / Plan
Assessment / Plan
Impression:
69-year-old with metastatic pancreatic cancer on chemotherapy last chemotherapy was ago presenting with abdominal distention abdominal pain nausea and vomiting. Has leukocytosis and elevated total bilirubin and alk phos. History complicated by
history of PE on Eliquis. History in addition he has severe lactic acidosis of 5.8, INR was 2.3, sodium 128. Is hemodynamically stable with somewhat soft blood pressure of 90s over 60. Suspect pain from ascites with possibility of new biliary
obstruction. UA is equivocal although is positive he does have lots of squamous cells. He has ongoing chronic diarrhea and is highly dehydrated but cannot rule out sepsis in the setting of elevated lactic acid and elevated PVCs.
Sepsis.
� Suspect intra-abdominal source, possible SBP/biliary obstruction
New onset of ascites suspect malignant with possible SBP
Elevated LFTs mixed pattern with significant bilirubinemia
Concerns for enteritis�colitis related to recent immunotherapy
Hematemesis on presentation.
Acute blood loss anemia
Acute kidney injury.
Lactic acidosis.
Hypovolemic hyponatremia.
Conditions prior to admission:
Metastatic pancreatic adenocarcinoma with hepatic mets, vascular involvement
Biliary stent in place
Status post Folfironix Keytruda Futinatinib
Reported associated colitis requiring Remicade
Recently on trial therapy
Recent diagnosis of pulmonary embolism initiated on Eliquis
04/09/24 CT A/p
Appearance of colonic and small bowel wall thickening concerning for enterocolitis. New. Findings due to limited distention cannot be completely excluded. Limited exam without oral contrast.
Findings consistent with known pancreatic head mass. . Stable
Hypodense hepatic lesions consistent with known hepatic metastasis. Stable.
Pneumobilia. Improved. Biliary and pancreatic stents. Stable.
Large amount of abdominopelvic ascites. Progressed.
Hepatic fatty infiltration. Stable
Nodular hepatic margin suggesting cirrhosis. Stable.
Findings suggesting mild volume overload or third spacing. Stable
Small left renal cysts. Stable.
Mild diverticulosis. Stable
04/03/24 CT Chest/abd/pel W Iv Cont
1. There are new pulmonary emboli involving the right interlobar artery and truncus anterior which extend into the right segmental pulmonary arteries. There is a left lower lobe lobar embolus which extends into 2 lower lobe segmental pulmonary
arteries.
2. There is increased size of the hypoattenuating mass within the pancreatic head which measures up to 5.0 cm, previously 4.7 cm. There is persistent encasement and narrowing of the superior mesenteric artery and vein. There is new narrowing of the
proximal main portal vein.
3. Increased size of the hepatic metastasis with new metastasis including a 4.0 cm lesion in the caudate lobe.
4. New large volume ascites.
Plan:
Sepsis/SIRS
Septic shock with hypotension likely multifactorial due to dehydration and possible SBP
Suspect biliary source or SBP. New onset of ascites.
Status post paracentesis 04/09 6500 mL with elevated PMN count. Elevated white count in ascitic fluid could be related to malignant ascites versus SBP
There is a concern for enterocolitis related to immunotherapy.
Reports improved diarrhea
Blood culture negative to date
Ascitic fluid with pending Gram stain and cultures negative to date
Antibiotics consolidated to ceftriaxone
ID consultation appreciated
Acute kidney injury
Hyponatremia
Hypovolemic hyponatremia.
Lactic acidosis.
Bladder scan with no retention
Low urine sodium with increased urine osm likely consistent with volume depletion as well as component of ADH
Creatinine trending down with volume expansion
Completed course of albumin
Hold further IV fluids and monitor oral intake and sodium level
Follow serial BMP and lactic acid level
Hematemesis upon presentation.
EGD 04/11 with duodenal ulcer nonbleeding, erosive
Diet has been advanced
Hold anticoagulation as recommended
Continue IV PPI
Acute anemia secondary to blood loss as well as dilutional hemoglobin trending down 13.3�8.8
Follow CBC
Recent diagnosis of pulmonary embolism
Initiated on Eliquis on 04/03
Has been off anticoagulation since admission due to hematemesis
[facility] consultation for IVC filter
Metastatic pancreatic carcinoma with biliary obstruction
New onset of likely malignant ascites
Monitor for reaccumulation.
Consider to repeat paracentesis
Consider Pleurx prior to discharge
Goals of care discussion with patient, significant nausea and the rest of the family at the bedside.
Palliative service consult
Full code
Anticipated Discharge: 24 - 48 hours
Subjective/Interval History
-
Date of Service: April 11, 2024
Objective Data
-
Labs:
Laboratory Results
04/11/24
05:00
WBC 13.5 H
Hgb 8.8 L
Hct 25.1 L
Plt Count 161
Sodium 128 L
Potassium 4.1
Chloride 98
Carbon Dioxide 23
BUN 21 H
Creatinine 0.9
Glucose 92
Calcium 8.0 L
Total Bilirubin 1.2
AST 38
ALT 43
Alkaline Phosphatase 296 H
Vital Signs:
Vital Signs
Temp Pulse Resp BP Pulse Ox
99.7 F 88 16 111/76 93
04/11/24 15:52 04/11/24 15:52 04/11/24 15:52 04/11/24 15:52 04/11/24 15:52
I&O
04/10/24 04/11/24 04/12/24
06:59 06:59 06:59
Intake Total 1030 / 1030 240 / 240
Output Total 850 / 850 300 / 300
Balance 180 / 180 -60 / -60
Physical Exam
-
General: Well Developed and No Apparent Distress
HEENT: Normocephalic, Atraumatic and Moist Mucous Membranes
Respiratory: Clear to Auscultation
Cardiac: Regular Rhythm and S1/S2; Negative Murmur, Rub or Gallop
GI: Soft, Nontender, Nondistended and Normal Bowel Sounds; Negative Organomegaly
Rectal: Deferred by Provider
Musculoskeletal: No Clubbing, No Cyanosis and No Edema
Skin: Negative Rash
Neuro: Nonfocal/Grossly Intact
[2024-04-11] MEDS: BENADRYL 25 MG PO (18:13)
[2024-04-11] MEDS: ROCEPHIN 2000 MG IV (18:19)
[2024-04-11] MEDS: STERILE WATER FOR INJECTION 20 ML IV (18:19)
[2024-04-12] MEDS: FLAGYL 500 MG PO ×3 (06:32→21:06)
[2024-04-12 07:40] VITALS: BP 92/67
[2024-04-12] MEDS: ZENPEP DELAYED RELEASE CAPSULE 1 CAPSULE PO ×4 (08:19→21:06)
[2024-04-12] MEDS: NSS (PRESERVATIVE FREE) 10 ML IV (08:19)
[2024-04-12] MEDS: PROTONIX IV 40 MG IV (08:20)
[2024-04-12 08:42] LABS: % Basophils 0.1 % (0-2); % Eosinophils 0.1 % (0-6); % Immature Granulocytes 0.7 % (0-0.5); % Lymphocytes 6.4 % (20.5-51.1); % Monocytes 5.4 % (1.7-9.3); % Neutrophils 87.3 % (42.2-75.2); Absolute Immature Granulocytes 0.1 10^3/uL (0-0.05); Absolute Monocytes 0.8 10^3/uL (0.1-0.6); Absolute Neutrophils 13.4 10^3/uL (1.4-6.5); Hemoglobin 9.2 g/dL (13.0-18.0); Mean Corp Hgb Conc. 32.9 g/dL (33.0-37.0); Mean Corpuscular Hgb 31.3 pg (27.0-31.0); Mean Corpuscular Volume 95.2 fL (80.0-94.0); Mean Platelet Volume 10.3 fL (7.4-10.4); Nucleated Red Blood Cells % 0 % (-); Platelet Count 180 10^3/uL (130-400); Red Blood Cell Count 2.94 10^6/uL (4.70-6.10); Red Cell Dist. Width 13.5 % (11.5-14.5); White Blood Cell Count 15.4 10^3/uL (4.8-10.8)
[2024-04-12 08:46] LABS: APTT 36.2 Sec (23.4-35.0); INR 1.91; PT 22.1 Sec (11.4-14.6)
--- NOTE | 2024-04-12 08:59 | W.PN.GI.CBS2 ---
Addendum entered and electronically signed by Jacinto Pickard MD 04/12/24 10:15:
I saw and examined the patient.
The HVAC OPERATIONS TECHNICIAN or PA's note was reviewed and I agree with the note.
Comment:
Pt had some loose stool; night nurse said blu like not melena, no abdominal pain
abd: nontender
oriented
hgb stable
can restart eliquis sunday if stable
continue PPI
ascites w/u in progress
Original Note:
Today's Communication / Plan
-
Hgb stable, continue IV PPI twice daily
Assessment / Plan
-
Pt is a 69yo with hx pancreatic CA with mets to liver/lymph nodes diagnosed in November 2023. At diagnosis pt completed EUS with [id number] with evidence for vascular involvement with invasion into SMA with encasement with mets and enlarged fernando
hepatis nodes. ERCP completed with severe biliary stricture in middle third of main bile duct with sphincterotomy and placement of plastic stent in right hepatic duct and metal stent in CBD . Pt was started on Folfironix Keytruda Futinatinib in
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 He resumed Folfox 3 weeks ago and due again this week but held with admission. . Pt also noted with follow up imaging on 04/03
with new PE - with new start of Eliquis increased size of pancreatic mass and hepatic mets, with cont encasement and narrowing of SMV with new narrowing of proximal main portal vein and new large volume ascites. He now present with abdominal pain
and dark emesis. CT on admission concern for colonic and SB thickening and enterocolitis, large amount of ascites. Labs notable for WBC 18.8, hbg 13.3, platelets 329, Na 128, creat 1.5, lactate 5.8, bili 4.9, AST 167, ALT 128, alk phos 1005. Pt
also noted with hypotension. s/p with marked elevated WBC with concern for SBP.
-metastatic pancreatic adeno CA with mets to liver, nodes, vascular involvement
-hx prior EUS/ERCP with biliary stenting
-diffuse abdominal pain with concern for SBP
-hypotension/leukocytosis/elevated lactate with concern for sepsis
-dark emesis
-hyponatremia
-increased LFT's
-coagulopathy is setting of Eliquis use
-ROSALINO on admission
-CT with colonic and SB thickening concern for enteritis
-new ascites/LE edema
-recent PE on newly added Eliquis
-prior NSAID use
-recent diarrhea
PLAN:
+ abdominal pain with distention on admission with concern for SBP with elevated WBC's-- can also be related to malignant process with pathology pending
s/p Albumin day 1 still completing and will need further albumin Day 3
cont abx
LFT's improving
pt with dark emesis on admission and drop in hbg (was running in 11 range)
no further vomiting or dark stools
s/p EGD 04/11/24 with duodenal erosions, would NOT restart Eliquis at this time
IV PPI BID
cont to trend hbg, stable at 9.2 today
Subjective
Subjective
Date of Service: April 12, 2024
Feeling OK. Had endoscopy yesterday with Dr. Pickard, with duodenal erosions and recommendation NOT to restart Eliquis for now. PPI IV BID.
Hgb stable today, 9.2
Objective
Data Reviewed
Laboratory Data:
Laboratory Results
04/12/24 08:02
Laboratory Results
PT 22.1 Sec (11.4-14.6) H 04/12/24 08:02
INR 1.91 04/12/24 08:02
APTT 36.2 Sec (23.4-35.0) H 04/12/24 08:02
Total Bilirubin 1.2 mg/dl (0.2-1.3) 04/11/24 05:00
AST 38 U/L (17-59) 04/11/24 05:00
ALT 43 U/L (0-50) 04/11/24 05:00
Alkaline Phosphatase 296 U/L (38-126) H 04/11/24 05:00
Vital Signs and I&O:
Vital Signs
Temp Pulse Resp BP Pulse Ox
99.7 F 88 16 92/67 92
04/12/24 07:40 04/12/24 07:40 04/12/24 07:40 04/12/24 07:40 04/12/24 07:40
I&O
04/11/24 04/12/24 04/13/24
06:59 06:59 07:59
Intake Total 240 / 240
Output Total 300 / 300 200 / 200
Balance -60 / -60 -200 / -200
Physical Exam
Physical Exam
Cardiology: Normal Sinus Rhythm
Pulmonary: Clear
GI: Soft, Non Tender and Normal Bowel Sounds
[2024-04-12 09:35] VITALS: BP 106/80; BP_SYST 87
[2024-04-12 09:42] LABS: ALT (SGPT) 36 U/L (0-50); AST (SGOT) 43 U/L (17-59); Albumin 2.9 g/dl (3.5-5.0); Alkaline Phosphatase 523 U/L (38-126); Blood Urea Nitrogen 18 mg/dl (9-20); Calcium 8.3 mg/dl (8.4-10.2); Carbon Dioxide 24 mmol/L (22-30); Chloride 96 mmol/L (98-107); Estimated Creatinine Clearance 97 ml/min; Glucose 81 mg/dl (70-99); Sodium 130 mmol/L (135-145); Total Bilirubin 1.7 mg/dl (0.2-1.3); Total Protein 5.6 g/dl (6.3-8.2); eGFR > 60.00
[2024-04-12 10:33] VITALS: BP 112/77
--- NOTE | 2024-04-12 11:08 | W.PN.HOSP.TC ---
Today's Communication/Plan
-
follow LFT as bili elevated
Assessment / Plan
Assessment / Plan
Impression:
69-year-old with metastatic pancreatic cancer on chemotherapy last chemotherapy was ago presenting with abdominal distention abdominal pain nausea and vomiting. Has leukocytosis and elevated total bilirubin and alk phos. History complicated by
history of PE on Eliquis. History in addition he has severe lactic acidosis of 5.8, INR was 2.3, sodium 128. Is hemodynamically stable with somewhat soft blood pressure of 90s over 60. Suspect pain from ascites with possibility of new biliary
obstruction. UA is equivocal although is positive he does have lots of squamous cells. He has ongoing chronic diarrhea and is highly dehydrated but cannot rule out sepsis in the setting of elevated lactic acid and elevated PVCs.
Sepsis.
� Suspect intra-abdominal source, possible SBP/biliary obstruction
New onset of ascites suspect malignant with possible SBP
Elevated LFTs mixed pattern with significant bilirubinemia
Concerns for enteritis�colitis related to recent immunotherapy
Hematemesis on presentation.
Acute blood loss anemia
Acute kidney injury.
Lactic acidosis.
Hypovolemic hyponatremia.
Conditions prior to admission:
Metastatic pancreatic adenocarcinoma with hepatic mets, vascular involvement
Biliary stent in place
Status post Folfironix Keytruda Futinatinib
Reported associated colitis requiring Remicade
Recently on trial therapy
Recent diagnosis of pulmonary embolism initiated on Eliquis
04/09/24 CT A/p
Appearance of colonic and small bowel wall thickening concerning for enterocolitis. New. Findings due to limited distention cannot be completely excluded. Limited exam without oral contrast.
Findings consistent with known pancreatic head mass. . Stable
Hypodense hepatic lesions consistent with known hepatic metastasis. Stable.
Pneumobilia. Improved. Biliary and pancreatic stents. Stable.
Large amount of abdominopelvic ascites. Progressed.
Hepatic fatty infiltration. Stable
Nodular hepatic margin suggesting cirrhosis. Stable.
Findings suggesting mild volume overload or third spacing. Stable
Small left renal cysts. Stable.
Mild diverticulosis. Stable
04/03/24 CT Chest/abd/pel W Iv Cont
1. There are new pulmonary emboli involving the right interlobar artery and truncus anterior which extend into the right segmental pulmonary arteries. There is a left lower lobe lobar embolus which extends into 2 lower lobe segmental pulmonary
arteries.
2. There is increased size of the hypoattenuating mass within the pancreatic head which measures up to 5.0 cm, previously 4.7 cm. There is persistent encasement and narrowing of the superior mesenteric artery and vein. There is new narrowing of the
proximal main portal vein.
3. Increased size of the hepatic metastasis with new metastasis including a 4.0 cm lesion in the caudate lobe.
4. New large volume ascites.
Plan:
Sepsis/SIRS
Septic shock with hypotension likely multifactorial due to dehydration and possible SBP
Suspect biliary source or SBP. New onset of ascites.
Status post paracentesis 04/09 6500 mL with elevated PMN count. Elevated white count in ascitic fluid could be related to malignant ascites versus SBP SAAG>1.1 - transudate with low protein, most likely hepatic origin, path pending
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
Reports improved diarrhea
Blood culture negative to date
Ascitic fluid with pending Gram stain and cultures negative to date
Antibiotics consolidated to ceftriaxone
ID consultation appreciated
Acute kidney injury
Hyponatremia
Hypovolemic hyponatremia.
Lactic acidosis.
Bladder scan with no retention
Low urine sodium with increased urine osm likely consistent with volume depletion as well as component of ADH
Creatinine trending down with volume expansion
Completed course of albumin
Hold further IV fluids and monitor oral intake and sodium level
Follow serial BMP and lactic acid level
Hematemesis upon presentation.
EGD 04/11 with duodenal ulcer nonbleeding, erosive
Diet has been advanced
Hold anticoagulation as recommended
Continue IV PPI
Acute anemia secondary to blood loss as well as dilutional hemoglobin trending down 13.3�8.8
Follow CBC
Recent diagnosis of pulmonary embolism
Initiated on Eliquis on 04/03
Has been off anticoagulation since admission due to hematemesis
[employer] placed IVC filter on 04/12/24
Metastatic pancreatic carcinoma with biliary obstruction
New onset of likely malignant ascites
Monitor for reaccumulation.
Consider to repeat paracentesis
Consider Pleurx prior to discharge
Follow LFT
Palliative service consult
Full code
Anticipated Discharge: 24 - 48 hours
Subjective/Interval History
-
Date of Service: April 12, 2024
Objective Data
-
Labs:
Laboratory Results
04/12/24
08:02
WBC 15.4 H
Hgb 9.2 L
Hct 28.0 L
Plt Count 180
PT 22.1 H
INR 1.91
APTT 36.2 H
Sodium 130 L
Potassium 4.0
Chloride 96 L
Carbon Dioxide 24
BUN 18
Creatinine 0.8
Glucose 81
Calcium 8.3 L
Total Bilirubin 1.7 H
AST 43
ALT 36
Alkaline Phosphatase 523 H
Vital Signs:
Vital Signs
Temp Pulse Resp BP Pulse Ox
98.9 F 86 16 112/77 90
04/12/24 09:35 04/12/24 10:33 04/12/24 10:33 04/12/24 10:33 04/12/24 09:35
I&O
04/11/24 04/12/24 04/13/24
06:59 06:59 07:59
Intake Total 240 / 240
Output Total 300 / 300 200 / 200
Balance -60 / -60 -200 / -200
Review of Systems
-
History Source: Patient
All other systems: Reviewed and negative
Physical Exam
-
General: No Apparent Distress and Cachectic
Neuro: Awake, Alert, Oriented and AO x 3
Psych: Calm
--- NOTE | 2024-04-12 11:30 | PTCARENOTE ---
patient arrived back from IR s/p IVC filter placement. denies pain, right neck band aide c/c/i, transferring with assist x1 with rolling walker, vss, will continue to monitor.
[2024-04-12 15:25] VITALS: BP 105/74; BP 115/76; PULSE 91; O2SAT 95
[2024-04-12 16:00] VITALS: BP 110/76
[2024-04-12] MEDS: STERILE WATER FOR INJECTION 20 ML IV (17:18)
[2024-04-12] MEDS: ROCEPHIN 2000 MG IV (17:23)
[2024-04-12] MEDS: BENADRYL 25 MG PO (18:26)
[2024-04-12 23:33] VITALS: BP 94/69
[2024-04-13 01:54] LABS: CMV Qnt NAAT Plasma Log IU/mL Not Detected log IU/mL; CMV Quant NAAT Plasma Interp Not Detected (Not Detected); CMV Quant by NAAT Plasma IU/mL Not Detected
[2024-04-13] MEDS: FLAGYL 500 MG PO ×3 (05:05→21:49)
[2024-04-13 05:22] LABS: % Basophils 0.2 % (0-2); % Eosinophils 0.1 % (0-6); % Immature Granulocytes 0.7 % (0-0.5); % Lymphocytes 8.8 % (20.5-51.1); % Monocytes 6.4 % (1.7-9.3); % Neutrophils 83.8 % (42.2-75.2); Absolute Immature Granulocytes 0.1 10^3/uL (0-0.05); Absolute Lymphocytes 1.4 10^3/uL (1.2-3.4); Absolute Neutrophils 13.5 10^3/uL (1.4-6.5); Hematocrit 30.3 % (39.0-52.0); Hemoglobin 10.5 g/dL (13.0-18.0); Mean Corp Hgb Conc. 34.7 g/dL (33.0-37.0); Mean Corpuscular Hgb 32.2 pg (27.0-31.0); Mean Corpuscular Volume 92.9 fL (80.0-94.0); Mean Platelet Volume 10.2 fL (7.4-10.4); Nucleated Red Blood Cells % 0 % (-); Platelet Count 185 10^3/uL (130-400); Red Blood Cell Count 3.26 10^6/uL (4.70-6.10); Red Cell Dist. Width 13.7 % (11.5-14.5); White Blood Cell Count 16.1 10^3/uL (4.8-10.8)
[2024-04-13 05:43] LABS: ALT (SGPT) 37 U/L (0-50); AST (SGOT) 46 U/L (17-59); Albumin 2.8 g/dl (3.5-5.0); Alkaline Phosphatase 478 U/L (38-126); Blood Urea Nitrogen 17 mg/dl (9-20); Calcium 8.4 mg/dl (8.4-10.2); Carbon Dioxide 25 mmol/L (22-30); Chloride 100 mmol/L (98-107); Estimated Creatinine Clearance 97 ml/min; Glucose 115 mg/dl (70-99); Potassium 4.5 mmol/L (3.5-5.1); Sodium 131 mmol/L (135-145); Total Bilirubin 1.8 mg/dl (0.2-1.3); Total Protein 5.7 g/dl (6.3-8.2); eGFR > 60.00
[2024-04-13 06:16] LABS: CMV IgM Antibody <8.0 AU/mL (<=29.9)
[2024-04-13 06:44] LABS: CMV IgG Antibody <0.20 U/mL (<=0.70)
[2024-04-13 07:05] VITALS: BP 108/77
[2024-04-13] MEDS: NSS (PRESERVATIVE FREE) 10 ML IV (07:33)
[2024-04-13] MEDS: PROTONIX IV 40 MG IV (07:33)
[2024-04-13] MEDS: ZENPEP DELAYED RELEASE CAPSULE 1 CAPSULE PO ×3 (07:34→21:49)
--- NOTE | 2024-04-13 09:36 | W.PN.GI.CBS2 ---
Today's Communication / Plan
-
change PPI to bid po
Assessment / Plan
-
Plan:
if hgb stable tomorrow can restart anticoagulation if needed although IVC filter placed yesterday
change PPI to po bid
lfts abnormal due to metastatic disease
await fluid cytology
Subjective
Subjective
Date of Service: April 13, 2024
Pt with no bleeding. no abd pain.
Objective
Data Reviewed
Laboratory Data:
Laboratory Results
04/13/24 05:02
04/13/24 05:02
Laboratory Results
PT 22.1 Sec (11.4-14.6) H 04/12/24 08:02
INR 1.91 04/12/24 08:02
APTT 36.2 Sec (23.4-35.0) H 04/12/24 08:02
Total Bilirubin 1.8 mg/dl (0.2-1.3) H 04/13/24 05:02
AST 46 U/L (17-59) 04/13/24 05:02
ALT 37 U/L (0-50) 04/13/24 05:02
Alkaline Phosphatase 478 U/L (38-126) H 04/13/24 05:02
Vital Signs and I&O:
Vital Signs
Temp Pulse Resp BP Pulse Ox
98.4 F 98 18 108/77 98
04/13/24 07:05 04/13/24 07:05 04/13/24 07:05 04/13/24 07:05 04/13/24 07:05
I&O
04/12/24 04/13/24 04/14/24
05:59 06:59 06:59
Intake Total
Output Total
Balance
Physical Exam
Physical Exam
Cardiology: S1 and S2
GI: Distended (non tense ascites)
[2024-04-13] MEDS: PROTONIX 40 MG PO ×2 (09:56→20:03)
--- NOTE | 2024-04-13 09:57 | W.PN.HOSP.TC ---
Today's Communication/Plan
-
s/p IVF placement. Will need repeated paracentesis - GI working on either scheduling intermittent drain or placement of perm peritoneal cath
Assessment / Plan
Assessment / Plan
Impression:
69-year-old with metastatic pancreatic cancer on chemotherapy last chemotherapy was ago presenting with abdominal distention abdominal pain nausea and vomiting. Has leukocytosis and elevated total bilirubin and alk phos. History complicated by
history of PE on Eliquis. History in addition he has severe lactic acidosis of 5.8, INR was 2.3, sodium 128. Is hemodynamically stable with somewhat soft blood pressure of 90s over 60. Suspect pain from ascites with possibility of new biliary
obstruction. UA is equivocal although is positive he does have lots of squamous cells. He has ongoing chronic diarrhea and is highly dehydrated but cannot rule out sepsis in the setting of elevated lactic acid and elevated PVCs.
Sepsis.
� Suspect intra-abdominal source, possible SBP/biliary obstruction
New onset of ascites suspect malignant with possible SBP
Elevated LFTs mixed pattern with significant bilirubinemia
Concerns for enteritis�colitis related to recent immunotherapy
Hematemesis on presentation.
Acute blood loss anemia
Acute kidney injury.
Lactic acidosis.
Hypovolemic hyponatremia.
Conditions prior to admission:
Metastatic pancreatic adenocarcinoma with hepatic mets, vascular involvement
Biliary stent in place
Status post Folfironix Keytruda Futinatinib
Reported associated colitis requiring Remicade
Recently on trial therapy
Recent diagnosis of pulmonary embolism initiated on Eliquis
04/09/24 CT A/p
Appearance of colonic and small bowel wall thickening concerning for enterocolitis. New. Findings due to limited distention cannot be completely excluded. Limited exam without oral contrast.
Findings consistent with known pancreatic head mass. . Stable
Hypodense hepatic lesions consistent with known hepatic metastasis. Stable.
Pneumobilia. Improved. Biliary and pancreatic stents. Stable.
Large amount of abdominopelvic ascites. Progressed.
Hepatic fatty infiltration. Stable
Nodular hepatic margin suggesting cirrhosis. Stable.
Findings suggesting mild volume overload or third spacing. Stable
Small left renal cysts. Stable.
Mild diverticulosis. Stable
04/03/24 CT Chest/abd/pel W Iv Cont
1. There are new pulmonary emboli involving the right interlobar artery and truncus anterior which extend into the right segmental pulmonary arteries. There is a left lower lobe lobar embolus which extends into 2 lower lobe segmental pulmonary
arteries.
2. There is increased size of the hypoattenuating mass within the pancreatic head which measures up to 5.0 cm, previously 4.7 cm. There is persistent encasement and narrowing of the superior mesenteric artery and vein. There is new narrowing of the
proximal main portal vein.
3. Increased size of the hepatic metastasis with new metastasis including a 4.0 cm lesion in the caudate lobe.
4. New large volume ascites.
Plan:
Sepsis/SIRS
Septic shock with hypotension likely multifactorial due to dehydration and possible SBP
Suspect biliary source or SBP. New onset of ascites.
Status post paracentesis 04/09 6500 mL with elevated PMN count. Elevated white count in ascitic fluid could be related to malignant ascites versus SBP SAAG>1.1 - transudate with low protein, most likely hepatic origin, path pending
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
Reports improved diarrhea
Blood culture negative to date
Ascitic fluid with pending Gram stain and cultures negative to date
Antibiotics consolidated to ceftriaxone
ID consultation appreciated
Acute kidney injury
Hyponatremia
Hypovolemic hyponatremia.
Lactic acidosis.
Bladder scan with no retention
Low urine sodium with increased urine osm likely consistent with volume depletion as well as component of ADH
Creatinine trending down with volume expansion
Completed course of albumin
Hold further IV fluids and monitor oral intake and sodium level
Follow serial BMP and lactic acid level
Hematemesis upon presentation.
EGD 04/11 with duodenal ulcer nonbleeding, erosive
Diet has been advanced
Hold anticoagulation as recommended
Continue IV PPI
Acute anemia secondary to blood loss as well as dilutional hemoglobin trending down 13.3�8.8
Follow CBC
Recent diagnosis of pulmonary embolism
Initiated on Eliquis on 04/03
Has been off anticoagulation since admission due to hematemesis
[employer] placed IVC filter on 04/12/24
Metastatic pancreatic carcinoma with biliary obstruction
New onset of likely malignant ascites
Monitor for reaccumulation.
Consider to repeat paracentesis
Consider Pleurx prior to discharge
Follow LFT
Palliative service consult
Full code
Anticipated Discharge: 24 - 48 hours
Subjective/Interval History
-
Date of Service: April 13, 2024
Objective Data
-
Labs:
Laboratory Results
04/13/24
05:02
WBC 16.1 H
Hgb 10.5 L
Hct 30.3 L
Plt Count 185
Sodium 131 L
Potassium 4.5
Chloride 100
Carbon Dioxide 25
BUN 17
Creatinine 0.8
Glucose 115 H
Calcium 8.4
Total Bilirubin 1.8 H
AST 46
ALT 37
Alkaline Phosphatase 478 H
Vital Signs:
Vital Signs
Temp Pulse Resp BP Pulse Ox
98.4 F 98 18 108/77 98
04/13/24 07:05 04/13/24 07:05 04/13/24 07:05 04/13/24 07:05 04/13/24 07:05
I&O
04/12/24 04/13/24 04/14/24
05:59 06:59 06:59
Intake Total
Output Total
Balance
Review of Systems
-
History Source: Patient
All other systems: Reviewed and negative
Physical Exam
-
General: No Apparent Distress and Comfortable
Respiratory: Clear to Auscultation
Cardiac: Regular Rhythm
GI: Soft, Nontender and Distended
Musculoskeletal: No Clubbing, No Cyanosis and No Edema
Neuro: Awake, Alert, Oriented and AO x 3
Psych: Calm
[2024-04-13] MEDS: ZENPEP DELAYED RELEASE CAPSULE PO (14:23)
[2024-04-13 15:05] VITALS: BP 107/66
[2024-04-13] MEDS: STERILE WATER FOR INJECTION 20 ML IV (17:51)
[2024-04-13] MEDS: ROCEPHIN 2000 MG IV (17:51)
[2024-04-13] MEDS: BENADRYL 25 MG PO (20:03)
[2024-04-13 23:35] VITALS: BP 118/81
[2024-04-14] MEDS: FLAGYL 500 MG PO (05:20)
[2024-04-14 07:39] VITALS: BP 102/69
[2024-04-14] MEDS: ZENPEP DELAYED RELEASE CAPSULE 1 CAPSULE PO (08:06)
[2024-04-14] MEDS: PROTONIX 40 MG PO (08:06)
--- NOTE | 2024-04-14 09:03 | W.PN.GI.CBS2 ---
Today's Communication / Plan
-
PPI bid po
o/p f/u with Dr Garrison
Assessment / Plan
-
Plan:
stable hgb continue ppi bid
lfts abnormal due to metastatic disease
await fluid cytology
ascites stable
f/u with Dr Garrison as outpatient, our office will call
will sign off call with questions
Subjective
Subjective
Date of Service: April 14, 2024
Pt with no gi bleeding, abdomen with no tenderness
Objective
Data Reviewed
Laboratory Data:
Laboratory Results
04/13/24 05:02
04/13/24 05:02
Laboratory Results
PT 22.1 Sec (11.4-14.6) H 04/12/24 08:02
INR 1.91 04/12/24 08:02
APTT 36.2 Sec (23.4-35.0) H 04/12/24 08:02
Total Bilirubin 1.8 mg/dl (0.2-1.3) H 04/13/24 05:02
AST 46 U/L (17-59) 04/13/24 05:02
ALT 37 U/L (0-50) 04/13/24 05:02
Alkaline Phosphatase 478 U/L (38-126) H 04/13/24 05:02
Vital Signs and I&O:
Vital Signs
Temp Pulse Resp BP Pulse Ox
97.9 F 91 16 102/69 94
04/14/24 07:39 04/14/24 07:39 04/14/24 07:39 04/14/24 07:39 04/14/24 07:39
I&O
04/13/24 04/14/24 04/15/24
06:59 06:59 06:59
Intake Total 2039
Balance 2039
Physical Exam
Physical Exam
GI: Distended (ascites but stable, not increased)
Neuro: Non Focal
--- NOTE | 2024-04-14 10:03 | W.PN.ONC2 ---
Today's Communication / Plan
-
.
Impression
Impression
metastatic pancreatic cancer
Symptomatic ascites s/p therapeutic/diagnostic para 04/09 -5600cc. Has not needed prn analgesia since para.
ABLA secondary to UGIB -EGD w coffee ground, Multiple diffuse erosions in the duodenum edema and erythema and some oozing on contact
Pulmonary emboli dx 04/03/[address]
Plan
Plan
follow gastric bx pathology
ascites cultures,negative to date. Follow ascites cytology. discussed need for prn para upon discharge through our office
Hgb stable, would resume anticoagulation with recent acute PE (04/03) and remains high risk for VTE due to malignancy
IVC filter while off AC -will determine if can be removed in OP follow up
on PPI
on IVabx
Goals of care restorative. He is yet to have a significant opportunity for systemic therapy.
Plan for dc home with home care and palliative care
Optimize PS, nutrition -PT, OT, dietary
Subjective/Objective
Subjective
no new complaints
black stool
eager for discharge
Vital Signs:
Vital Signs
Temp Pulse Resp BP Pulse Ox
97.9 F 91 16 102/69 94
04/14/24 07:39 04/14/24 07:39 04/14/24 07:39 04/14/24 07:39 04/14/24 07:39
Lab Results:
Laboratory Data
WBC 16.1 10^3/uL (4.8-10.8) H 04/13/24 05:02
Hgb 10.5 g/dL (13.0-18.0) L 04/13/24 05:02
Plt Count 185 10^3/uL (130-400) 04/13/24 05:02
PT 22.1 Sec (11.4-14.6) H 04/12/24 08:02
INR 1.91 04/12/24 08:02
APTT 36.2 Sec (23.4-35.0) H 04/12/24 08:02
eGFR > 60.00 04/13/24 05:02
--- NOTE | 2024-04-14 10:43 | CM ---
manager graphic reviewed patient's chart and met with patient and Paty RAMOS at bedside, patient is for possible discharge today, patient is off oxygen and is ambulating 80 feet times 2, patient is on room air. Plan is to home with visiting nurses,
options reviewed with patient and patient has selected VN, VN liaison contacted.
Plan; Home with Paty GARIBAY for patient to transport patient to home.
--- NOTE | 2024-04-14 11:32 | W.PN.PAL2 ---
Today's Communication
-
Palliative Care Follow up note, total time on floor 25 mins.
Patient seen in the room, present.
He reports he is feeling better today, no abdominal pain, reports they are discussing discharge plans. Reviewed palliative care services with patient and , will plan for home palliative care, visit to be scheduled.
reports CM is setting up VN/homecare.
He reports that if his strength improves, his goals are treatment directed and would follow up with oncology regarding options.
Assessment / Plan
-
Assessment/Plan:
Plan for home palliative care after discharge, VN.
Goals are treatment oriented at this time.
Reason for Admission
Illness Course/HPI
69 year old M with PMH of metastatic pancreatic cancer (liver, vascular mets) dx November 2023 s/p biliary stent placement admitted with increasing abdominal discomfort and new ascites.
In terms of oncology treatment, received an initial systemic treatment with clinical trial s/p 3 cycles (last 01/2024) c/b intractable colitis s/p 2 cycles of Remicade and aggressive support. Started on creon with some improvement in diarrhea.
Unfortunately, recent CT scan for restaging purposes revealed evidence of large burden PE and evidence of progressive disease. Started Eliquis for PE.
Admitted to ED with sudden onset of worsening discomfort and episodes of coffee-ground emesis. Also with ascites s/p paracentesis, c/f SBP vs malignancy ascites, still pending but on ABX. ID following. Eliquis reversed with no additional episodes of
coffee-ground emesis. Per oncology, he was planned to start second line chemo this week but his performance status has steadily declined so this was deferred.
Oncology spoke with patient about palliative/hospice vs restorative treatment. Goals remain restorative at this time.
Seen at bedside with significant other and 2 sons present. Discussed role of PC service. They are interested in following as an outpatient. Their goals are to hopefully get him back to treatment once he gets PT/OT. Thankfully his symptoms are well
managed at this time.
Objective Data
-
Objective Data:
Vital Signs
Temp Pulse Resp BP Pulse Ox
97.9 F 91 16 102/69 94
04/14/24 07:39 04/14/24 07:39 04/14/24 07:39 04/14/24 07:39 04/14/24 07:39
Laboratory Results
04/13/24 05:02
04/13/24 05:02
PT 22.1 Sec (11.4-14.6) H 04/12/24 08:02
INR 1.91 04/12/24 08:02
APTT 36.2 Sec (23.4-35.0) H 04/12/24 08:02
Total Protein 5.7 g/dl (6.3-8.2) L 04/13/24 05:02
Albumin 2.8 g/dl (3.5-5.0) L 04/13/24 05:02
Urine Color [place] 04/09/24 18:39
Urine Clarity Clear (Clear) 04/09/24 18:39
Urine pH 5.0 (5.0-9.0) 04/09/24 18:39
Ur Specific [place] 1.020 (<1.030) 04/09/24 18:39
Urine Ketones 1+ (Negative) A 04/09/24 18:39
Urine Bilirubin 1+ (Negative) A 04/09/24 18:39
Palliative Performance Scale
Palliative Performance Scale:
PPS Level Ambulation Activity & Evidence of Disease Self Care Intake Conscious Level
100% Full Normal Activity & Work; Full Intake Full
No Evidence of Disease
90% Full Normal Activity & Work; Full Normal Full
Some Evidence of Disease
80% Full Normal Activity with Effort Full Normal or Full
Some Evidence of Disease Reduced
70% Reduced Unable Normal Job/Work Full Normal or Full
Significant Disease Reduced
60% Reduced Unable Hobby/Housework Occasional Normal or Full or Confusion
Significant Disease Assistance Reduced
50% Mainly Sit/Lie Unable to do Any Work Considerable Normal or Full or Confusion
Extensive Disease Assistance Req'd Reduced
40% Mainly in Bed Unable to do Most Activity Mainly Assistance Normal or Full or Drowsy;
Extensive Disease Reduced +/- Confusion
30% Totally Bed Unable to do Any Activity Total Care Normal or Full or Drowsy;
Bound Extensive Disease Reduced +/- Confusion
20% Totally Bed Bound Unable to do Any Activity Total Care Minimal to Full or Drowsy;
Extensive Disease Sips +/- Confusion
10% Totally Bed Bound Unable to do Any Activity Total Care Mouth Care Drowsy or Coma;
Extensive Disease Only +/- Confusion
0%
PPS Score Level:
Physical Exam
-
General: No Apparent Distress
GI: Distended and Ascites
Neuro: Awake and Alert
Psych: Calm
--- NOTE | 2024-04-14 11:35 | VNURNOTE ---
Home Health Liaison met with patient and sig other Paty at bedside to discuss [facility] nurse/therapy, visits, schedule and homebound status. Both are agreeable and understand that visits at home will be 2-3 x per week to assess and teach medical
management. Both are aware that [facility] will contact them for start of care in 1-2 days after discharge from .
[facility] referral completed in [facility].
--- NOTE | 2024-04-14 12:58 | W.PN.ID1 ---
Date of Service
Date of Service: April 14, 2024
Today's Communication
- body fluid could be consistent with malignant ascites or SBP - follow up pathology; overall suspect malignant
- completed a 5 day course of ceftriaxone, no plans for repeat paracentesis at this time - stopped
Assessment / Plan
Malignant Ascites vs SBP
Likely chronic Enteritis
Pancreatic Cancer - Metastatic
Suspected Cirrhosis
- body fluid could be consistent with malignant ascites or SBP - follow up pathology; overall suspect malignant
- completed a 5 day course of ceftriaxone, no plans for repeat paracentesis at this time - stopped
- follow up blood cultures
Chronic diarrhea
Likely chronic enteritis
- CMV serologies negative - unlikely that patient's diarrhea is due to CMV
Note that goal is currently restorative
Chief Complaint
-: Other (sbp vs malignant ascites)
Subjective / Review of Systems
afebrile
bp stable
sleeping and not disturbed at request
Vital Signs / Physical Exam
Vital Signs
Vital Signs
Temp Pulse Resp BP Pulse Ox
97.9 F 91 16 102/69 94
04/14/24 07:39 04/14/24 07:39 04/14/24 07:39 04/14/24 07:39 04/14/24 07:39
Physical Exam
Constitutional: No Acute Distress
Cardiovascular: Regular Rate
Pulmonary: Symmetric and Non Labored
Gastrointestinal: Non Distended
Skin: Dry; Negative Rash or Jaundice
Neurological: Negative Awake
Objective Data
Lab Data
Lab Results
04/13/24 05:02
04/13/24 05:02
PT 22.1 Sec (11.4-14.6) H 04/12/24 08:02
INR 1.91 04/12/24 08:02
APTT 36.2 Sec (23.4-35.0) H 04/12/24 08:02
Estimated Creat Clear 97 ml/min 04/13/24 05:02
Lactic Acid Cancelled 04/10/24 06:00
Total Bilirubin 1.8 mg/dl (0.2-1.3) H 04/13/24 05:02
AST 46 U/L (17-59) 04/13/24 05:02
ALT 37 U/L (0-50) 04/13/24 05:02
Alkaline Phosphatase 478 U/L (38-126) H 04/13/24 05:02
Most recent labs reviewed.
Micro Results:
04/09/24 11:02 Blood Culture - Final
Blood/Venous No Growth - Final Report
04/09/24 14:17 Blood Culture - Preliminary
Blood/Venous No Growth in 4 days- Final report to follow
04/09/24 11:53 Body Fluid Culture - Final
Peritoneal Fluid NO GROWTH-FINAL REPORT
Gram Stain - Final
04/09/24 18:39 Urine Culture - Final
Urine NO GROWTH
--- NOTE | 2024-04-14 14:43 | W.DS.TRANS ---
DC Summary - Health Service Coordinator
-
Discharge Instructions:
Discharge Diagnosis/Procedures Pancreatic CA.
Malignant ascites
Acute blood loss anemia
Duodenal Ulcer
Diet Regular
Instructions:
Stand-Alone Forms:
Changes to Home Medications: Yes
Discharge Medications:
DC Medications w/original date entered in [facility]
loperamide 2 mg capsule 4 mg PO Q6HPRN PRN dose after each loose BM 01/04/24
diphenhydramine HCl 25 mg capsule (ZzzQuil) 25 mg PO HSPRN PRN sleep 04/11/24
diphenoxylate-atropine 2.5 mg-0.025 mg tablet 1 tab PO Q6HPRN PRN diarrhea 04/11/24
hreibh-uxvpplvq-fczwlbv 24,000-76,000-120,000 unit capsule,delayed rel (Creon) 1 cap PO AC digestion 04/11/24
oxycodone 5 mg tablet 5 mg PO Q6H Pain 04/11/24
prochlorperazine maleate 10 mg tablet 10 mg PO Q6H PRN nausea/vomiting 04/11/24
pantoprazole 40 mg tablet,delayed release 40 mg PO BID #60 tabs 04/14/24
Home Medication Changes
Eliquis stopped
Protonix initiated
Pending Results: Yes
Additional Pending Results:
Ascitic fluid cytology
[2024-04-14 14:56] VITALS: BP 120/82
--- NOTE | 2024-04-14 15:25 | VATNOTE ---
right subq port deaccessed per protocol with brisk blood return noted prior to.
== END 2024-04-14 17:47 | disposition home health service (06) | DRG 435 ==
LOC: 3 WEST ACU 04:20
PROVIDERS: Internal Medicine; Nurse Practitioner Acute Care; Nurse Practitioner Adult Health; Nurse Practitioner Family; Radiology Vascular & Interventional Radiology; ADMITTING PHYSICIAN Internal Medicine; ATTENDING PHYSICIAN Internal Medicine; CONSULT PHYSICIAN Specialist; CONSULT PHYSICIAN Student in an Organized Health Care Education/Training Program; EMERGENCY PHYSICIAN Student in an Organized Health Care Education/Training Program; FAMILY PHYSICIAN Student in an Organized Health Care Education/Training Program; OTHER PHYSICIAN Internal Medicine Hematology & Oncology; OTHER PHYSICIAN Nurse Practitioner Gerontology
PROC: 0W9G3ZZ Drainage of Peritoneal Cavity, Percutaneous Approach (ICD-10-PCS; 2024-04-09)
PROC: 0DB68ZX Excision of Stomach, Via Natural or Artificial Opening Endoscopic, Diagnostic (ICD-10-PCS; 2024-04-11)
PROC: 06H03DZ Insertion of Intraluminal Device into Inferior Vena Cava, Percutaneous Approach (ICD-10-PCS; 2024-04-12)
DX: C25.9 Malignant neoplasm of pancreas, unspecified (principal); I26.99 Other pulmonary embolism without acute cor pulmonale; K55.059 Acute (reversible) ischemia of intestine, part and extent unspecified; K26.4 Chronic or unspecified duodenal ulcer with hemorrhage; K83.1 Obstruction of bile duct; R65.10 Systemic inflammatory response syndrome (SIRS) of non-infectious origin without acute organ dysfunction; R18.0 Malignant ascites; E87.20 Acidosis, unspecified; E87.1 Hypo-osmolality and hyponatremia; N17.9 Acute kidney failure, unspecified; C78.7 Secondary malignant neoplasm of liver and intrahepatic bile duct; D62 Acute posthemorrhagic anemia; D68.9 Coagulation defect, unspecified; I95.9 Hypotension, unspecified; Z86.711 Personal history of pulmonary embolism; Z51.5 Encounter for palliative care; E86.1 Hypovolemia; Z79.01 Long term (current) use of anticoagulants; E86.0 Dehydration; K57.30 Diverticulosis of large intestine without perforation or abscess without bleeding; Z80.1 Family history of malignant neoplasm of trachea, bronchus and lung; Z92.21 Personal history of antineoplastic chemotherapy
CPT/HCPCS: 88305; 37191; 49083; 74177; 80053; 81003; 81015; 82042; 82150; 82248; 82570; 83605; 83615; 83935; 84157; 84300; 85025; 85610; 85730; 86644; 86645; 86850; 86900; 86901; 87015; 87040; 87070; 87086; 87205; 87497; 88112; 88342; 89051; 93005; 96361; 96365; 96366; 96375; 97162; 99285; C1769; C1880; P9047; Q9967

== ENCOUNTER → 2024-04-18 07:43 | Outpatient (REF) | payer OTHER, SELFPAY ==
[2024-04-18 07:55] VITALS: BP 105/82; BP_SYST 92
[2024-04-18 08:35] VITALS: BP 91/65; BP_SYST 94
[2024-04-18 08:53] VITALS: BP 91/65
[2024-04-18 11:49] LABS: Body Fluid Mononuclear 43.9 %; Body Fluid Polymorphonuclear 56.1 %; Body Fluid WBC 634 /CUMM
[2024-04-18 11:51] LABS: Body Fluid Second Tech AMA
== END ==
LOC: RADI 07:43
PROVIDERS: ATTENDING PHYSICIAN Nurse Practitioner Acute Care; FAMILY PHYSICIAN Student in an Organized Health Care Education/Training Program
DX: R18.8 Other ascites (principal)
CPT/HCPCS: 49083; 89051

== ENCOUNTER → 2024-04-25 09:37 | Outpatient (REF) | payer OTHER, SELFPAY ==
[2024-04-25 10:00] VITALS: BP 89/71; BP_SYST 102
[2024-04-25 10:14] VITALS: BP 99/74; BP_SYST 100
[2024-04-25] MEDS: ANCEF 10 IV (10:29)
== END ==
LOC: RADI 09:37
PROVIDERS: ATTENDING PHYSICIAN Internal Medicine Hematology & Oncology
DX: R18.8 Other ascites (principal)
CPT/HCPCS: 49418; C1729; C1769